=== PATIENT | male | born 1950 | race Caucasian/White ===

== ENCOUNTER 2017-04-30 14:13 | Observation (INO) | payer OTHER ==
[2017-04-30 14:13] VITALS: BP 144/92; PULSE 133; RESP 24; TEMP 98.2; O2SAT 95
[2017-04-30 14:30] VITALS: O2SAT 97
[2017-04-30] MEDS ORDERED: LEVOFLOXACIN 750 MG TAB PO ONE (14:30)
[2017-04-30] MEDS ORDERED: predniSONE 20 MG TAB PO ONE (14:30)
[2017-04-30] MEDS ORDERED: AZITHROMYCIN 250 MG TAB PO ONE (14:30)
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
[2017-04-30] MEDS: RESP: ALBUTEROL 2.5 MG/IPRATROPIUM 0.5 MG NEB (SCH) INH (14:57)
--- NOTE | 2017-04-30 16:20 | RADRPT ---
EXAM DATE/TIME: 04/30/2017 15:47 [facility] COMPARISON: No previous studies available for comparison. INDICATIONS : Chest pain and dyspnea. MEDICAL HISTORY : Chronic obstructive pulmonary disease. SURGICAL HISTORY : Tonsillectomy. Left shoulder. ENCOUNTER: Initial ACUITY: 1 day PAIN SCORE: 0/10 LOCATION: Bilateral chest FINDINGS: Bibasilar streakiness is noted consistent with atelectasis and/or scarring. The heart and mediastina l structures are normal. The pulmonary vascular pattern is normal. Hardware is noted within the left humerus. CONCLUSION: Bibasilar streakiness consistent with atelectasis and/or scarring. Sundar Salcido MD on April 30, 2017 at 16:13 Board Certified Radiologist. This report was verified electronically.
[2017-04-30] MEDS ORDERED: AZITHROMYCIN 250 MG TAB PO SCH (17:00)
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
[2017-04-30] MEDS ORDERED: SODIUM CHLORIDE 0.9% FLUSH 10 ML FLUSH IV FLUSH PRN (17:30)
[2017-04-30] MEDS ORDERED: RESP: ALBUTEROL 2.5 MG/3 ML NEB (PRN) INH (17:30)
[2017-04-30 17:37] LABS: AUTOMATED NEUTROPHIL # 9.5 TH/MM3 (1.8-7.7); BASOPHIL % 0.3 % (0.0-2.0); EOSINOPHIL # 0.2 TH/MM3 (0-0.4); EOSINOPHIL % 1.4 % (0.0-4.0); HEMATOCRIT 44.6 % (39.0-51.0); HEMO FLAGS DIFF FINAL; LYMPH % 11.3 % (9.0-44.0); LYMPHOCYTE # 1.3 TH/MM3 (1.0-4.8); MEAN CELL VOLUME 90.7 FL (80.0-100.0); MEAN CORPUSCULAR HEMOGLOBIN 29.9 PG (27.0-34.0); MONO % 5.1 % (0.0-8.0); NEUT % 81.9 % (16.0-70.0); PLATELET COUNT 219 TH/MM3 (150-450); RED BLOOD COUNT 4.92 MIL/MM3 (4.50-5.90); RED CELL DISTRIBUTION WIDTH 15.6 % (11.6-17.2); WHITE BLOOD COUNT 11.5 TH/MM3 (4.0-11.0)
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
[2017-04-30] MEDS ORDERED: RESP: ALBUTEROL 2.5 MG/IPRATROPIUM 0.5 MG NEB (PRN) NEB (17:45)
[2017-04-30 17:50] VITALS: BP 161/84; PULSE 112; RESP 24; O2SAT 97
[2017-04-30 17:57] LABS: BICARBONATE 27.9 MEQ/L (21.0-32.0); POTASSIUM 3.8 MEQ/L (3.5-5.1)
[2017-04-30] MEDS: SODIUM CHLORIDE 0.9% FLUSH 10 ML FLUSH IV FLUSH SCH (18:09)
[2017-04-30] MEDS: methylPREDNISolone SOD SUCC 125 MG/2 ML VIAL IVP SCH (18:09)
[2017-04-30 18:42] VITALS: BP 144/88; PULSE 120; RESP 16; TEMP 98.7; O2SAT 94
[2017-04-30] MEDS: RESP: ALBUTEROL 2.5 MG/IPRATROPIUM 0.5 MG NEB (SCH) NEB ×2 (19:58→22:06)
[2017-04-30 20:34] VITALS: BP 163/88; PULSE 130; RESP 20; TEMP 97.8; O2SAT 95
[2017-04-30] MEDS: BUDESONIDE-FORMOTEROL 160/4.5 MCG INHALER INH SCH (21:49)
[2017-04-30] MEDS ORDERED: RESP: ALBUTEROL 2.5 MG/IPRATROPIUM 0.5 MG NEB (SCH) INH (22:00)
[2017-04-30 22:08] VITALS: O2SAT 97
[2017-05-01] VITALS (8 sets, daily range): BP systolic 139–178; BP diastolic 79–94; PULSE 111–137; RESP 16–20; TEMP 97.4–98.6; O2SAT 93–98
[2017-05-01] MEDS: methylPREDNISolone SOD SUCC 125 MG/2 ML VIAL IVP SCH ×3 (00:50→12:32)
[2017-05-01] MEDS: RESP: ALBUTEROL 2.5 MG/IPRATROPIUM 0.5 MG NEB (SCH) NEB (07:21)
[2017-05-01] MEDS: BUDESONIDE-FORMOTEROL 160/4.5 MCG INHALER INH SCH ×2 (09:52→20:41)
[2017-05-01] MEDS: SODIUM CHLORIDE 0.9% FLUSH 10 ML FLUSH IV FLUSH SCH ×2 (09:53→20:42)
[2017-05-01] MEDS: LEVOFLOXACIN 750 MG TAB PO SCH (09:53)
[2017-05-01] MEDS: ENOXAPARIN SODIUM 40 MG/0.4 ML SYRINGE SQ SCH (09:53)
[2017-05-01] MEDS: RESP: IPRATROPIUM 0.5 MG/2.5 ML NEB NEB SCH ×2 (13:15→19:30)
[2017-05-01 14:31] LABS: BICARBONATE 26.1 MEQ/L (21.0-32.0); POTASSIUM 4.1 MEQ/L (3.5-5.1)
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
[2017-05-01] MEDS: predniSONE 20 MG TAB PO SCH (20:42)
[2017-05-02] VITALS (8 sets, daily range): BP systolic 138–183; BP diastolic 74–99; PULSE 102–121; RESP 15–22; TEMP 97.5–98.4; O2SAT 93–98
[2017-05-02 02:15] LABS: FREE T4 1.14 NG/DL (0.76-1.46)
[2017-05-02] MEDS: RESP: IPRATROPIUM 0.5 MG/2.5 ML NEB NEB SCH ×3 (07:59→20:42)
[2017-05-02] MEDS: NIFEdipine 60 MG SUSTAINED RELEASE TAB PO SCH (09:19)
[2017-05-02] MEDS: LEVOFLOXACIN 750 MG TAB PO SCH (09:19)
[2017-05-02] MEDS: predniSONE 20 MG TAB PO SCH ×2 (09:19→20:34)
[2017-05-02] MEDS: BUDESONIDE-FORMOTEROL 160/4.5 MCG INHALER INH SCH ×2 (09:20→20:34)
[2017-05-02] MEDS: ENOXAPARIN SODIUM 40 MG/0.4 ML SYRINGE SQ SCH (09:20)
[2017-05-02] MEDS: SODIUM CHLORIDE 0.9% FLUSH 10 ML FLUSH IV FLUSH SCH ×2 (09:21→20:34)
[2017-05-02] MEDS ORDERED: CYCLOBENZAPRINE HCL 10 MG TAB PO PRN (12:00)
[2017-05-02] MEDS: GABAPENTIN 100 MG CAP PO SCH ×2 (13:30→18:14)
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
--- NOTE | 2017-05-02 14:14 | EKG ---
Date Performed: 05/01/2017 Time Performed: 11:15:28 PTAGE: 66 years EKG: SINUS TACHYCARDIA WITH OCCASIONAL VENTRICULAR PREMATURE COMPLEXES ABNORMAL RHYTHM ECG Evangelista red to the PREVIOUS TRACING PVCs are new, otherwise no significant change. Previous heart rate 144 with sinus tachycardia. PREVIOUS TRACIN08/27/2014 14.58 DOCTOR: Jey Cross Interpretating Date/Time 05/02/2017 14:13:49
[2017-05-02 16:04] LABS: HEMOGLOBIN A1a 0.9 %; HEMOGLOBIN A1b 2.2 %; HEMOGLOBIN Ao 82.7 %; HEMOGLOBIN LA1C 2.1 %; HEMOGLOBIN P3 4.5 %
[2017-05-03] VITALS (8 sets, daily range): BP systolic 127–141; BP diastolic 60–80; PULSE 99–120; RESP 18–22; TEMP 96.6–98.1; O2SAT 96–99
[2017-05-03] MEDS: ACETAMINOPHEN 325 MG TAB PO PRN ×2 (07:05→22:38)
[2017-05-03] MEDS: RESP: IPRATROPIUM 0.5 MG/2.5 ML NEB NEB SCH ×3 (07:28→20:20)
[2017-05-03] MEDS: NIFEdipine 60 MG SUSTAINED RELEASE TAB PO SCH (09:30)
[2017-05-03] MEDS: GABAPENTIN 100 MG CAP PO SCH ×3 (09:30→18:23)
[2017-05-03] MEDS: LEVOFLOXACIN 750 MG TAB PO SCH (09:30)
[2017-05-03] MEDS: predniSONE 20 MG TAB PO SCH ×2 (09:30→22:37)
[2017-05-03] MEDS: SODIUM CHLORIDE 0.9% FLUSH 10 ML FLUSH IV FLUSH SCH ×2 (09:31→22:37)
[2017-05-03] MEDS: BUDESONIDE-FORMOTEROL 160/4.5 MCG INHALER INH SCH ×2 (09:31→22:39)
[2017-05-03] MEDS: ENOXAPARIN SODIUM 40 MG/0.4 ML SYRINGE SQ SCH (09:31)
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
[2017-05-03] MEDS ORDERED: MAGNESIUM HYDROXIDE SUSP 30 ML CUP PO PRN (10:00)
[2017-05-03] MEDS ORDERED: SENNOSIDES 8.6 MG TAB PO PRN (10:00)
[2017-05-03] MEDS ORDERED: NALOXONE HCL 0.4 MG/ML AMP IV PUSH PRN (10:00)
[2017-05-03] MEDS ORDERED: LACTULOSE SYRUP 20 GM/30 ML CUP PO PRN (10:00)
[2017-05-03] MEDS ORDERED: BISACODYL 10 MG SUPP RECTAL PRN (10:00)
[2017-05-03] MEDS: DOCUSATE SODIUM 50 MG/SENNA 8.6 MG TAB PO SCH (22:37)
[2017-05-03] MEDS ORDERED: GLUCAGON 1 MG/ML VIAL OTHER PRN (23:45)
[2017-05-03] MEDS ORDERED: DEXTROSE 50% IN WATER 50 ML VIAL(D50) IV PRN (23:45)
[2017-05-04] VITALS (8 sets, daily range): BP systolic 99–147; BP diastolic 65–79; PULSE 106–125; RESP 15–18; TEMP 97.6–98.6; O2SAT 93–98
[2017-05-04] MEDS: RESP: IPRATROPIUM 0.5 MG/2.5 ML NEB NEB SCH ×3 (07:35→19:33)
[2017-05-04] MEDS: INSULIN ASPART SUPPLEMENTAL SCALE SQ SCH ×4 (08:00→20:18)
[2017-05-04] MEDS: DOCUSATE SODIUM 50 MG/SENNA 8.6 MG TAB PO SCH ×2 (08:01→20:08)
[2017-05-04] MEDS: LEVOFLOXACIN 750 MG TAB PO SCH (08:08)
[2017-05-04] MEDS: NIFEdipine 60 MG SUSTAINED RELEASE TAB PO SCH (08:08)
[2017-05-04] MEDS: GABAPENTIN 100 MG CAP PO SCH ×3 (08:08→17:54)
[2017-05-04] MEDS: SODIUM CHLORIDE 0.9% FLUSH 10 ML FLUSH IV FLUSH SCH ×2 (08:08→20:17)
[2017-05-04] MEDS: ENOXAPARIN SODIUM 40 MG/0.4 ML SYRINGE SQ SCH (08:08)
[2017-05-04] MEDS: predniSONE 20 MG TAB PO SCH ×2 (08:08→20:08)
[2017-05-04] MEDS: BUDESONIDE-FORMOTEROL 160/4.5 MCG INHALER INH SCH ×2 (08:09→20:12)
[2017-05-04] MEDS ORDERED: VENTAER INH (14:54)
[2017-05-04] MEDS ORDERED: METF500T PO (14:54)
[2017-05-04] MEDS ORDERED: LEVA750T9 PO (14:54)
[2017-05-04] MEDS ORDERED: NIFE60TA8 PO (14:54)
[2017-05-04] MEDS ORDERED: SYMB160A INH (14:54)
[2017-05-04] MEDS ORDERED: ALBUTEROL SULFATE 90 MCG/ACT HFA 18 GM INHALER INH PRN (15:00)
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
[2017-05-04] MEDS: INSULIN DETEMIR 100 UNITS/ML VIAL SQ SCH (20:17)
[2017-05-05 03:26] VITALS: BP 132/71; PULSE 102; RESP 18; TEMP 98.1; O2SAT 98
[2017-05-05] MEDS: RESP: IPRATROPIUM 0.5 MG/2.5 ML NEB NEB SCH ×3 (07:48→19:53)
[2017-05-05 07:55] VITALS: O2SAT 95
[2017-05-05] MEDS: INSULIN ASPART SUPPLEMENTAL SCALE SQ SCH ×4 (08:00→21:09)
[2017-05-05 08:12] VITALS: BP 138/76; PULSE 100; RESP 16; TEMP 98.5; O2SAT 97
[2017-05-05] MEDS: BUDESONIDE-FORMOTEROL 160/4.5 MCG INHALER INH SCH ×2 (08:36→21:07)
[2017-05-05] MEDS: LEVOFLOXACIN 750 MG TAB PO SCH (08:36)
[2017-05-05] MEDS: SODIUM CHLORIDE 0.9% FLUSH 10 ML FLUSH IV FLUSH SCH ×2 (08:36→21:07)
[2017-05-05] MEDS: NIFEdipine 60 MG SUSTAINED RELEASE TAB PO SCH (08:36)
[2017-05-05] MEDS: GABAPENTIN 100 MG CAP PO SCH ×3 (08:37→17:14)
[2017-05-05] MEDS: ENOXAPARIN SODIUM 40 MG/0.4 ML SYRINGE SQ SCH (08:38)
[2017-05-05] MEDS: DOCUSATE SODIUM 50 MG/SENNA 8.6 MG TAB PO SCH ×2 (08:38→21:06)
[2017-05-05] MEDS: predniSONE 20 MG TAB PO SCH ×2 (08:38→21:06)
[2017-05-05 11:57] VITALS: BP 148/72; PULSE 114; RESP 17; TEMP 98.8; O2SAT 95
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
[2017-05-05] MEDS: ACETAMINOPHEN 325 MG TAB PO PRN (16:19)
[2017-05-05 19:50] VITALS: BP 132/66; PULSE 117; RESP 18; TEMP 98.2; O2SAT 97
[2017-05-05 19:54] VITALS: O2SAT 96
[2017-05-05] MEDS: CARVEDILOL 6.25 MG TAB PO SCH (21:06)
[2017-05-05] MEDS: INSULIN DETEMIR 100 UNITS/ML VIAL SQ SCH (21:08)
[2017-05-06 05:00] VITALS: BP 132/67; PULSE 97; RESP 18; TEMP 98.4; O2SAT 97
[2017-05-06] MEDS: RESP: IPRATROPIUM 0.5 MG/2.5 ML NEB NEB SCH (07:37)
[2017-05-06 07:38] VITALS: O2SAT 98
[2017-05-06 07:43] VITALS: BP 140/77; PULSE 108; RESP 20; TEMP 97.4; O2SAT 98
[2017-05-06] MEDS: INSULIN ASPART SUPPLEMENTAL SCALE SQ SCH (08:00)
[2017-05-06] MEDS: CARVEDILOL 6.25 MG TAB PO SCH (08:15)
[2017-05-06] MEDS: predniSONE 20 MG TAB PO SCH (08:15)
[2017-05-06] MEDS: LEVOFLOXACIN 750 MG TAB PO SCH (08:15)
[2017-05-06] MEDS: GABAPENTIN 100 MG CAP PO SCH (08:15)
[2017-05-06] MEDS: DOCUSATE SODIUM 50 MG/SENNA 8.6 MG TAB PO SCH (08:15)
[2017-05-06] MEDS: SODIUM CHLORIDE 0.9% FLUSH 10 ML FLUSH IV FLUSH SCH (08:15)
[2017-05-06] MEDS: NIFEdipine 60 MG SUSTAINED RELEASE TAB PO SCH (08:15)
[2017-05-06] MEDS: ENOXAPARIN SODIUM 40 MG/0.4 ML SYRINGE SQ SCH (08:16)
[2017-05-06] MEDS: BUDESONIDE-FORMOTEROL 160/4.5 MCG INHALER INH SCH (09:27)
[2017-05-06] MEDS ORDERED: CARV6.25 PO (10:01)
== END 2017-05-06 11:43 | disposition home or self-care (01) ==
LOC: NEPB 14:13 → NEDA 17:19 → NEPHCDU 19:16
PROVIDERS: ADMIT Hospitalist; ATTEND Hospitalist
DX: J44.1 Chronic obstructive pulmonary disease with (acute) exacerbation (principal); N17.9 Acute kidney failure, unspecified; E11.65 Type 2 diabetes mellitus with hyperglycemia; R00.0 Tachycardia, unspecified; Z99.81 Dependence on supplemental oxygen; Z87.891 Personal history of nicotine dependence; Z79.4 Long term (current) use of insulin
CPT/HCPCS: 71020; 80048; 82948; 83036; 84439; 84443; 85025; 87804; 93005; 94150; 94640; 94664; 96372; 96374; 96376; 99285; G0378; J1650; J1815; J2930; J7512; J7644

== ENCOUNTER 2017-09-25 13:24 | Observation (INO) | payer OTHER ==
[~2017-09-25] VITALS: Ht 175.3 cm; Wt 110.0 kg
[2017-09-25] VITALS (7 sets, daily range): BP systolic 132–171; BP diastolic 73–87; PULSE 121–135; RESP 18–32; TEMP 97.3–98.5; O2SAT 93–97
[~2017-09-25 13:24] MED LIST: CARV6.25 PO; METF500T PO; NIFE60TA8 PO; SYMB160A INH; VENTAER INH
[2017-09-25] MEDS ORDERED: SODIUM CHLORIDE 0.9% FLUSH 10 ML FLUSH IVF PRN (13:45)
[2017-09-25 14:07] LABS: AUTOMATED NEUTROPHIL # 4.9 TH/MM3 (1.8-7.7); BASOPHIL % 0.5 % (0.0-2.0); EOSINOPHIL # 0.2 TH/MM3 (0-0.4); EOSINOPHIL % 2.8 % (0.0-4.0); HEMATOCRIT 40.6 % (39.0-51.0); LYMPH % 18.3 % (9.0-44.0); LYMPHOCYTE # 1.3 TH/MM3 (1.0-4.8); MEAN CELL VOLUME 90.4 FL (80.0-100.0); MEAN CORPUSCULAR HEMOGLOBIN 31.1 PG (27.0-34.0); MEAN CORPUSCULAR HGB CONC 34.4 % (32.0-36.0); MEAN PLATELET VOLUME 8.6 FL (7.0-11.0); MONO % 7.3 % (0.0-8.0); MONOCYTE # 0.5 TH/MM3 (0-0.9); NEUT % 71.1 % (16.0-70.0); PLATELET COUNT 229 TH/MM3 (150-450); RED CELL DISTRIBUTION WIDTH 14.3 % (11.6-17.2); WHITE BLOOD COUNT 6.8 TH/MM3 (4.0-11.0)
--- NOTE | 2017-09-25 14:12 | RADRPT ---
EXAM DATE/TIME: 09/25/2017 13:45 [facility] COMPARISON: CHEST SINGLE AP, August 27, 2014, 15:06. INDICATIONS : Short of breath. MEDICAL HISTORY : Chronic obstructive pulmonary disease. SURGICAL HISTORY : Tonsillectomy. Left shoulder. ENCOUNTER: Initial ACUITY: 3 days PAIN SCORE: 0/10 LOCATION: Bilateral chest FINDINGS: Bibasilar streaky densities are noted consistent with atelectasis and/or developing infiltrates. Clin ical correlation is recommended. The heart is normal. The pulmonary vascular pattern is also normal. Degenerative changes and scoliosis of the thoracic spine are noted. CONCLUSION: Bibasilar streaky densities consistent with atelectasis and/or developing of age. Clinical correlatio n is recommended. Degenerative changes and scoliosis of the thoracic spine. Sundar Salcido MD on September 25, 2017 at 14:08 Board Certified Radiologist. This report was verified electronically.
[2017-09-25] MEDS ORDERED: SODIUM CHLOR 0.9% 1000 ML INJ 1,000 ML IV ONE (14:15)
[2017-09-25] MEDS ORDERED: methylPREDNISolone SOD SUCC 125 MG/2 ML VIAL IV PUSH ONE (14:15)
[2017-09-25 14:18] LABS: INTERNATIONAL NORMALIZED RATIO 1.1 RATIO; PROTHROMBIN TIME - PATIENT 10.7 SEC (9.8-11.6)
[2017-09-25] MEDS: RESP: ALBUTEROL 2.5 MG/IPRATROPIUM 0.5 MG NEB (SCH) INH ×2 (14:24→14:25)
[2017-09-25] MEDS ORDERED: cefTRIAXone INJ 1,000 MG in SODIUM CHLORIDE 0.9% INJ 100 ML IV ONE (14:30)
[2017-09-25] MEDS ORDERED: AZITHROMYCIN INJ 500 MG in SODIUM CHLOR 0.9% 250 ML INJ 250 ML IV ONE (14:30)
[2017-09-25 14:36] LABS: ALBUMIN 3.6 GM/DL (3.4-5.0); AST (GOT) 22 U/L (15-37); BICARBONATE 29.6 MEQ/L (21.0-32.0); BLOOD UREA NITROGEN 26 MG/DL (7-18); CALCIUM 8.7 MG/DL (8.5-10.1); CHLORIDE 105 MEQ/L (98-107); CREATININE 1.39 MG/DL (0.60-1.30); GLOMERULAR FILTRATION RATE 51 ML/MIN (>89); GLUCOSE,RANDOM 165 MG/DL (74-106); SODIUM (NA) 141 MEQ/L (136-145)
[2017-09-25 14:41] LABS: ALKALINE PHOSPHATASE 76 U/L (45-117); ALT (GPT) 19 U/L (12-78); TOTAL BILIRUBIN ADULT 0.4 MG/DL (0.2-1.0); TROPONIN I LESS THAN 0.02 NG/ML (0.02-0.05)
--- NOTE | 2017-09-25 15:03 | PD ---
HPI Chief Complaint: Respiratory Symptoms Time Seen by Provider: 13:32 Travel History International Travel<30 days: No Contact w/Intl Traveler<30days: No Traveled to known affect area: No History of Present Illness HPI 66-year-old male with PMH of COPD, DM, on metformin, former smoker, O2 dependent on 3-4 L at home presents to the ED via EMS for evaluation of shortness of breath. Gradual onset. Worsened by exertion. Patient denies associated chest pain, diaphoresis, palpitations. He denies loss of appetite, abdominal pain, nausea, vomiting, dysuria, changes in bowel habits, lower extremity edema. He denies worsening cough, fevers, chills, sinus congestion or runny nose. Denies recent long periods of mobilization, history of PE/DVT. Also complains of right ear pain and bleeding after using a q-tip yesterday. States that he CAN hear out of the ear. [facility] PFSH Past Medical History Arthritis: Yes Asthma: No Autoimmune Disease: No Blood Disorders: No Anxiety: No Depression: No Cancer: No Cardiovascular Problems: No COPD: Yes Diminished Hearing: Yes ([place] [employer]) Endocrine: No Genitourinary: No Immune Disorder: No Musculoskeletal: No Neurologic: No Psychiatric: No Reproductive: No Respiratory: Yes Immunizations Current: Yes Sickle Cell Disease: No Sleep Apnea: No Past Surgical History Abdominal Surgery: No Cardiac Surgery: No Ear Surgery: No Endocrine Surgery: No Eye Surgery: No Genitourinary Surgery: No Gynecologic Surgery: No Oral Surgery: No Thoracic Surgery: No Tonsillectomy: Yes Other Surgery: Yes Social History Alcohol Use: No Tobacco Use: No Substance Use: No Allergies-Medications (Allergen,Severity, Reaction): Coded Allergies: No Known Allergies (Unverified Allergy, Unknown, 09/25/17) Reported Meds & Prescriptions Reported Meds & Active Scripts Active Coreg (Carvedilol) 6.25 Mg Tab 6.25 Mg PO Q12HR Ventolin Hfa 18 GM Inh (Albuterol Sulfate) 90 Mcg/Act Aer 2 Puff INH Q4-6H PRN Metformin (Metformin HCl) 500 Mg Tab 500 Mg PO BIDPC With meals Symbicort Inh (Budesonide/Formoterol Fumarate) 160-4.5 Mcg/Act Aero 1 Puff INH Q12HR 30 Days Nifedipine ER 24 HR (Nifedipine) 60 Mg Tab 60 Mg PO DAILY Review of Systems Except as stated in HPI: all other systems reviewed are Neg Physical Exam Narrative GENERAL: Well-nourished, well-developed tachypneic white male in no acute distress. SKIN: Focused skin assessment warm/dry. HEAD: Normocephalic. EYES: No scleral icterus. No injection or drainage. ENT: Left external canal with cerumen impaction which occludes the tympanic membrane. Right external canal with a small amount of blood, inflamed, difficult to determine if there is a cerumen impaction or possible mass. NECK: Supple, trachea midline. No JVD or lymphadenopathy. CARDIOVASCULAR: Regular rate and rhythm without murmurs, gallops, or rubs. RESPIRATORY: Breath sounds clear bilaterally. Diminished air movement bilaterally. No accessory muscle use. GASTROINTESTINAL: Abdomen soft, non-tender, nondistended. Active bowel sounds. MUSCULOSKELETAL: No cyanosis, or edema. BACK: Nontender without obvious deformity. No CVA tenderness. Data Data Last Documented VS Vital Signs Date Time Temp Pulse Resp B/P (MAP) Pulse Ox O2 Delivery O2 Flow Rate FiO2 09/25/17 14:27 97 Nasal Cannula 3.00 09/25/17 13:37 09/25/17 13:33 97.8 132 32 Orders Orders Complete Blood Count With Diff (09/25/17 13:33) Comprehensive Metabolic Panel (09/25/17 13:33) B-Type Natriuretic Peptide (09/25/17 13:33) Act Partial Throm Time (Ptt) (09/25/17 13:33) Prothrombin Time / Inr (Pt) (09/25/17 13:33) Magnesium (Mg) (09/25/17 13:33) Ckmb (Isoenzyme) Profile (09/25/17 13:33) Troponin I (09/25/17 13:33) Urinalysis - C+S If Indicated (09/25/17 13:33) Iv Access Insert/Monitor (09/25/17 13:33) Electrocardiogram (09/25/17 13:33) Ecg Monitoring (09/25/17 13:33) Oximetry (09/25/17 13:33) Oxygen Administration (09/25/17 13:33) Chest, Single Ap (09/25/17 13:33) Sodium Chloride 0.9% Flush (Ns Flush) (09/25/17 13:45) Blood Glucose (09/25/17 13:42) Methylprednisolone So Succ Inj (Solumedr (09/25/17 14:15) Albuterol-Ipratropium Neb (Duoneb Neb) (09/25/17 14:15) Sodium Chlor 0.9% 1000 Ml Inj (Ns 1000 M (09/25/17 14:15) Ceftriaxone Inj (Rocephin Inj) (09/25/17 14:30) Azithromycin Inj (Zithromax Inj) (09/25/17 14:30) CKMB (09/25/17 13:45) CKMB% (09/25/17 13:45) Acetaminophen (Tylenol) (09/25/17 15:15) Jntgessc-Hxfrkeok-Ei Otic Soln (Cortispo (09/25/17 18:00) Admit Order (Ed Use Only) (09/25/17 16:25) Ct Pulmonary Angiogram (09/25/17 ) Labs Laboratory Tests Test 09/25/17 13:45 White Blood Count 6.8 TH/MM3 Red Blood Count 4.50 MIL/MM3 Hemoglobin 14.0 GM/DL Hematocrit 40.6 % Mean Corpuscular Volume 90.4 FL Mean Corpuscular Hemoglobin 31.1 PG Mean Corpuscular Hemoglobin Concent 34.4 % Red Cell Distribution Width 14.3 % Platelet Count 229 TH/MM3 Mean Platelet Volume 8.6 FL Neutrophils (%) (Auto) 71.1 % Lymphocytes (%) (Auto) 18.3 % Monocytes (%) (Auto) 7.3 % Eosinophils (%) (Auto) 2.8 % Basophils (%) (Auto) 0.5 % Neutrophils # (Auto) 4.9 TH/MM3 Lymphocytes # (Auto) 1.3 TH/MM3 Monocytes # (Auto) 0.5 TH/MM3 Eosinophils # (Auto) 0.2 TH/MM3 Basophils # (Auto) 0.0 TH/MM3 CBC Comment DIFF FINAL Differential Comment Prothrombin Time 10.7 SEC Prothromb Time International Ratio 1.1 RATIO Activated Partial Thromboplast Time 27.2 SEC Blood Urea Nitrogen 26 MG/DL Creatinine 1.39 MG/DL Random Glucose 165 MG/DL Total Protein 7.0 GM/DL Albumin 3.6 GM/DL Calcium Level 8.7 MG/DL Magnesium Level 2.0 MG/DL Alkaline Phosphatase 76 U/L Aspartate Amino Transf (AST/SGOT) 22 U/L Alanine Aminotransferase (ALT/SGPT) 19 U/L Total Bilirubin 0.4 MG/DL Sodium Level 141 MEQ/L Potassium Level 3.6 MEQ/L Chloride Level 105 MEQ/L Carbon Dioxide Level 29.6 MEQ/L Anion Gap 6 MEQ/L Estimat Glomerular Filtration Rate 51 ML/MIN Total Creatine Kinase 416 U/L Creatine Kinase MB 2.0 NG/ML Creatine Kinase MB % 0.5 % Troponin I LESS THAN 0.02 NG/ML B-Type Natriuretic Peptide 7 PG/ML MDM Medical Decision Making Medical Screen Exam Complete: Yes Emergency Medical Condition: Yes Differential Diagnosis COPD exacerbation versus PNA versus ruptured tympanic membrane versus cerumen impaction versus other Narrative Course 66-year-old male with PMH of COPD, DM, on metformin, former smoker, O2 dependent on 3-4 L at home presents to the ED via EMS for evaluation of shortness of breath. Worsened by exertion. Patient denies associated chest pain , diaphoresis, palpitations. Also complains of right ear pain and bleeding after using a q-tip yesterday. States that he CAN hear out of the ear. [facility] Temp 97.8, pulse 140, RR 32, O2 sats 93% on nonrebreather 8 L upon arrival. Physical exam reveals a nontoxic-appearing tachypneic white male. Breath sounds clear but limited air movement. No lower extremity edema. There is bleeding in the right ear and a reddish mass which are suspect as an impaction. I attempted irrigation but this was painful and was abandoned. Otherwise unremarkable. IV was established. Patient was administered IV steroids, DuoNeb 3, 1 L normal saline. EKG rate 122, sinus tachycardia. NH interval 147, QRS 102, QTC 392. Normal axis. No acute ST changes. Reviewed by Dr. Zabala. CXR: Bibasilar strength he densities consistent with atelectasis and/or developing infiltrate per radiology read. Cardiac enzymes negative 1 BNP 7 CBC: No concerning abnormalities. CMP: BUN 26, creatinine 1.39. Glucose 165. On recheck the patient states that he feels short of breath with any movement. He states that he feels anxious about his ear. Heart rate remains elevated at 121. O2 sats 96% on 3 L by nasal cannula. This is COPD exacerbation. I discussed the case with Dr. Yusuf who agrees to accept the patient to the medicine service for observation. Please see medicine notes for disposition. Procedures Procedure Narrative Right ear irrigation: 30 cc of 50-50 mix of peroxide and warm water was instilled into the right external canal. Patient states this was painful. The ear was drained and dried with a Q-tip. Landmarks still indistinguishable secondary to bleeding and possible cerumen impaction. Lupe John Sep 25, 2017 15:03
[2017-09-25] MEDS ORDERED: ACETAMINOPHEN 500 MG CPLT PO ONE (15:15)
[2017-09-25] MEDS ORDERED: SODIUM CHLORIDE 0.9% FLUSH 10 ML FLUSH IV FLUSH PRN (16:30)
[2017-09-25] MEDS ORDERED: RESP: IPRATROPIUM 0.5 MG/2.5 ML NEB NEB PRN (16:30)
[2017-09-25] MEDS ORDERED: NALOXONE HCL 0.4 MG/ML AMP IV PUSH PRN (16:30)
[2017-09-25] MEDS ORDERED: LEVOFLOXACIN 750 MG PREMIX INJ 150 ML IV SCH (17:00)
[2017-09-25] MEDS: NEOMYCIN/POLYMYXIN/HYDROCORT OTIC SOLN 10 ML BTL RIGHT EAR SCH (18:00)
--- NOTE | 2017-09-25 18:02 | HHI.HP ---
[facility] Admission Diagnosis COPD exacerbation Diagnoses: Travel History International Travel<30 Days: No Contact w/Intl Traveler <30 Da: No Traveled to Known Affected Are: No History of Present Illness yesterday night, put qtip to right ear and heard a pop and then cant hear from that then have panick attck, short of breath came on non rebreather on home o2 4l no fever have had trouble balancing for months and dizziness when he gets up for months yesterday, unusally, felt naseous was going to go [facility] to [facility] my [facility], and could not catch my brath, could not function called 911 no increase in cough no fever no burnign or pain on urination Past Family Social History Past Medical History dm copd home oxygen htn Past Surgical History left shoulder / arm sx Allergies: Coded Allergies: No Known Allergies (Unverified Allergy, Unknown, 09/25/17) Family History none that he knows of havent seen my family in 30yrs Social History quit smoking about 3-4 yrs ago no etoh or drug abuse lives by himself, still driving Physical Exam Vital Signs Vital Signs Date Time Temp Pulse Resp B/P (MAP) Pulse Ox O2 Delivery O2 Flow Rate FiO2 09/25/17 17:29 97.3 121 24 151/73 (99) 96 09/25/17 17:01 113 15 97 Nasal Cannula 2.00 09/25/17 14:27 97 Nasal Cannula 3.00 09/25/17 13:37 95 Nasal Cannula 4.00 09/25/17 13:37 95 Nasal Cannula 4.00 09/25/17 13:37 95 Nasal Cannula 4.00 09/25/17 13:33 97.8 132 32 171/81 (111) 95 Nasal Cannula 4.00 09/25/17 13:32 140 32 93 Aerosol Mask Physical Exam GENERAL: This is a well-nourished, well-developed patient, in no apparent distress. SKIN: No rashes, ecchymoses or lesions. Cool and dry. HEAD: Atraumatic. Normocephalic. No temporal or scalp tenderness. EYES: Pupils equal round and reactive. Extraocular motions intact. No scleral icterus. No injection or drainage. ENT: Nose without bleeding, purulent drainage or septal hematoma. Throat without erythema, tonsillar hypertrophy or exudate. Uvula midline. Airway patent. NECK: Trachea midline. No JVD or lymphadenopathy. Supple, nontender, no meningeal signs. CARDIOVASCULAR: Regular rate and rhythm without murmurs, gallops, or rubs. RESPIRATORY: Clear to auscultation. Breath sounds equal bilaterally. No wheezes , rales, or rhonchi. GASTROINTESTINAL: Abdomen soft, non-tender, nondistended. No hepato-splenomegaly , or palpable masses. No guarding. MUSCULOSKELETAL: Extremities without clubbing, cyanosis, or edema. No joint tenderness, effusion, or edema noted. No calf tenderness. Negative Homans sign bilaterally. NEUROLOGICAL: Awake and alert. Cranial nerves II through XII intact. Motor and sensory grossly within normal limits. Five out of 5 muscle strength in all muscle groups. Normal speech. Laboratory Laboratory Tests Test 09/25/17 13:45 White Blood Count 6.8 Red Blood Count 4.50 Hemoglobin 14.0 Hematocrit 40.6 Mean Corpuscular Volume 90.4 Mean Corpuscular Hemoglobin 31.1 Mean Corpuscular Hemoglobin Concent 34.4 Red Cell Distribution Width 14.3 Platelet Count 229 Mean Platelet Volume 8.6 Neutrophils (%) (Auto) 71.1 Lymphocytes (%) (Auto) 18.3 Monocytes (%) (Auto) 7.3 Eosinophils (%) (Auto) 2.8 Basophils (%) (Auto) 0.5 Neutrophils # (Auto) 4.9 Lymphocytes # (Auto) 1.3 Monocytes # (Auto) 0.5 Eosinophils # (Auto) 0.2 Basophils # (Auto) 0.0 CBC Comment DIFF FINAL Differential Comment Prothrombin Time 10.7 Prothromb Time International Ratio 1.1 Activated Partial Thromboplast Time 27.2 Blood Urea Nitrogen 26 Creatinine 1.39 Random Glucose 165 Total Protein 7.0 Albumin 3.6 Calcium Level 8.7 Magnesium Level 2.0 Alkaline Phosphatase 76 Aspartate Amino Transf (AST/SGOT) 22 Alanine Aminotransferase (ALT/SGPT) 19 Total Bilirubin 0.4 Sodium Level 141 Potassium Level 3.6 Chloride Level 105 Carbon Dioxide Level 29.6 Anion Gap 6 Estimat Glomerular Filtration Rate 51 Total Creatine Kinase 416 Creatine Kinase MB 2.0 Creatine Kinase MB % 0.5 Troponin I LESS THAN 0.02 B-Type Natriuretic Peptide 7 Result Diagram: 09/25/175 09/25/17 1345 Caprini VTE Risk Assessment Caprini Risk Assessment Model Point Value = 1 Point Value = 2 Point Value = 3 Point Value = 5 Age 41-60 Minor surgery BMI > 25 kg/m2 Swollen legs Varicose veins or History of unexplained or recurrent spontaneous Oral contraceptives or hormone replacement Sepsis (< 1 month) Serious lung disease, including pneumonia (< 1 month) Abnormal pulmonary function Acute myocardial infarction Congestive heart failure (< 1 month) History of inflammatory bowel disease Medical patient at bed rest Age 61-74 Arthroscopic surgery Major open surgery (> 45 min) Laparoscopic surgery (> 45 min) Malignancy Confined to bed (> 72 hours) Immobilizing plaster cast Central venous access Age >= 75 History of VTE Family history of VTE Factor V Leiden Prothrombin [id number] Lupus anticoagulant Anticardiolipin antibodies Elevated serum homocysteine Heparin-induced thrombocytopenia Other congenital or acquired thrombophilia Stroke (< 1 month) Elective arthroplasty Hip, pelvis, or leg fracture Acute spinal cord injury (< 1 month) Prophylaxis Regimen Total Risk Factor Score Risk Level Prophylaxis Regimen 0-1 Low Early ambulation 2 Moderate Order ONE of the following: *Sequential Compression Device (SCD) *Heparin 5000 units SQ BID 3-4 Higher Order ONE of the following medications: *Heparin 5000 units SQ TID *Enoxaparin/Lovenox 40 mg SQ daily (WT < 150 kg, CrCl > 30 mL/min) *Enoxaparin/Lovenox 30 mg SQ daily (WT < 150 kg, CrCl > 10-29 mL/min) *Enoxaparin/Lovenox 30 mg SQ BID (WT < 150 kg, CrCl > 30 mL/min) AND/OR *Sequential Compression Device (SCD) 5 or more Highest Order ONE of the following medications: *Heparin 5000 units SQ TID (Preferred with Epidurals) *Enoxaparin/Lovenox 40 mg SQ daily (WT < 150 kg, CrCl > 30 mL/min) *Enoxaparin/Lovenox 30 mg SQ daily (WT < 150 kg, CrCl > 10-29 mL/min) *Enoxaparin/Lovenox 30 mg SQ BID (WT < 150 kg, CrCl > 30 mL/min) AND *Sequential Compression Device (SCD) Assessment and Plan Assessment and Plan Acute on chronic respiratory failure most likely secondary to panic attacks/ anxiety -He is back on 2 L of oxygen. Clinically patient is clear to auscultation. On the day of admission he was also clear to auscultation. Chest x-ray reviewed showing atelectasis. -CTA was order due to acute changes and tachycardia. Patient refused CTA despite purpose of CTA ruled out pulmonary embolism. I educated patient extensively that pulmonary embolism can lead to if not treated. Patient continues to refuse despite offering him accommodations. -We will get a VQ scan. At the moment he is treated empirically with Lovenox. COPD -Patient was treated as a COPD exacerbation but on the day of admission and my clinical exam patient lungs are clear. His acute respiratory failure much likely due to anxiety/panic attack. Will do a burst of prednisone but otherwise albuterol as needed. DC Levaquin. Rupture of right eardrum secondary to trauma with Q-tip complicated with hearing loss -Patient does have some blood on his eardrum but no active bleeding. To follow- up with ENT as outpatient. Tachycardia -Patient had this on prior admission. May be secondary to albuterol versus anxiety. -Stable. Acute kidney injury Trip Yusuf MD Sep 25, 2017 18:02 Анна Lyn MD Sep 26, 2017 09:30
[2017-09-25] MEDS ORDERED: LORazepam 2 MG/ML VIAL IV PUSH PRN (18:30)
[2017-09-25] MEDS: methylPREDNISolone SOD SUCC 40 MG/1 ML VIAL IV PUSH SCH ×2 (19:10→23:34)
[2017-09-25] MEDS: RESP: IPRATROPIUM 0.5 MG/2.5 ML NEB NEB SCH (19:49)
[2017-09-25] MEDS: SODIUM CHLORIDE 0.9% FLUSH 10 ML FLUSH IV FLUSH SCH (20:59)
[2017-09-25] MEDS: CARVEDILOL 6.25 MG TAB PO SCH (20:59)
[2017-09-26 03:03] VITALS: BP 164/80; PULSE 117; RESP 19; TEMP 98.1; O2SAT 96
[2017-09-26] MEDS: RESP: IPRATROPIUM 0.5 MG/2.5 ML NEB NEB SCH ×3 (03:12→18:00)
[2017-09-26] MEDS: NEOMYCIN/POLYMYXIN/HYDROCORT OTIC SOLN 10 ML BTL RIGHT EAR SCH ×4 (03:25→18:00)
[2017-09-26 05:48] LABS: AUTOMATED NEUTROPHIL # 11.1 TH/MM3 (1.8-7.7); BASOPHIL % 0.1 % (0.0-2.0); HEMATOCRIT 41.7 % (39.0-51.0); HEMOGLOBIN 14.2 GM/DL (13.0-17.0); LYMPH % 6.7 % (9.0-44.0); LYMPHOCYTE # 0.8 TH/MM3 (1.0-4.8); MEAN CELL VOLUME 90.3 FL (80.0-100.0); MEAN CORPUSCULAR HEMOGLOBIN 30.7 PG (27.0-34.0); MEAN PLATELET VOLUME 9.1 FL (7.0-11.0); MONO % 0.8 % (0.0-8.0); MONOCYTE # 0.1 TH/MM3 (0-0.9); NEUT % 92.4 % (16.0-70.0); PLATELET COUNT 254 TH/MM3 (150-450); RED BLOOD COUNT 4.62 MIL/MM3 (4.50-5.90); RED CELL DISTRIBUTION WIDTH 14.2 % (11.6-17.2)
[2017-09-26 06:05] LABS: BICARBONATE 25.9 MEQ/L (21.0-32.0); CALCIUM 9.4 MG/DL (8.5-10.1); CREATININE 1.19 MG/DL (0.60-1.30)
[2017-09-26] MEDS: methylPREDNISolone SOD SUCC 40 MG/1 ML VIAL IV PUSH SCH (06:09)
[2017-09-26 07:28] VITALS: PULSE 106
[2017-09-26 08:00] VITALS: PULSE 105; PULSE 113
[2017-09-26] MEDS ORDERED: ENOXAPARIN SODIUM 80 MG/0.8 ML SYRINGE SQ SCH (08:00)
[2017-09-26 08:10] VITALS: BP 139/85; PULSE 110; RESP 24; TEMP 97.5; O2SAT 95
[2017-09-26] MEDS ORDERED: PANTOPRAZOLE SOD 40 MG DELAYED RELEASE TAB PO SCH (09:00)
[2017-09-26] MEDS: CARVEDILOL 6.25 MG TAB PO SCH (09:08)
[2017-09-26] MEDS: SODIUM CHLORIDE 0.9% FLUSH 10 ML FLUSH IV FLUSH SCH (09:09)
--- NOTE | 2017-09-26 09:26 | HHI.PR ---
Subjective Remarks Follow-up for acute on chronic respiratory failure with hypoxia secondary to COPD exacerbation versus panic attack Patient stated he feels short of breath. He is hyperventilating breathing through his purse lip. He is not in any respiratory distress on clinical exam. This seems to be more due to anxiety/panic attack. Patient refused CTA. He said that on his last admission they try to do CTA and they could not. He stated that he will not lay down at all. He stated that he feels like his mouth gets dry during the examination. I told patient that I think this is more due to anxiety and I can give medication to help with this. I told patient that CTA is better than the VQ scan and diagnosing PEs. I also explained what a PE is and what are the management and prognosis of PE. Despite knowing that patients can from a PE if not treated he continues to decline a CTA. Patient complained of right hearing loss. He stated that he put a Q-tip in his ear and then he had hearing loss. Denies any cough. Oxygenation now on 2 L. Discussed case with patient's nurse. Objective Vitals Vital Signs Date Time Temp Pulse Resp B/P (MAP) Pulse Ox O2 Delivery O2 Flow Rate FiO2 09/26/17 08:10 97.5 110 24 139/85 (103) 95 09/26/17 07:28 106 09/26/17 03:03 98.1 117 19 164/80 (108) 96 09/25/17 23:44 97.8 128 18 169/87 (114) 97 09/25/17 20:18 98.5 135 18 132/73 (92) 96 09/25/17 19:12 93 Nasal Cannula 3.00 09/25/17 17:29 97.3 121 24 151/73 (99) 96 09/25/17 17:01 113 15 97 Nasal Cannula 2.00 09/25/17 14:27 97 Nasal Cannula 3.00 09/25/17 13:37 95 Nasal Cannula 4.00 09/25/17 13:37 95 Nasal Cannula 4.00 09/25/17 13:37 95 Nasal Cannula 4.00 09/25/17 13:33 97.8 132 32 171/81 (111) 95 Nasal Cannula 4.00 09/25/17 13:32 140 32 93 Aerosol Mask I/O 2/7/18 2/03/0509/25/17 09/26/17 09/26/17 09/26/17 07:00 15:00 23:00 07:00 15:00 23:00 Intake Total 1250 ml Balance 1250 ml Intake IV Total 1250 ml Result Diagram: 09/26/17 0505 09/26/17 0505 Objective Remarks GENERAL: in NAD but his hyperventilating with purse lips improves when I ask patient to breath slowly and make him aware of this. CARDIOVASCULAR: Regular rate and rhythm without murmurs, gallops, or rubs. RESPIRATORY: Lung sounds are distant but breath sounds equal bilaterally. No accessory muscle use. No rhonchi or wheezing noted. HEENT: Right ear with blood on the eardrum. GASTROINTESTINAL: Abdomen soft, non-tender, nondistended. MUSCULOSKELETAL: No cyanosis, or edema. BACK: Nontender without obvious deformity. No CVA tenderness. Medications and IVs Current Medications Sodium Chloride (NS Flush) 2 ml UNSCH PRN IVF FLUSH AFTER USING IV ACCESS; Start 09/25/17 at 13:45; Stop 09/25/17 at 16:55; Status DC Methylprednisolone Sodium Succinate (SoluMEDROL INJ) 60 mg ONCE ONCE IV PUSH Last administered on 09/25/17at 14:31; Start 09/25/17 at 14:15; Stop 09/25/17 at 14: 19; Status DC Albuterol/ Ipratropium (Duoneb Neb) 1 ampule Q15M INH Last administered on at 14:25; Start 09/25/17 at 14:15; Stop 09/25/17 at 14:46; Status DC Sodium Chloride 1,000 ml @ 999 mls/hr BOLUS ONCE IV Last administered on at 14:31; Start 09/25/17 at 14:15; Stop 09/25/17 at 15:15; Status DC Ceftriaxone Sodium 1000 mg/ Sodium Chloride 100 ml @ 200 mls/hr ONCE ONCE IV Last administered on 09/25/17at 16:59; Start 09/25/17 at 14:30; Stop 09/25/17 at 14: 59; Status DC Azithromycin 500 mg/Sodium Chloride 250 ml @ 250 mls/hr ONCE ONCE IV Last administered on 09/25/17at 14:41; Start 09/25/17 at 14:30; Stop 09/25/17 at 15:29; Status DC Acetaminophen (Tylenol) 500 mg ONCE ONCE PO Last administered on 09/25/17 17: 00; Start 09/25/17 at 15:15; Stop 09/25/17 at 15:16; Status DC Neomycin/ Polymyxin/ Hydrocortisone (Cortisporin Otic Soln) 3 drop Q6HR RIGHT EAR Last administered on 09/26/17 06:08; Start 09/25/17 at 18:00 Sodium Chloride (NS Flush) 2 ml UNSCH PRN IV FLUSH FLUSH AFTER USING IV ACCESS ; Start 09/25/17 at 16:30 Sodium Chloride (NS Flush) 2 ml BID IV FLUSH Last administered on 09/26/17 09: 09; Start 09/25/17 at 21:00 Naloxone HCl (Narcan Inj) 0.4 mg UNSCH PRN IV PUSH SEE LABEL COMMENTS; Start at 16:30 Ipratropium Donovan (Atrovent Neb) 0.5 mg Q6HR NEB NEB Last administered on 09/26/17at 07:34; Start 09/25/17 at 22:00 Ipratropium [place] (Atrovent Neb) 0.5 mg Q2HR NEB PRN NEB WHEEZING Last administered on 09/25/17 23:03; Start 09/25/17 at 16:30 Methylprednisolone Sodium Succinate (SoluMEDROL INJ) 40 mg Q6HR IV PUSH Last administered on 09/26/17 06:09; Start 09/25/17 at 18:00 Levofloxacin/ Dextrose 150 ml @ 100 mls/hr Q24H IV Last administered on 19:10; Start 09/25/17 at 17:00 Pantoprazole Sodium (Protonix) 40 mg DAILY PO Last administered on 09/26/17 09: 08; Start 09/26/17 at 09:00 Carvedilol (Coreg) 6.25 mg Q12HR PO Last administered on 09/26/17 09:08; Start 09/25/17 at 21:00 Lorazepam (Ativan Inj) 0.5 mg UNSCH X1 PRN IV PUSH prior to CT ; Start 09/25/17 at 18:30; Stop 09/26/17 at 18:29 Enoxaparin Sodium (Lovenox Inj) 80 mg Q12H SQ Last administered on 09/26/17at 09: 07; Start 09/26/17 at 08:00 A/P Assessment and Plan Acute on chronic respiratory failure -Most likely secondary to panic attacks/anxiety. Lungs are clear to auscultation. -Patient was treated with Solu-Medrol, Atrovent, Levaquin. Ruptured right eardrum -Secondary for trauma from Q-tip. Since then patient has hearing loss from it. Patient to follow-up with ENT as outpatient. No active bleeding noted. Mild renal insufficiency -Resolved. DVT prophylaxis -On Lovenox. Discharge Planning Pending VQ scan for further recommendations. Анна Lyn MD Sep 26, 2017 09:26
[2017-09-26 11:45] VITALS: BP 140/79; PULSE 125; RESP 24; TEMP 97.7; O2SAT 94
--- NOTE | 2017-09-26 11:45 | RADRPT ---
EXAM DATE/TIME: 09/26/2017 10:59 [facility] COMPARISON: CHEST SINGLE AP, September 25, 2017, 13:45. INDICATIONS : Short of breath for 3 weeks. DOSE: 8.1 mCi Tc99m MAA IV 1.5 mCi Tc99m DTPA aerosol MEDICAL HISTORY : Diabetes mellitus type 2. Chronic obstructive pulmonary disease. SURGICAL HISTORY : Left shoulder surgery. ENCOUNTER: Initial ACUITY: 1 day PAIN SCALE: 1/10 LOCATION: Bilateral chest TECHNIQUE: Following five minutes of tidal breathing of DTPA aerosol, planar images of the lungs were performed in eight projections. The patient was then injected with MAA, and eight-view perfusion scan was perf ormed. FINDINGS: Patchy distribution of aerosolized radiotracer with central clumping suggesting some degree of COPD.. The perfusion lung scan demonstrates a homogenous pattern of uptake in both lungs. No segmental or s ubsegmental defects are seen. CONCLUSION: 1. Low probability scan for pulmonary embolus. 2. Radiotracer pattern on the ventilatory images characteristic of some degree of COPD. Eddie Barraza MD on September 26, 2017 at 11:42 Board Certified Radiologist. This report was verified electronically.
[2017-09-26] MEDS ORDERED: PROPRANOLOL HCL 20 MG TAB PO SCH (12:00)
[2017-09-26] MEDS ORDERED: FLUTICASONE PROPIONATE 50 MCG/ACT 16 GM NASAL SPRAY NASAL SCH (12:00)
[2017-09-26] MEDS ORDERED: ACETAMINOPHEN 325 MG TAB PO PRN (12:45)
[2017-09-26] MEDS ORDERED: AMOXICILLIN/CLAVULANATE K 875 MG TAB PO SCH (14:00)
[2017-09-26] MEDS ORDERED: PRED50 PO (15:31)
[2017-09-26] MEDS ORDERED: FLUT50SP NASAL (15:31)
[2017-09-26] MEDS ORDERED: PROP20TA3 PO (15:31)
[2017-09-26] MEDS ORDERED: AMOX875T2 PO (15:31)
--- NOTE | 2017-09-26 15:32 | HHI.DCPOC ---
Discharge Care Plan Diagnosis: (1) Anxiety (2) Tachycardia (3) COPD (chronic obstructive pulmonary disease) (4) Chronic respiratory failure Goals to Promote Your Health * To prevent worsening of your condition and complications * To maintain your health at the optimal level Directions to Meet Your Goals Take your medications as prescribed Follow your dietary instruction Follow activity as directed Keep your appointments as scheduled Take your immunizations and boosters as scheduled If your symptoms worsen call your PCP, if no PCP go to Urgent Care Center or Emergency Room Smoking is Dangerous to Your Health. Avoid second hand smoke Call the 24-hour hour crisis hotline for domestic abuse at Анна Lyn MD Sep 26, 2017 15:32
--- NOTE | 2017-09-26 20:24 | EKG ---
Date Performed: 09/25/2017 Time Performed: 13:57:28 PTAGE: 66 years EKG: SINUS TACHYCARDIA ABNORMAL RHYTHM ECG PREVIOUS TRACING : 05/01/2017 11.15 Since the prior tracing, there has been no significant barillas DOCTOR: Antonio Garay Interpretating Date/Time 09/26/2017 20:19:22
[2017-09-27] MEDS ORDERED: predniSONE 50 MG TAB PO SCH (09:00)
== END 2017-09-26 21:51 | disposition home or self-care (01) ==
LOC: NEPE 13:24 → NEDA 16:26 → NEPGCP 17:27
PROVIDERS: ADMIT Hospitalist; ATTEND Hospitalist
DX: J44.1 Chronic obstructive pulmonary disease with (acute) exacerbation (principal); J96.21 Acute and chronic respiratory failure with hypoxia; F41.0 Panic disorder [episodic paroxysmal anxiety]; I10 Essential (primary) hypertension; R00.0 Tachycardia, unspecified; H91.91 Unspecified hearing loss, right ear; J98.11 Atelectasis; N17.9 Acute kidney failure, unspecified; E11.9 Type 2 diabetes mellitus without complications; Z79.84 Long term (current) use of oral hypoglycemic drugs; Z99.81 Dependence on supplemental oxygen; Z87.891 Personal history of nicotine dependence
CPT/HCPCS: 71045; 78582; 80048; 80053; 82550; 82552; 83735; 83880; 84484; 85025; 85610; 85730; 93005; 94640; 94664; 96365; 96366; 96367; 96372; 96375; 96376; 97162; 99285; A9540; A9567; G0378; G8987; G8988; J0456; J0696; J1650; J1956; J2920; J2930; J7030; J7050; J7644

== ENCOUNTER 2017-11-27 02:36 | Inpatient (IN) | payer OTHER ==
[2017-11-27] VITALS (28 sets, daily range): BP systolic 115–223; BP diastolic 55–113; PULSE 81–120; RESP 12–21; TEMP 97.7–99.4; O2SAT 89–100
[~2017-11-27 02:36] MED LIST changes: +AMOX875T2 PO; +FLUT50SP NASAL; +PRED50 PO; +PROP20TA3 PO
[2017-11-27] MEDS ORDERED: ETOMIDATE 40 MG/20 ML VIAL ONE (02:45)
[2017-11-27] MEDS ORDERED: SODIUM CHLORIDE 0.9% FLUSH 10 ML FLUSH IVF PRN ×2 (02:45→03:00)
[2017-11-27] MEDS ORDERED: methylPREDNISolone SOD SUCC 125 MG/2 ML VIAL IV PUSH ONE (02:45)
[2017-11-27] MEDS ORDERED: SODIUM CHLOR 0.9% 1000 ML INJ 1,000 ML IV ONE (02:57)
[2017-11-27] MEDS ORDERED: ETOMIDATE 20 MG/10 ML VIAL IVP ONE (03:00)
[2017-11-27] MEDS ORDERED: SUCCINYLCHOLINE CHLORIDE 200 MG/10 ML VIAL IV PUSH ONE (03:00)
[2017-11-27] MEDS ORDERED: PROPOFOL 1000 MG/100 ML INJ 100 ML IV PRN ×2 (03:00→04:30)
[2017-11-27] MEDS ORDERED: PROPOFOL 1000 MG/100 ML INJ 100 ML ONE (03:13)
[2017-11-27] MEDS: RESP: ALBUTEROL 2.5 MG/IPRATROPIUM 0.5 MG NEB (SCH) INH ×6 (03:22→23:05)
--- NOTE | 2017-11-27 03:29 | RADRPT ---
EXAM DATE/TIME: 11/27/2017 02:45 [facility] COMPARISON: CHEST SINGLE AP, September 25, 2017, 13:45. INDICATIONS : Post intubation. MEDICAL HISTORY : Chronic obstructive pulmonary disease. SURGICAL HISTORY : None. ENCOUNTER: Initial ACUITY: 1 day PAIN SCORE: Non-responsive. LOCATION: Bilateral chest FINDINGS: A single view of the chest demonstrates the lungs to be symmetrically aerated without evidence of mas s, infiltrate or effusion. Endotracheal tube 6.4 cm from the kane. The cardiomediastinal contours are unremarkable. Osseous structures are intact. CONCLUSION: No acute disease. Zurdo Jackson MD on November 27, 2017 at 3:28 Board Certified Radiologist. This report was verified electronically.
[2017-11-27 03:36] LABS: AUTOMATED NEUTROPHIL # 7.5 TH/MM3 (1.8-7.7); BASOPHIL # 0.1 TH/MM3 (0-0.2); BASOPHIL % 0.6 % (0.0-2.0); EOSINOPHIL # 0.6 TH/MM3 (0-0.4); EOSINOPHIL % 4.9 % (0.0-4.0); HEMATOCRIT 46.5 % (39.0-51.0); HEMOGLOBIN 15.3 GM/DL (13.0-17.0); LYMPH % 28.6 % (9.0-44.0); LYMPHOCYTE # 3.7 TH/MM3 (1.0-4.8); MEAN CELL VOLUME 91.4 FL (80.0-100.0); MEAN CORPUSCULAR HEMOGLOBIN 30.1 PG (27.0-34.0); MEAN CORPUSCULAR HGB CONC 32.9 % (32.0-36.0); MEAN PLATELET VOLUME 9.7 FL (7.0-11.0); MONO % 8.7 % (0.0-8.0); MONOCYTE # 1.1 TH/MM3 (0-0.9); NEUT % 57.2 % (16.0-70.0); PLATELET COUNT 323 TH/MM3 (150-450); RED BLOOD COUNT 5.08 MIL/MM3 (4.50-5.90); RED CELL DISTRIBUTION WIDTH 14.4 % (11.6-17.2); WHITE BLOOD COUNT 13.1 TH/MM3 (4.0-11.0)
--- NOTE | 2017-11-27 03:38 | PD ---
HPI Chief Complaint: Respiratory Distress Time Seen by Provider: 02:39 Travel History International Travel<30 days: No Contact w/Intl Traveler<30days: No Traveled to known affect area: No History of Present Illness HPI The patient is a 67 year old male who presents to the [facility] emergency department with a history of shortness of breath that began sometime prior to arrival, unfortunately the patient is nonverbal on arrival. According to ambulance services the patient was short of breath on their arrival with wheezing. The patient was saturating in the 80s on 2 L nasal cannula O2. The patient was at home alone. The patient was placed on a nonrebreather mask briefly while getting him out of his apartment. The patient then became less alert. The patient seemed to have increased respiratory distress with shallow breathing, therefore the patient was bagged and brought into this facility. The patient reportedly has a history of COPD. The patient's blood sugar was noted to be 220 prior to arrival. According to ambulance services the patient denied having any chest pain. The patient on arrival has his eyes open, and is being bagged. His O2 saturation was noted to be 98-99%. The patient was continued on nasal cannula and observed. The patient was started on a nebulizer treatment and unfortunately desaturated again, therefore the patient was prepped for rapid sequence intubation. [facility] Past Medical History Narrative Medical The patient's past medical history is significant for according to the electronic medical record, diabetes mellitus, COPD on home oxygen, and hypertension. Arthritis: Yes Asthma: No Autoimmune Disease: No Blood Disorders: No Anxiety: No Depression: Yes Cancer: No Cardiovascular Problems: No COPD: Yes Diabetes: Yes Diminished Hearing: Yes ([facility]) Endocrine: Yes Genitourinary: No Immune Disorder: No Musculoskeletal: No Neurologic: No Psychiatric: No Reproductive: No Respiratory: Yes Immunizations Current: Yes Sickle Cell Disease: No Sleep Apnea: No Thyroid Disease: No Past Surgical History Narrative Surgical The patient's past surgical history is significant for left shoulder surgery. Abdominal Surgery: No Cardiac Surgery: No Ear Surgery: No Endocrine Surgery: No Eye Surgery: No Genitourinary Surgery: No Gynecologic Surgery: No Oral Surgery: No Thoracic Surgery: No Tonsillectomy: Yes Other Surgery: Yes Social History Alcohol Use: No Tobacco Use: No Substance Use: No Allergies-Medications (Allergen,Severity, Reaction): Coded Allergies: No Known Allergies (Unverified Allergy, Unknown, 09/25/17) Reported Meds & Prescriptions Reported Meds & Active Scripts Active Prednisone 50 Mg Tab 50 Mg PO DAILY Fluticasone Nasal [place] 50 Mcg/Act Naspr 1 [place] NASAL BID 50 mcg/spray Propranolol (Propranolol HCl) 20 Mg Tab 20 Mg PO Q12HR Amoxicillin-Clavulanate 875-125 mg Tab 875 Mg PO Q12H not for use in CrCl <30 mL/minute Coreg (Carvedilol) 6.25 Mg Tab 6.25 Mg PO Q12HR Ventolin Hfa 18 GM Inh (Albuterol Sulfate) 90 Mcg/Act Aer 2 Puff INH Q4-6H PRN Metformin (Metformin HCl) 500 Mg Tab 500 Mg PO BIDPC With meals Symbicort Inh (Budesonide/Formoterol Fumarate) 160-4.5 Mcg/Act Aero 1 Puff INH Q12HR 30 Days Nifedipine ER 24 HR (Nifedipine) 60 Mg Tab 60 Mg PO DAILY Review of Systems ROS Limitations: Unresponsive Cardiovascular: Positive: Dyspnea on exertion, No: Chest Pain or Discomfort Respiratory: Positive: Cough, Shortness of Breath Neurologic: No: Weakness Physical Exam Narrative General: The patient is a well-developed well-nourished male, initially on arrival with tachypnea, eyes open, however he was nonverbal. Head and Neck exam: Head is normocephalic atraumatic. Eyes: EOMI, pupils are equal round and reactive to light. Nose: Midline septum with pink mucous membranes Mouth: The patient has no upper dentition and poor lower dentition with multiple broken and decayed teeth in the lower jaw. Moist mucus membranes. Posterior oropharynx is not erythematous. No tonsillar hypertrophy. Uvula midline. Airway patent. Neck: No palpable lymphadenopathy. No nuchal rigidity. No thyromegaly. Cardiovascular: Sinus tachycardia in the 1 teens without murmurs, gallops, or rubs. No pulse deficit to the extremities on simultaneous auscultation and palpation of his radial artery. Lungs: Poor air movement bilaterally with soft inspiratory and expiratory wheezes. Diminished breath sounds in bilateral bases with paroxysmal abdominal breathing , no accessory muscle use noted. Abdomen: Soft, without tenderness to palpation in all 4 quadrants of the abdomen. No guarding, rebound, or rigidity. Normal bowel sounds are audible. No tenderness on palpation of McBurney's point. Extremities: No clubbing, cyanosis, or edema. 2+ pulses in all 4 extremities. No calf tenderness on palpation. Back: No costovertebral angle tenderness to palpation. Neurologic Exam: The patient appeared to have a decreased level of consciousness , blinking frequently with his eyes open, however otherwise unresponsive to stimulation. Skin Exam: No rash noted. Intact skin that is warm and dry. Data Data Last Documented VS Vital Signs Date Time Temp Pulse Resp B/P (MAP) Pulse Ox O2 Delivery O2 Flow Rate FiO2 11/27/17 04:00 116 16 122/59 (80) 99 Ventilator 60 Orders Orders Complete Blood Count With Diff (11/27/17 02:39) Comprehensive Metabolic Panel (11/27/17 02:39) B-Type Natriuretic Peptide (11/27/17 02:39) Act Partial Throm Time (Ptt) (11/27/17 02:39) Prothrombin Time / Inr (Pt) (11/27/17 02:39) Magnesium (Mg) (11/27/17 02:39) Ckmb (Isoenzyme) Profile (11/27/17 02:39) Troponin I (11/27/17 02:39) Urinalysis - C+S If Indicated (11/27/17 02:39) Iv Access Insert/Monitor (11/27/17 02:39) Electrocardiogram (11/27/17 02:39) Ecg Monitoring (11/27/17 02:39) Oximetry (11/27/17 02:39) Oxygen Administration (11/27/17 02:39) Chest, Single Ap (11/27/17 02:39) Sodium Chloride 0.9% Flush (Ns Flush) (11/27/17 02:45) Methylprednisolone So Succ Inj (Solumedr (11/27/17 02:45) Albuterol-Ipratropium Neb (Duoneb Neb) (11/27/17 02:45) Propofol 1000 Mg/100 Ml Inj (Diprivan 10 (11/27/17 03:00) Arterial Blood Gas (Abg) (11/27/17 02:57) Etomidate Inj (Amidate Inj) (11/27/17 03:00) Succinylcholine Inj (Quelicin Inj) (11/27/17 03:00) Sodium Chloride 0.9% Flush (Ns Flush) (11/27/17 03:00) Sodium Chlor 0.9% 1000 Ml Inj (Ns 1000 M (11/27/17 02:57) Restraints Non-Violent AYAD.Q3H (11/27/17 02:57) Karishma-Gastric Tube Insert/Mon (11/27/17 02:57) Urinary Catheter Insert/Apply (11/27/17 02:57) Etomidate Inj (Amidate Inj) (11/27/17 02:45) Propofol 1000 Mg/100 Ml Inj (Diprivan 10 (11/27/17 03:13) Admit Order (Ed Use Only) (11/27/17 04:03) Labs Laboratory Tests Test 11/27/17 02:50 11/27/17 03:05 11/27/17 04:00 White Blood Count 13.1 TH/MM3 Red Blood Count 5.08 MIL/MM3 Hemoglobin 15.3 GM/DL Hematocrit 46.5 % Mean Corpuscular Volume 91.4 FL Mean Corpuscular Hemoglobin 30.1 PG Mean Corpuscular Hemoglobin Concent 32.9 % Red Cell Distribution Width 14.4 % Platelet Count 323 TH/MM3 Mean Platelet Volume 9.7 FL Neutrophils (%) (Auto) 57.2 % Lymphocytes (%) (Auto) 28.6 % Monocytes (%) (Auto) 8.7 % Eosinophils (%) (Auto) 4.9 % Basophils (%) (Auto) 0.6 % Neutrophils # (Auto) 7.5 TH/MM3 Lymphocytes # (Auto) 3.7 TH/MM3 Monocytes # (Auto) 1.1 TH/MM3 Eosinophils # (Auto) 0.6 TH/MM3 Basophils # (Auto) 0.1 TH/MM3 CBC Comment DIFF FINAL Differential Comment Prothrombin Time 10.5 SEC Prothromb Time International Ratio 1.0 RATIO Activated Partial Thromboplast Time 27.6 SEC Blood Urea Nitrogen 20 MG/DL Creatinine 1.42 MG/DL Random Glucose 195 MG/DL Total Protein 7.8 GM/DL Albumin 3.5 GM/DL Calcium Level 8.8 MG/DL Magnesium Level 2.2 MG/DL Alkaline Phosphatase 106 U/L Aspartate Amino Transf (AST/SGOT) 30 U/L Alanine Aminotransferase (ALT/SGPT) 31 U/L Total Bilirubin 0.4 MG/DL Sodium Level 141 MEQ/L Potassium Level 4.6 MEQ/L Chloride Level 103 MEQ/L Carbon Dioxide Level 32.2 MEQ/L Anion Gap 6 MEQ/L Estimat Glomerular Filtration Rate 50 ML/MIN Total Creatine Kinase 57 U/L Troponin I LESS THAN 0.02 NG/ML B-Type Natriuretic Peptide 12 PG/ML Urine Color YELLOW Urine Turbidity CLEAR Urine pH 6.0 Urine Specific [place] 1.024 Urine Protein 30 mg/dL Urine Glucose (UA) NEG mg/dL Urine Ketones NEG mg/dL Urine Occult Blood NEG Urine Nitrite NEG Urine Bilirubin NEG Urine Urobilinogen LESS THAN 2.0 MG/DL Urine Leukocyte Esterase NEG Urine RBC 1 /hpf Urine WBC 1 /hpf Urine Squamous Epithelial Cells <1 /hpf Urine Mucus MANY /lpf Microscopic Urinalysis Comment CULT NOT INDICATED Blood Gas Puncture Site RT RADIAL Blood Gas Patient Temperature 98.6 Blood Gas HCO3 31 mmol/L Blood Gas Base Excess 3.0 mmol/L Blood Gas Oxygen Saturation 95 % Arterial Blood pH 7.20 Arterial Blood Partial Pressure CO2 81 mmHg Arterial Blood Partial Pressure O2 107 mmHG Arterial Blood Oxygen Content 20.1 Vol % Arterial Blood Carboxyhemoglobin 0.9 % Arterial Blood Methemoglobin 0.9 % Blood Gas Hemoglobin 14.9 G/DL Oxygen Delivery Device VENTILATOR Blood Gas Ventilator Setting Blood Gas Inspired Oxygen 70 % MDM Medical Decision Making Medical Screen Exam Complete: Yes Emergency Medical Condition: Yes Medical Record Reviewed: Yes Interpretation(s) Last Impressions Chest X-Ray 11/27/17 0239 Signed Impressions: Service Date/Time: Monday, November 27, 2017 02:45 - CONCLUSION: No acute disease. Zurdo Jackson MD Differential Diagnosis COPD exacerbation, versus congestive heart failure, versus pulmonary embolism, versus acute coronary syndrome Narrative Course During the course of the patient's emergency department visit,the patient was placed on a athletic monitor with oximetry and frequent blood pressure monitoring. The patient had IV access obtained and blood work sent for analysis. The patient was started on a DuoNeb, however he continued to have a decreased level of consciousness and then his O2 saturation began to drop again. The patient was placed on high flow nasal cannula oxygen for preoxygenation and bags. The patient was prepped for rapid sequence intubation. The patient had an EKG done on arrival that shows a sinus tachycardia with occasional supraventricular premature complexes heart rate of 116, wavy baseline which could be affecting interpretation, however no ST segment elevation is noted. The patient was initially provided a DuoNeb 3, etomidate 20 mg IV, succinylcholine 100 mg IV in preparation for intubation with an 8 size endotracheal tube which was done by me. The patient's laboratory studies were reviewed and remarkable for: 11/27/17 02:50 Total Protein 7.8, Albumin 3.5, Calcium Level 8.8, Magnesium Level 2.2, Alkaline Phosphatase 106, Aspartate Amino Transf (AST/SGOT) 30, Alanine Aminotransferase (ALT/SGPT) 31, Total Bilirubin 0.4, cardiac enzymes within normal limits, BNP is 12, PT PTT within normal limits, urinalysis is unremarkable Radiology studies were reviewed and remarkable for a chest x-ray shows no acute abnormality. The patient was admitted to the hospital in critical condition and sent to a bed under the care of the rn first assist service. Critical Care Narrative Aggregate critical care time was 37 minutes. Time to perform other separately billable procedures was not included in the critical care time. My time did not include minutes spent treating any other patients simultaneously or on activities that did not directly contribute to the patient's treatment. The services I provided to this patient were to treat and/or prevent clinically significant deterioration that could result in: - I provided critical care services requiring my management, as noted below: Chart data review, documentation time, medication orders and management, vital sign assessments/reviewing monitor data, ordering and reviewing lab tests, ordering and interpreting/reviewing x-rays and diagnostic studies, care of the patient and discussion of the patient with the admitting physicians. Procedures Procedure Narrative The patient was put in optimal position for the procedure. Rapid sequence intubation was initiated by me using 20 milligrams of etomidate IV and 100 milligrams of succinylcholine IV. The patient was intubated with a 8 cuffed endotracheal tube using a [place] 4 blade laryngoscope. The patient's cords were easily visualized. Tube placement was confirmed by visualization of the tube and balloon passing through the cords, capnometry and subsequent chest x-ray. Breath sounds were equal and well aerated bilaterally postintubation. No breath sounds over stomach. Patient tolerated procedure well. Physician Communication Physician Communication The patient's case including history, pertinent physical examination findings, and laboratory studies were discussed with Dr. Rust. It was agreed that the patient would be admitted to the rn first assist service. Diagnosis Primary Impression: Respiratory failure Qualified Codes: J96.01 - Acute respiratory failure with hypoxia; J96.02 - Acute respiratory failure with hypercapnia Additional Impression: COPD with acute exacerbation Admitting Information Admitting Physician Requests: Admit Karuna Barajas MD Nov 27, 2017 03:38
[2017-11-27 03:42] LABS: BILIRUBIN, URINE NEG (NEG); BLOOD, URINE NEG (NEG); GLUCOSE,URINE NEG (NEG); KETONE, URINE NEG (NEG); MUCUS URINE MANY /lpf (OCC); NITRITE,URINE NEG (NEG); SQUAMOUS EPITHELIAL CELL URINE <1 /hpf (0-5); URINE COLOR YELLOW (YELLW/STRAW); URINE LEUKOCYTE ESTERASE NEG (NEG)
[2017-11-27 03:50] LABS: PROTHROMBIN TIME - PATIENT 10.5 SEC (9.8-11.6)
[2017-11-27 04:02] LABS: ALBUMIN 3.5 GM/DL (3.4-5.0); ALKALINE PHOSPHATASE 106 U/L (45-117); ALT (GPT) 31 U/L (12-78); AST (GOT) 30 U/L (15-37); BICARBONATE 32.2 MEQ/L (21.0-32.0); BLOOD UREA NITROGEN 20 MG/DL (7-18); CALCIUM 8.8 MG/DL (8.5-10.1); CHLORIDE 103 MEQ/L (98-107); CREATININE 1.42 MG/DL (0.60-1.30); GLOMERULAR FILTRATION RATE 50 ML/MIN (>89); GLUCOSE,RANDOM 195 MG/DL (74-106); MAGNESIUM 2.2 MG/DL (1.5-2.5); SODIUM (NA) 141 MEQ/L (136-145); TOTAL BILIRUBIN ADULT 0.4 MG/DL (0.2-1.0); TOTAL PROTEIN 7.8 GM/DL (6.4-8.2); TROPONIN I LESS THAN 0.02 NG/ML (0.02-0.05)
[2017-11-27] MEDS ORDERED: ACETAMINOPHEN 325 MG TAB PO PRN (04:30)
[2017-11-27] MEDS ORDERED: LORazepam 2 MG/ML VIAL IV PUSH PRN (04:30)
[2017-11-27] MEDS ORDERED: CHLORHEXIDINE GLUCONATE 2 % 1 PACK (2 CLOTHS) TOP PRN (04:30)
[2017-11-27] MEDS: SODIUM CHLOR 0.9% 1000 ML INJ 1,000 ML IV SCH ×2 (04:30→18:54)
[2017-11-27] MEDS ORDERED: DEXTROSE 50% IN WATER 50 ML VIAL(D50) IV PUSH PRN ×2 (04:30→10:30)
[2017-11-27] MEDS ORDERED: MAGNESIUM HYDROXIDE SUSP 30 ML CUP PO PRN (04:30)
[2017-11-27] MEDS ORDERED: ONDANSETRON HCL 4 MG/2 ML VIAL IV PUSH PRN (04:30)
[2017-11-27] MEDS ORDERED: GLUCAGON 1 MG/ML VIAL OTHER PRN ×2 (04:30→10:30)
[2017-11-27] MEDS ORDERED: BISACODYL 10 MG SUPP RECTAL PRN (04:30)
[2017-11-27] MEDS ORDERED: SODIUM CHLORIDE 0.9% FLUSH 10 ML FLUSH IV FLUSH PRN (04:30)
[2017-11-27] MEDS ORDERED: MISCELLANEOUS NURSING INFORMATION XX SCH (04:30)
[2017-11-27] MEDS ORDERED: SENNOSIDES 8.6 MG TAB PO PRN (04:30)
[2017-11-27] MEDS ORDERED: RESP: ALBUTEROL 2.5 MG/IPRATROPIUM 0.5 MG NEB (PRN) INH (04:30)
[2017-11-27] MEDS ORDERED: LACTULOSE SYRUP 20 GM/30 ML CUP PO PRN (04:30)
--- NOTE | 2017-11-27 04:32 | HHI.HP ---
HPI Service Critical Care Medicine Primary Care Physician [facility] Admission Diagnosis Respiratory Failure, Copd Exacerbation Diagnosis: Travel History International Travel<30 Days: No Contact w/Intl Traveler <30 Da: No Traveled to Known Affected Are: No History of Present Illness 67 year old male who presents with a history of shortness of breath that began sometime prior to arrival. According to chart review the patient was short of breath on EMS arrival with wheezing. The patient was saturating in the 80s on 2 L nasal cannula O2. The patient was at home alone. The patient was placed on a nonrebreather mask briefly while getting him out of his apartment. The patient then became less alert. According to ambulance services the patient denied having any chest pain. The patient arrived to emergency department in severe respiratory failure requiring emergent intubation by ED attending. Review of Systems ROS Unable to obtain patient sedated and intubated Past Family Social History Allergies: Coded Allergies: No Known Allergies (Unverified Allergy, Unknown, 09/25/17) Past Medical History Diabetes mellitus COPD on home O2 Hypertension Past Surgical History Left shoulder / arm surgery Reported Medications Reported Meds & Active Scripts Active Prednisone 50 Mg Tab 50 Mg PO DAILY Fluticasone Nasal [place] 50 Mcg/Act Naspr 1 [place] NASAL BID 50 mcg/spray Propranolol (Propranolol HCl) 20 Mg Tab 20 Mg PO Q12HR Amoxicillin-Clavulanate 875-125 mg Tab 875 Mg PO Q12H not for use in CrCl <30 mL/minute Coreg (Carvedilol) 6.25 Mg Tab 6.25 Mg PO Q12HR Ventolin Hfa 18 GM Inh (Albuterol Sulfate) 90 Mcg/Act Aer 2 Puff INH Q4-6H PRN Metformin (Metformin HCl) 500 Mg Tab 500 Mg PO BIDPC With meals Symbicort Inh (Budesonide/Formoterol Fumarate) 160-4.5 Mcg/Act Aero 1 Puff INH Q12HR 30 Days Nifedipine ER 24 HR (Nifedipine) 60 Mg Tab 60 Mg PO DAILY Active Ordered Medications Current Medications Medications (Trade) Dose Ordered Sig/Justina Route PRN Reason Start Time Stop Time Status Last Admin Dose Admin Sodium Chloride (NS Flush) 2 ml UNSCH PRN IVF FLUSH AFTER USING IV ACCESS 11/27/17 02:45 Propofol 100 ml @ 0 mls/hr TITRATE PRN IV SEDATION 11/27/17 03:00 11/27/17 03:31 Sodium Chloride (NS Flush) 2 ml UNSCH PRN IVF FLUSH AFTER USING IV ACCESS 11/27/17 03:00 Sodium Chloride 1,000 ml @ 125 mls/hr Q8H ONCE IV 11/27/17 02:57 11/27/17 10:56 Amoxicillin/ Clavulanate Potassium (Augmentin) 875 mg Q12H PO 11/27/17 04:30 UNV Budesonide/ Formoterol Fumarate (Symbicort 160-4.5 Mcg Inh) 1 puff Q12HR INH 11/27/17 09:00 UNV Carvedilol (Coreg) 6.25 mg Q12HR PO 11/27/17 09:00 UNV Propranolol HCl (Inderal) 20 mg Q12HR PO 11/27/17 09:00 UNV Sodium Chloride 1,000 ml @ 84 mls/hr [id number] IV 11/27/17 04:25 UNV Sodium Chloride (NS Flush) 2 ml UNSCH PRN IV FLUSH FLUSH AFTER USING IV ACCESS 11/27/17 04:30 UNV Sodium Chloride (NS Flush) 2 ml BID IV FLUSH 11/27/17 09:00 UNV Acetaminophen (Tylenol) 650 mg Q6H PRN PO PAIN 1-5 AND/OR FEVER >101F 11/27/17 04:30 UNV Morphine Sulfate (Morphine Inj) 2 mg Q2H PRN IV PUSH PAIN SCALE 6 TO 10 11/27/17 04:30 UNV Famotidine (Pepcid Inj) 20 mg Q12HR IV PUSH 11/27/17 09:00 UNV Lorazepam (Ativan Inj) 1 mg Q1H PRN IV PUSH Agitation/Sedation 11/27/17 04:30 UNV Artificial Tears (Tears Naturale Opth Soln) 1 drop TID EACH EYE 11/27/17 09:00 UNV Ondansetron HCl (Zofran Inj) 4 mg Q6H PRN IV PUSH NAUSEA OR VOMITING 11/27/17 04:30 UNV Albuterol/ Ipratropium (Duoneb Neb) 1 ampule Q4HR NEB INH 11/27/17 08:00 UNV Albuterol/ Ipratropium (Duoneb Neb) 1 ampule Q2HR NEB PRN INH WHEEZING 11/27/17 04:30 UNV Enoxaparin Sodium (Lovenox Inj) 40 mg Q24H SQ 11/27/17 04:30 UNV Miscellaneous Information 1 Q361D XX 11/27/17 04:30 UNV Chlorhexidine Gluconate (Chlorhexidine 2% Cloth) 3 pack Taper DAILY@04 TOP 11/28/17 04:00 11/24/18 03:59 UNV Chlorhexidine Gluconate (Chlorhexidine 2% Cloth) 3 pack UNSCH PRN TOP HYGIENIC CARE 11/27/17 04:30 UNV Senna/Docusate Sodium (Ashley-Colace) 1 tab BID PO 11/27/17 09:00 UNV Chlorhexidine Gluconate (Peridex 0.12% Liq) 15 ml BID@08,20 MT 11/27/17 08:00 UNV Family History none that he knows of havent seen my family in 30yrs Social History Quit smoking about 3-4 years ago No history of alcohol or illicit drug abuse Lives by himself, still driving Physical Exam Vital Signs Vital Signs Date Time Temp Pulse Resp B/P (MAP) Pulse Ox O2 Delivery O2 Flow Rate FiO2 11/27/17 04:15 98 70 11/27/17 03:33 114 14 186/87 (120) 97 Ventilator 11/27/17 02:55 99 70 11/27/17 02:52 12 100 11/27/17 02:51 100 Ventilator 11/27/17 02:38 110 21 223/113 (149) 89 Physical Exam GENERAL: Well-nourished, well-developed patient. Sedated and intubated SKIN: Warm and dry. HEAD: Normocephalic. EYES: No scleral icterus. No injection or drainage. NECK: Supple, trachea midline. No JVD or lymphadenopathy. CARDIOVASCULAR: Regular rate and rhythm without murmurs, gallops, or rubs. RESPIRATORY: Breath sounds equal bilaterally. No accessory muscle use. Bilateral occasional fine rhonchi and wheezes GASTROINTESTINAL: Abdomen soft, non-tender, nondistended. MUSCULOSKELETAL: No cyanosis, or edema. BACK: Nontender without obvious deformity. NEURO EXAM: Mental Status: The patient is sedated and intubated Laboratory Laboratory Tests Test 11/27/17 02:50 11/27/17 03:05 11/27/17 04:00 White Blood Count 13.1 Red Blood Count 5.08 Hemoglobin 15.3 Hematocrit 46.5 Mean Corpuscular Volume 91.4 Mean Corpuscular Hemoglobin 30.1 Mean Corpuscular Hemoglobin Concent 32.9 Red Cell Distribution Width 14.4 Platelet Count 323 Mean Platelet Volume 9.7 Neutrophils (%) (Auto) 57.2 Lymphocytes (%) (Auto) 28.6 Monocytes (%) (Auto) 8.7 Eosinophils (%) (Auto) 4.9 Basophils (%) (Auto) 0.6 Neutrophils # (Auto) 7.5 Lymphocytes # (Auto) 3.7 Monocytes # (Auto) 1.1 Eosinophils # (Auto) 0.6 Basophils # (Auto) 0.1 CBC Comment DIFF FINAL Differential Comment Prothrombin Time 10.5 Prothromb Time International Ratio 1.0 Activated Partial Thromboplast Time 27.6 Blood Urea Nitrogen 20 Creatinine 1.42 Random Glucose 195 Total Protein 7.8 Albumin 3.5 Calcium Level 8.8 Magnesium Level 2.2 Alkaline Phosphatase 106 Aspartate Amino Transf (AST/SGOT) 30 Alanine Aminotransferase (ALT/SGPT) 31 Total Bilirubin 0.4 Sodium Level 141 Potassium Level 4.6 Chloride Level 103 Carbon Dioxide Level 32.2 Anion Gap 6 Estimat Glomerular Filtration Rate 50 Total Creatine Kinase 57 Troponin I LESS THAN 0.02 B-Type Natriuretic Peptide 12 Urine Color YELLOW Urine Turbidity CLEAR Urine pH 6.0 Urine Specific [place] 1.024 Urine Protein 30 Urine Glucose (UA) NEG Urine Ketones NEG Urine Occult Blood NEG Urine Nitrite NEG Urine Bilirubin NEG Urine Urobilinogen LESS THAN 2.0 Urine Leukocyte Esterase NEG Urine RBC 1 Urine WBC 1 Urine Squamous Epithelial Cells <1 Urine Mucus MANY Microscopic Urinalysis Comment CULT NOT INDICATED Blood Gas Puncture Site RT RADIAL Blood Gas Patient Temperature 98.6 Blood Gas HCO3 31 Blood Gas Base Excess 3.0 Blood Gas Oxygen Saturation 95 Arterial Blood pH 7.20 Arterial Blood Partial Pressure CO2 81 Arterial Blood Partial Pressure O2 107 Arterial Blood Oxygen Content 20.1 Arterial Blood Carboxyhemoglobin 0.9 Arterial Blood Methemoglobin 0.9 Blood Gas Hemoglobin 14.9 Oxygen Delivery Device VENTILATOR Blood Gas Ventilator Setting Blood Gas Inspired Oxygen 70 Result Diagram: 11/27/1724911/27/17249 Imaging Last 24 hours Impressions Chest X-Ray 11/27/17 0239 Signed Impressions: Service Date/Time: Monday, November 27, 2017 02:45 - CONCLUSION: No acute disease. MD Zion Solis VTE Risk Assessment Caprini VTE Risk Assessment: Mod/High Risk (score >= 2) Caprini Risk Assessment Model Point Value = 1 Point Value = 2 Point Value = 3 Point Value = 5 Age 41-60 Minor surgery BMI > 25 kg/m2 Swollen legs Varicose veins or History of unexplained or recurrent spontaneous Oral contraceptives or hormone replacement Sepsis (< 1 month) Serious lung disease, including pneumonia (< 1 month) Abnormal pulmonary function Acute myocardial infarction Congestive heart failure (< 1 month) History of inflammatory bowel disease Medical patient at bed rest Age 61-74 Arthroscopic surgery Major open surgery (> 45 min) Laparoscopic surgery (> 45 min) Malignancy Confined to bed (> 72 hours) Immobilizing plaster cast Central venous access Age >= 75 History of VTE Family history of VTE Factor V Leiden Prothrombin [id number] Lupus anticoagulant Anticardiolipin antibodies Elevated serum homocysteine Heparin-induced thrombocytopenia Other congenital or acquired thrombophilia Stroke (< 1 month) Elective arthroplasty Hip, pelvis, or leg fracture Acute spinal cord injury (< 1 month) Prophylaxis Regimen Total Risk Factor Score Risk Level Prophylaxis Regimen 0-1 Low Early ambulation 2 Moderate Order ONE of the following: *Sequential Compression Device (SCD) *Heparin 5000 units SQ BID 3-4 Higher Order ONE of the following medications: *Heparin 5000 units SQ TID *Enoxaparin/Lovenox 40 mg SQ daily (WT < 150 kg, CrCl > 30 mL/min) *Enoxaparin/Lovenox 30 mg SQ daily (WT < 150 kg, CrCl > 10-29 mL/min) *Enoxaparin/Lovenox 30 mg SQ BID (WT < 150 kg, CrCl > 30 mL/min) AND/OR *Sequential Compression Device (SCD) 5 or more Highest Order ONE of the following medications: *Heparin 5000 units SQ TID (Preferred with Epidurals) *Enoxaparin/Lovenox 40 mg SQ daily (WT < 150 kg, CrCl > 30 mL/min) *Enoxaparin/Lovenox 30 mg SQ daily (WT < 150 kg, CrCl > 10-29 mL/min) *Enoxaparin/Lovenox 30 mg SQ BID (WT < 150 kg, CrCl > 30 mL/min) AND *Sequential Compression Device (SCD) Assessment and Plan Assessment and Plan Respiratory failure COPD exacerbation -DuoNeb scheduled and as needed -IV steroid -Empiric antibiotics -Sputum culture -Urine antigen -Mechanical ventilation -Vent bundle -CXR ABG daily Diabetes mellitus -Insulin sliding scale Hypertension -Carvedilol -Propranolol DVT GI prophylaxis -Renzo's and SCDs -Lovenox -Pepcid Critical Care: The total critical care time was 35 minutes. Time to perform other separately billable procedures was not included in the critical care time. Juan Rust MD Nov 27, 2017 4:32 am
[2017-11-27] MEDS ORDERED: MORPHINE SULFATE 2 MG/ML SYRINGE IV PRN (05:00)
[2017-11-27] MEDS: cefTRIAXone INJ 2,000 MG in SODIUM CHLORIDE 0.9% INJ 100 ML IV SCH (05:41)
[2017-11-27] MEDS: methylPREDNISolone SOD SUCC 40 MG/1 ML VIAL IV PUSH SCH ×4 (06:00→23:23)
[2017-11-27] MEDS ORDERED: AMOXICILLIN/CLAVULANATE K 875 MG TAB PO SCH (06:00)
[2017-11-27] MEDS ORDERED: INSULIN ASPART SUPPLEMENTAL SCALE SQ SCH (08:00)
[2017-11-27] MEDS: CHLORHEXIDINE 0.12% (ORAL KIT) 15 ML CUP MT SCH ×2 (08:00→20:00)
[2017-11-27] MEDS: CARVEDILOL 6.25 MG TAB PO SCH ×2 (08:01→20:27)
[2017-11-27] MEDS: ARTIFICIAL TEARS OPTH SOLN 15 ML BTL EACH EYE SCH ×3 (08:02→18:00)
[2017-11-27] MEDS: PROPRANOLOL HCL 20 MG TAB PO SCH ×2 (08:02→20:27)
[2017-11-27] MEDS: FAMOTIDINE 20 MG/2 ML VIAL IV PUSH SCH ×2 (08:02→20:27)
[2017-11-27] MEDS: SODIUM CHLORIDE 0.9% FLUSH 10 ML FLUSH IV FLUSH SCH ×2 (08:02→20:27)
[2017-11-27] MEDS: DOCUSATE SODIUM 50 MG/SENNA 8.6 MG TAB PO SCH ×2 (08:02→20:27)
[2017-11-27] MEDS ORDERED: BUDESONIDE-FORMOTEROL 160/4.5 MCG INHALER INH SCH (09:00)
[2017-11-27] MEDS: INSULIN NovoLIN REGULAR SUPPLEMENTAL SCALE SQ SCH ×3 (12:28→23:22)
[2017-11-27 13:02] LABS: AUTOMATED NEUTROPHIL # 11.3 TH/MM3 (1.8-7.7); BASOPHIL % 0.1 % (0.0-2.0); EOSINOPHIL % 0.1 % (0.0-4.0); HEMATOCRIT 43.1 % (39.0-51.0); HEMOGLOBIN 14.5 GM/DL (13.0-17.0); LYMPH % 9.2 % (9.0-44.0); LYMPHOCYTE # 1.2 TH/MM3 (1.0-4.8); MEAN CELL VOLUME 90.3 FL (80.0-100.0); MEAN CORPUSCULAR HEMOGLOBIN 30.5 PG (27.0-34.0); MEAN CORPUSCULAR HGB CONC 33.8 % (32.0-36.0); MEAN PLATELET VOLUME 9.5 FL (7.0-11.0); MONO % 3.4 % (0.0-8.0); MONOCYTE # 0.4 TH/MM3 (0-0.9); NEUT % 87.2 % (16.0-70.0); PLATELET COUNT 188 TH/MM3 (150-450); RED BLOOD COUNT 4.77 MIL/MM3 (4.50-5.90); RED CELL DISTRIBUTION WIDTH 14.4 % (11.6-17.2)
[2017-11-27 13:25] LABS: BICARBONATE 30.5 MEQ/L (21.0-32.0); CALCIUM 9.1 MG/DL (8.5-10.1); CREATININE 1.28 MG/DL (0.60-1.30)
[2017-11-27] MEDS: BUDESONIDE-FORMOTEROL 160/4.5 MCG INHALER INH SCH ×2 (20:27→20:41)
--- NOTE | 2017-11-27 21:17 | EKG ---
Date Performed: 11/27/2017 Time Performed: 03:03:25 PTAGE: 67 years EKG: SINUS TACHYCARDIA WITH OCCASIONAL SUPRAVENTRICULAR PREMATURE COMPLEXES ABNORMAL RHYTHM ECG INTERPRETATION BASED ON A DEFAULT AGE OF 40 YEARS PREVIOUS TRACING : 09/25/2017 13.57 Since the previous tracing, no significant change not ed DOCTOR: Dennis Mtz Interpretating Date/Time 11/27/2017 21:15:34
[2017-11-28] VITALS (12 sets, daily range): BP systolic 138–164; BP diastolic 62–81; PULSE 99–122; RESP 15–20; TEMP 95.4–98.8; O2SAT 89–100
[2017-11-28] MEDS: RESP: ALBUTEROL 2.5 MG/IPRATROPIUM 0.5 MG NEB (SCH) INH ×5 (03:11→21:01)
[2017-11-28] MEDS: CHLORHEXIDINE GLUCONATE 2 % 1 PACK (2 CLOTHS) TOP SCH (04:00)
[2017-11-28 04:45] LABS: AUTOMATED NEUTROPHIL # 15.6 TH/MM3 (1.8-7.7); BASOPHIL % 0.1 % (0.0-2.0); HEMATOCRIT 37.7 % (39.0-51.0); HEMOGLOBIN 13.1 GM/DL (13.0-17.0); LYMPH % 5.1 % (9.0-44.0); LYMPHOCYTE # 0.9 TH/MM3 (1.0-4.8); MEAN CELL VOLUME 88.5 FL (80.0-100.0); MEAN CORPUSCULAR HEMOGLOBIN 30.8 PG (27.0-34.0); MEAN CORPUSCULAR HGB CONC 34.8 % (32.0-36.0); MEAN PLATELET VOLUME 9.2 FL (7.0-11.0); MONOCYTE # 0.3 TH/MM3 (0-0.9); NEUT % 92.8 % (16.0-70.0); PLATELET COUNT 199 TH/MM3 (150-450); RED BLOOD COUNT 4.26 MIL/MM3 (4.50-5.90); RED CELL DISTRIBUTION WIDTH 14.2 % (11.6-17.2); WHITE BLOOD COUNT 16.8 TH/MM3 (4.0-11.0)
--- NOTE | 2017-11-28 04:52 | RADRPT ---
EXAM DATE/TIME: 11/28/2017 03:21 [place] COMPARISON: CHEST SINGLE AP, November 27, 2017, 2:45. INDICATIONS : Shortness of breath, possible pulmonary disease. MEDICAL HISTORY : Chronic obstructive pulmonary disease. SURGICAL HISTORY : None. ENCOUNTER: Subsequent ACUITY: 2 days PAIN SCORE: Non-responsive. LOCATION: Bilateral chest FINDINGS: A single view of the chest demonstrates the lungs to be symmetrically aerated without evidence of mas s, infiltrate or effusion. The cardiomediastinal contours are unremarkable. Osseous structures are intact. CONCLUSION: No acute disease. Zurdo Jackson MD on November 28, 2017 at 4:50 Board Certified Radiologist. This report was verified electronically.
[2017-11-28 04:55] LABS: INTERNATIONAL NORMALIZED RATIO 1.1 RATIO; PROTHROMBIN TIME - PATIENT 10.7 SEC (9.8-11.6)
[2017-11-28 05:13] LABS: ALBUMIN 3.3 GM/DL (3.4-5.0); ALT (GPT) 23 U/L (12-78); AST (GOT) 29 U/L (15-37); BICARBONATE 31.6 MEQ/L (21.0-32.0); BLOOD UREA NITROGEN 19 MG/DL (7-18); CALCIUM 9.2 MG/DL (8.5-10.1); CHLORIDE 105 MEQ/L (98-107); CREATININE 1.28 MG/DL (0.60-1.30); GLOMERULAR FILTRATION RATE 56 ML/MIN (>89); GLUCOSE,RANDOM 171 MG/DL (74-106); PHOSPHORUS 1.6 MG/DL (2.5-4.9); SODIUM (NA) 143 MEQ/L (136-145)
[2017-11-28 05:15] LABS: ALKALINE PHOSPHATASE 79 U/L (45-117); TOTAL BILIRUBIN ADULT 0.4 MG/DL (0.2-1.0); TOTAL PROTEIN 6.6 GM/DL (6.4-8.2)
[2017-11-28] MEDS: cefTRIAXone INJ 2,000 MG in SODIUM CHLORIDE 0.9% INJ 100 ML IV SCH (05:38)
[2017-11-28] MEDS: AZITHROMYCIN INJ 500 MG in SODIUM CHLOR 0.9% 250 ML INJ 250 ML IV SCH ×2 (05:38→05:42)
[2017-11-28] MEDS: ENOXAPARIN SODIUM 40 MG/0.4 ML SYRINGE SQ SCH (05:39)
[2017-11-28] MEDS: methylPREDNISolone SOD SUCC 40 MG/1 ML VIAL IV PUSH SCH (05:40)
[2017-11-28] MEDS: SODIUM CHLOR 0.9% 1000 ML INJ 1,000 ML IV SCH (05:41)
[2017-11-28] MEDS: INSULIN NovoLIN REGULAR SUPPLEMENTAL SCALE SQ SCH ×5 (06:04→20:02)
[2017-11-28] MEDS: CHLORHEXIDINE 0.12% (ORAL KIT) 15 ML CUP MT SCH ×2 (08:00→20:00)
[2017-11-28] MEDS: SODIUM CHLORIDE 0.9% FLUSH 10 ML FLUSH IV FLUSH SCH ×2 (09:00→20:02)
[2017-11-28] MEDS ORDERED: FAMOTIDINE 20 MG TAB PO SCH (09:00)
[2017-11-28] MEDS: ARTIFICIAL TEARS OPTH SOLN 15 ML BTL EACH EYE SCH ×3 (09:00→17:16)
--- NOTE | 2017-11-28 09:24 | HHI.PR ---
Subjective Remarks Follow-up COPD and respiratory failure. States he is doing better has not been out of bed. Has poor functional capacity uses 4 L nasal cannula at home. Discussed with nursing Objective Vitals Vital Signs Date Time Temp Pulse Resp B/P (MAP) Pulse Ox O2 Delivery O2 Flow Rate FiO2 11/28/17 07:41 99 Nasal Cannula 4.00 11/28/17 06:00 102 11/28/17 04:00 97.9 100 18 145/64 (91) 100 11/28/17 04:00 100 11/28/17 02:00 104 11/28/17 00:20 96 Nasal Cannula 4.00 11/28/17 00:00 104 11/28/17 00:00 97.9 104 15 138/62 (87) 96 11/27/17 23:53 97 35 11/27/17 22:00 109 11/27/17 20:00 97.7 115 16 153/73 (99) 98 11/27/17 20:00 115 11/27/17 19:58 100 Nasal Cannula 4.00 11/27/17 18:00 120 11/27/17 16:00 98.4 116 18 149/70 (96) 96 11/27/17 16:00 116 11/27/17 15:10 96 Nasal Cannula 4 36 11/27/17 14:55 97 35 11/27/17 14:00 90 11/27/17 12:00 98.7 98 16 115/55 (75) 97 11/27/17 12:00 81 11/27/17 11:11 95 35 11/27/17 10:00 90 I/O 11/27/17 11/27/17 11/27/17 11/28/17 11/28/17 11/28/17 07:00 15:00 23:00 07:00 15:00 23:00 Intake Total 100 ml 1340 ml Output Total 750 ml 800 ml Balance 100 ml -750 ml 540 ml Intake Oral 240 ml IV Total 100 ml 1100 ml Output Urine Total 750 ml 800 ml Result Diagram: 11/28/17 0409 11/28/17 0409 Imaging Last Impressions Chest X-Ray 11/28/17 0000 Signed Impressions: Service Date/Time: November 03:21 - CONCLUSION: No acute disease. Zurdo Jackson MD Objective Remarks GENERAL: Well-nourished, well-developed patient on 4 L nasal cannula which he uses at home SKIN: Warm and dry. CARDIOVASCULAR: Regular rate and rhythm without murmurs, gallops, or rubs. RESPIRATORY: Breath sounds equal bilaterally. No accessory muscle use. Bilateral occasional fine rhonchi and wheezes GASTROINTESTINAL: Abdomen soft, non-tender, nondistended. MUSCULOSKELETAL: No cyanosis, or edema. BACK: Nontender without obvious deformity. NEURO EXAM: Awake and alert nonfocal Procedures Intubation A/P Problem List: (1) COPD with acute exacerbation ICD Code: J44.1 - Chronic obstructive pulmonary disease with (acute) exacerbation (2) Chronic respiratory failure ICD Code: J96.10 - Chronic respiratory failure, unspecified whether with hypoxia or hypercapnia Assessment and Plan Acute on chronic respiratory failure secondary to COPD exacerbation. Improved. Wean oxygen to keep saturations at least 92%, continue nebulizations, empiric antibiotics and wean steroids. Increase activity as tolerated Diabetes mellitus. Stable -Insulin sliding scale Hypertension. Stable -Carvedilol and restart Cardizem. -Discontinue propranolol. Discussed with nursing to obtain home med list from PCP to clarify as patient on 2 beta-blockers DVT GI prophylaxis -Renzo's and SCDs -Lovenox -Pepcid Discontinue Yee catheter Discharge Planning Stable for transfer to floor and possible discharge later on in the morning. PT evaluation Discharge patient to home Condition on discharge: Improved Regular Diet as tolerated Ad Barbara activity no driving Rx written: Ceftin and prednisone Follow-up with primary care physician and pulmonary Shayan Gutierrez MD Nov 28, 2017 09:24
--- NOTE | 2017-11-28 09:30 | HHI.DCPOC ---
Discharge Care Plan Diagnosis: (1) COPD with acute exacerbation Your Health Problems Are: Difficulty with ADL Exercise Tolerance Goals to Promote Your Health * To prevent worsening of your condition and complications * To maintain your health at the optimal level Directions to Meet Your Goals Take your medications as prescribed Follow your dietary instruction Follow activity as directed Keep your appointments as scheduled Take your immunizations and boosters as scheduled If your symptoms worsen call your PCP, if no PCP go to Urgent Care Center or Emergency Room Smoking is Dangerous to Your Health. Avoid second hand smoke Call the 24-hour hour crisis hotline for domestic abuse at Shayan Gutierrez MD Nov 28, 2017 09:30
--- NOTE | 2017-11-28 09:30 | HHI.FF ---
Face to Face Verification Diagnosis: (1) COPD with acute exacerbation Physical Therapy Order: Evaluate and Treat, Improve ambulation, Strength and gait training Home Health Nursing Order: Medical education Signs/symptoms of disease process Oxygen administration education Medication education-adverse effect Nursing assessment with vital signs I have seen patient Sundar Li on 11/28/17. My clinical findings support the need for the requested home health care services because: Patient has SOB I certify that my clinical findings support that this patient is homebound because: Hx COPD- exertion dyspnea/weakness Unsafe to leave home unassisted Shayan Gutierrez MD Nov 28, 2017 09:30
[2017-11-28] MEDS: BUDESONIDE-FORMOTEROL 160/4.5 MCG INHALER INH SCH ×2 (09:32→20:03)
[2017-11-28] MEDS: CARVEDILOL 6.25 MG TAB PO SCH ×2 (09:33→20:01)
[2017-11-28] MEDS: DOCUSATE SODIUM 50 MG/SENNA 8.6 MG TAB PO SCH ×2 (09:33→20:01)
[2017-11-28] MEDS: predniSONE 20 MG TAB PO SCH (09:48)
[2017-11-28] MEDS ORDERED: CEFU1TAB20 PO (17:42)
[2017-11-28] MEDS ORDERED: PRED20 PO (17:42)
[2017-11-28] MEDS: CEFUROXIME AXETIL 500 MG TAB PO SCH (20:01)
[2017-11-29] VITALS (10 sets, daily range): BP systolic 129–182; BP diastolic 68–95; PULSE 97–122; RESP 18–20; TEMP 96–97.6; O2SAT 87–97
[2017-11-29] MEDS: RESP: ALBUTEROL 2.5 MG/IPRATROPIUM 0.5 MG NEB (SCH) INH ×6 (00:15→19:40)
[2017-11-29] MEDS: CHLORHEXIDINE GLUCONATE 2 % 1 PACK (2 CLOTHS) TOP SCH (03:16)
[2017-11-29] MEDS: ENOXAPARIN SODIUM 40 MG/0.4 ML SYRINGE SQ SCH (05:35)
[2017-11-29] MEDS: CHLORHEXIDINE 0.12% (ORAL KIT) 15 ML CUP MT SCH ×2 (08:00→20:00)
[2017-11-29] MEDS: INSULIN NovoLIN REGULAR SUPPLEMENTAL SCALE SQ SCH ×4 (08:00→21:00)
--- NOTE | 2017-11-29 08:00 | MB ---
cc: Asuncion Hayes MD DATE: 11/28/2017 HISTORY OF PRESENT ILLNESS: Mr. Li is a 67-year-old white male with a history of COPD, oxygen dependent. He has actually been at home on oxygen for a few years. He is followed at the [place] normally. He was hospitalized here last week for a mild exacerbation, went home stable, but came back yesterday in acute respiratory failure. He has been hospitalized several times for COPD but says that he had not previously been intubated. He did very well overnight with bronchodilators and steroids and was extubated earlier today, currently on 4 liters nasal oxygen with O2 saturation of 98%. The patient denies a prior cardiovascular history. He says that he has had no chest pain or angina. No history of ischemic heart disease, although he does have hypertension and he is diabetic for several years. This incident came on rather suddenly, but he had had a cough with some congestion, but no hemoptysis. No notable fever, just progressive severe dyspnea. PAST MEDICAL HISTORY: As noted above. He has also had left shoulder surgery. ALLERGIES: NONE KNOWN FAMILY HISTORY: Really unknown. He says he has not been in contact with family in decades. SOCIAL HISTORY: Quit smoking 4 or 5 years ago, probably has a [id number]-[id number] smoking history. No excessive alcohol use. No illicit drug use. CURRENT MEDICATIONS: Reviewed in the EMR. REVIEW OF SYSTEMS: No nausea or vomiting. No abdominal pain. No recent change in bowel habits. No increasing edema. No history of DVT. PHYSICAL EXAMINATION: VITAL SIGNS: Afebrile, pulse 100, respirations 18-22, blood pressure 160/70, O2 saturation on 4 liters 98%. HEENT: Sclerae are anicteric. Mucous membranes are not distended. CHEST: Diminished prolonged expiration with end expiratory wheezes. No congestion or rhonchi. HEART: Regular rhythm. No harsh murmur. ABDOMEN: Obese, but soft. EXTREMITIES: No pitting edema at the ankles. LABORATORY DATA: White count 16,000. Blood gas on 4 liters today 65 pO2, pH 7.4, pCO2 49. White count 16,000, hemoglobin 13, BUN 19 with a creatinine of 1.28. BNP was low at 12. Blood cultures have been negative and legionella and pneumococcal antigens in the urine are negative. IMAGING STUDIES: Chest x-ray, nothing acute. DISCUSSION: Mr. Li has oxygen dependent chronic obstructive pulmonary disease. He had been recently hospitalized just for a short interval, about 24 hours, seemed stable, went home, but came back in much more acute distress. He required intubation and ventilation overnight but seems quite stable today. We will continue his aerosolized nebulized treatments along with Symbicort, prophylactic Lovenox and prednisone was instituted today. IV methylprednisolone was discontinued. Further diagnostic and/or therapeutic intervention will depend on his ongoing clinical course. R. MD CAYDEN Cabrales/ , 05:17 PM , 06:34 PM
[2017-11-29] MEDS: CARVEDILOL 6.25 MG TAB PO SCH ×2 (08:33→20:58)
[2017-11-29] MEDS: CEFUROXIME AXETIL 500 MG TAB PO SCH ×2 (08:33→20:58)
[2017-11-29] MEDS: predniSONE 20 MG TAB PO SCH (08:33)
[2017-11-29] MEDS: DOCUSATE SODIUM 50 MG/SENNA 8.6 MG TAB PO SCH ×2 (08:33→20:58)
[2017-11-29] MEDS: SODIUM CHLORIDE 0.9% FLUSH 10 ML FLUSH IV FLUSH SCH ×2 (08:34→20:59)
[2017-11-29] MEDS: ARTIFICIAL TEARS OPTH SOLN 15 ML BTL EACH EYE SCH ×3 (08:34→17:18)
[2017-11-29] MEDS: BUDESONIDE-FORMOTEROL 160/4.5 MCG INHALER INH SCH ×2 (08:36→20:59)
--- NOTE | 2017-11-29 13:02 | HHI.PR ---
Subjective Remarks Follow-up COPD exacerbation. States he is more congested today currently on 4 L. He has been ambulating in the room. Discussed with nursing Objective Vitals Vital Signs Date Time Temp Pulse Resp B/P (MAP) Pulse Ox O2 Delivery O2 Flow Rate FiO2 11/29/17 08:44 Nasal Cannula 4.00 11/29/17 08:00 97.6 105 19 132/80 (97) 95 11/29/17 07:50 97 Nasal Cannula 5.00 11/29/17 03:15 109 95 11/29/17 03:13 122 87 11/29/17 00:00 96.0 117 18 129/82 (98) 96 11/28/17 21:01 96 Nasal Cannula 4.00 11/28/17 20:00 95.4 122 18 139/81 (100) 96 11/28/17 19:55 Nasal Cannula 4.00 11/28/17 17:08 97.4 114 20 164/81 (108) 96 11/28/17 14:00 112 I/O 11/28/17 11/28/17 11/28/17 11/29/17 11/29/17 11/29/17 07:00 15:00 23:00 07:00 15:00 23:00 Intake Total 1340 ml 240 ml Output Total 800 ml Balance 540 ml 240 ml Intake Oral 240 ml 240 ml IV Total 1100 ml Output Urine Total 800 ml # Voids 2 Result Diagram: 11/28/17 0409 11/28/17 0409 Imaging Last Impressions Chest X-Ray 11/28/17 0000 Signed Impressions: Service Date/Time: November 03:21 - CONCLUSION: No acute disease. Zurdo Jackson MD Objective Remarks GENERAL: Well-nourished, well-developed patient on 4 L nasal cannula which he uses at home SKIN: Warm and dry. CARDIOVASCULAR: Regular rate and rhythm without murmurs, gallops, or rubs. RESPIRATORY: Breath sounds equal bilaterally. No accessory muscle use. Bilateral occasional fine rhonchi and wheezes GASTROINTESTINAL: Abdomen soft, non-tender, nondistended. MUSCULOSKELETAL: No cyanosis, or edema. BACK: Nontender without obvious deformity. NEURO EXAM: Awake and alert nonfocal Procedures Intubation A/P Problem List: (1) COPD with acute exacerbation ICD Code: J44.1 - Chronic obstructive pulmonary disease with (acute) exacerbation (2) Chronic respiratory failure ICD Code: J96.10 - Chronic respiratory failure, unspecified whether with hypoxia or hypercapnia Assessment and Plan Acute on chronic respiratory failure secondary to COPD exacerbation. Complaining of increased congestion today. Wean oxygen to keep saturations at least 92%, continue nebulizations, empiric antibiotics and wean steroids. Increase activity as tolerated Diabetes mellitus. Stable -Insulin sliding scale Hypertension. Suboptimal control -Carvedilol and restart Cardizem. IV Vasotec as needed continue to monitor -Discontinue propranolol. Discussed with nursing to obtain home med list from PCP to clarify as patient on 2 beta-blockers DVT GI prophylaxis -Renzo's and SCDs -Lovenox -Pepcid Discharge Planning Possible discharge later today or in the morning Shayan Gutierrez MD Nov 29, 2017 13:02
[2017-11-29] MEDS ORDERED: ENALAPRILAT 1.25 MG/ML VIAL IV PUSH PRN (13:15)
[2017-11-29] MEDS: NIFEdipine 60 MG SUSTAINED RELEASE TAB PO SCH (17:17)
[2017-11-29] MEDS: ALBUTEROL SULFATE 90 MCG/ACT HFA 8 GM INHALER INH PRN (17:19)
[2017-11-30] VITALS: BP 157/75; PULSE 102; RESP 20; TEMP 97.1; O2SAT 95
[2017-11-30] MEDS: RESP: ALBUTEROL 2.5 MG/IPRATROPIUM 0.5 MG NEB (SCH) INH ×4 (00:02→11:51)
[2017-11-30] MEDS: CHLORHEXIDINE GLUCONATE 2 % 1 PACK (2 CLOTHS) TOP SCH (04:00)
[2017-11-30] MEDS: ENOXAPARIN SODIUM 40 MG/0.4 ML SYRINGE SQ SCH (04:43)
[2017-11-30 08:00] VITALS: BP 149/80; PULSE 108; RESP 18; TEMP 97.2; O2SAT 97
[2017-11-30] MEDS: CHLORHEXIDINE 0.12% (ORAL KIT) 15 ML CUP MT SCH (08:00)
[2017-11-30 08:12] VITALS: O2SAT 97
[2017-11-30] MEDS: ARTIFICIAL TEARS OPTH SOLN 15 ML BTL EACH EYE SCH ×2 (09:00→12:13)
[2017-11-30] MEDS: CEFUROXIME AXETIL 500 MG TAB PO SCH (10:00)
[2017-11-30] MEDS: predniSONE 20 MG TAB PO SCH (10:00)
[2017-11-30] MEDS: NIFEdipine 60 MG SUSTAINED RELEASE TAB PO SCH (10:00)
[2017-11-30] MEDS: SODIUM CHLORIDE 0.9% FLUSH 10 ML FLUSH IV FLUSH SCH (10:01)
[2017-11-30] MEDS: ALBUTEROL SULFATE 90 MCG/ACT HFA 8 GM INHALER INH PRN (10:01)
[2017-11-30] MEDS: DOCUSATE SODIUM 50 MG/SENNA 8.6 MG TAB PO SCH (10:01)
[2017-11-30] MEDS: CARVEDILOL 6.25 MG TAB PO SCH (10:01)
[2017-11-30] MEDS: BUDESONIDE-FORMOTEROL 160/4.5 MCG INHALER INH SCH (10:02)
[2017-11-30] MEDS: INSULIN NovoLIN REGULAR SUPPLEMENTAL SCALE SQ SCH ×2 (10:14→12:00)
[2017-11-30 12:00] VITALS: BP 159/78; PULSE 112; RESP 20; TEMP 97.4; O2SAT 93
--- NOTE | 2017-11-30 12:08 | HHI.PR ---
Subjective Remarks Follow-up COPD exacerbation. He is doing better with increased exercise tolerance. Stable for discharge discussed with nursing. Objective Vitals Vital Signs Date Time Temp Pulse Resp B/P (MAP) Pulse Ox O2 Delivery O2 Flow Rate FiO2 11/30/17 09:00 97 Nasal Cannula 4.00 11/30/17 08:12 97 Nasal Cannula 4.00 11/30/17 08:00 97.2 108 18 149/80 (103) 97 11/30/17 00:00 97.1 102 20 157/75 (102) 95 11/29/17 20:52 Nasal Cannula 4.00 Humidified 11/29/17 20:00 97.2 120 18 156/68 (97) 93 11/29/17 19:41 93 Nasal Cannula 4.00 11/29/17 17:16 107 132/78 (96) 11/29/17 16:00 97.3 119 20 182/95 (124) 93 I/O 11/29/17 11/29/17 11/29/17 11/30/17 11/30/17 11/30/17 07:00 15:00 23:00 07:00 15:00 23:00 Intake Total 240 ml 1200 ml Balance 240 ml 1200 ml Intake Oral 240 ml 1200 ml # Voids 2 4 # Bowel Movements 1 Result Diagram: 11/28/17 0409 11/28/17 0409 Imaging Last Impressions Chest X-Ray 11/28/17 0000 Signed Impressions: Service Date/Time: November 03:21 - CONCLUSION: No acute disease. Zurdo Jackson MD Objective Remarks GENERAL: Well-nourished, well-developed patient on 4 L nasal cannula which he uses at home SKIN: Warm and dry. CARDIOVASCULAR: Regular rate and rhythm without murmurs, gallops, or rubs. RESPIRATORY: Breath sounds equal bilaterally. No accessory muscle use. No wheezes GASTROINTESTINAL: Abdomen soft, non-tender, nondistended. MUSCULOSKELETAL: No cyanosis, or edema. BACK: Nontender without obvious deformity. NEURO EXAM: Awake and alert nonfocal Procedures Intubation A/P Problem List: (1) COPD with acute exacerbation ICD Code: J44.1 - Chronic obstructive pulmonary disease with (acute) exacerbation (2) Chronic respiratory failure ICD Code: J96.10 - Chronic respiratory failure, unspecified whether with hypoxia or hypercapnia Assessment and Plan Acute on chronic respiratory failure secondary to COPD exacerbation. Improved. Wean oxygen to keep saturations at least 92%, continue nebulizations, empiric antibiotics and wean steroids. Increase activity as tolerated Diabetes mellitus. Stable -Insulin sliding scale Hypertension. Improving -Carvedilol and restart Cardizem. IV Vasotec as needed continue to monitor -Discontinue propranolol. Discussed with nursing to obtain home med list from PCP to clarify as patient on 2 beta-blockers DVT GI prophylaxis -Renzo's and SCDs -Lovenox -Pepcid Discharge Planning Stable for discharge Shayan Gutierrez MD Nov 30, 2017 12:08
--- NOTE | 2017-11-30 15:22 | HHI.DS ---
Discharge Summary Admission Date Nov 27, 2017 at 04:05 Discharge Date: Nov 30, 2017 Admitting Diagnosis Respiratory Failure, Copd Exacerbation (1) COPD with acute exacerbation ICD Code: J44.1 - Chronic obstructive pulmonary disease with (acute) exacerbation Diagnosis: Principal (2) Chronic respiratory failure ICD Code: J96.10 - Chronic respiratory failure, unspecified whether with hypoxia or hypercapnia Diagnosis: Principal Procedures Intubation Brief History - From Admission 67 year old male who presents with a history of shortness of breath that began sometime prior to arrival. According to chart review the patient was short of breath on EMS arrival with wheezing. The patient was saturating in the 80s on 2 L nasal cannula O2. The patient was at home alone. The patient was placed on a nonrebreather mask briefly while getting him out of his apartment. The patient then became less alert. According to ambulance services the patient denied having any chest pain. The patient arrived to emergency department in severe respiratory failure requiring emergent intubation by ED attending. CBC/BMP: 11/28/17 0409 11/28/17 0409 Significant Findings Laboratory Tests Test 11/28/17 04:09 11/28/17 04:21 White Blood Count 16.8 TH/MM3 (4.0-11.0) Red Blood Count 4.26 MIL/MM3 (4.50-5.90) Hematocrit 37.7 % (39.0-51.0) Neutrophils (%) (Auto) 92.8 % (16.0-70.0) Lymphocytes (%) (Auto) 5.1 % (9.0-44.0) Neutrophils # (Auto) 15.6 TH/MM3 (1.8-7.7) Lymphocytes # (Auto) 0.9 TH/MM3 (1.0-4.8) Blood Urea Nitrogen 19 MG/DL (7-18) Random Glucose 171 MG/DL (74-106) Albumin 3.3 GM/DL (3.4-5.0) Phosphorus Level 1.6 MG/DL (2.5-4.9) Estimat Glomerular Filtration Rate 56 ML/MIN (>89) Blood Gas HCO3 31 mmol/L (22-26) Blood Gas Base Excess 6.0 mmol/L (-2-2) Arterial Blood Partial Pressure CO2 49 mmHg (38-42) Imaging Last Impressions Chest X-Ray 11/28/17 0000 Signed Impressions: Service Date/Time: November 03:21 - CONCLUSION: No acute disease. Zurdo Jackson MD PE at Discharge GENERAL: Well-nourished, well-developed patient on 4 L nasal cannula which he uses at home SKIN: Warm and dry. CARDIOVASCULAR: Regular rate and rhythm without murmurs, gallops, or rubs. RESPIRATORY: Breath sounds equal bilaterally. No accessory muscle use. No wheezes GASTROINTESTINAL: Abdomen soft, non-tender, nondistended. MUSCULOSKELETAL: No cyanosis, or edema. BACK: Nontender without obvious deformity. NEURO EXAM: Awake and alert nonfocal Hospital Course Acute on chronic respiratory failure secondary to COPD exacerbation. Improved. Wean oxygen to keep saturations at least 92%, continue nebulizations, empiric antibiotics and wean steroids. Increase activity as tolerated Diabetes mellitus. Stable -Insulin sliding scale Hypertension. Improving -Carvedilol and restart Cardizem. IV Vasotec as needed continue to monitor -Discontinue propranolol. Discussed with nursing to obtain home med list from PCP to clarify as patient on 2 beta-blockers DVT GI prophylaxis -Renzo's and SCDs -Lovenox -Pepcid Pt Condition on Discharge: Stable Discharge Disposition: Discharge Home Discharge Time: > 30 minutes Discharge Instructions DIET: Follow Instructions for: Heart Healthy Diet, Diabetic Diet Speech Therapy-Diet Recommends: Regular Activities you can perform: Regular-No Restrictions Activities to Avoid: Driving Follow up Referrals: PCP Follow-up - 1 Week Pulmonology - 1 Week New Medications: Cefuroxime (Cefuroxime) 500 Mg Tab 500 MG PO Q12HR for Infection, #10 TAB Prednisone (Prednisone) 20 Mg Tab 40 MG PO DAILY for Control Inflammation, #10 TAB Continued Medications: Albuterol 18 GM Inh (Ventolin Hfa 18 GM Inh) 90 Mcg/Act Aer 2 PUFF INH Q4-6H PRN for SHORTNESS OF BREATH, #1 INHALER 0 Refills Budesonide-Formoterol Inh (Symbicort Inh) 160-4.5 Mcg/Act Aero 1 PUFF INH Q12HR for COPD for 30 Days, INHALER Carvedilol (Coreg) 6.25 Mg Tab 6.25 MG PO Q12HR for Heart, #60 TAB Fluticasone Nasal [place] (Fluticasone Nasal [place]) 50 Mcg/Act Naspr 1 SPRAY NASAL BID for allergies, #1 BOTTLE 0 Refills 50 mcg/spray Metformin (Metformin) 500 Mg Tab 500 MG PO BIDPC for Blood Sugar Management, #60 TAB 0 Refills With meals Nifedipine ER 24 HR (Nifedipine ER 24 HR) 60 Mg Tab 60 MG PO DAILY for Blood Pressure Management, #30 TAB Shayan Gutierrez MD Nov 30, 2017 15:22
[2017-11-30] MEDS ORDERED: RESP: ALBUTEROL 2.5 MG/IPRATROPIUM 0.5 MG NEB (SCH) NEB (16:00)
== END 2017-11-30 16:47 | disposition home or self-care (01) | DRG 208 ==
LOC: NEPE 02:36 → NEDA 04:05 → HIMN 06:20 → N07B 11-28 16:16
PROVIDERS: ADMIT Internal Medicine; ATTEND Internal Medicine
PROC: 0BH17EZ Insertion of Endotracheal Airway into Trachea, Via Natural or Artificial Opening (ICD-10-PCS; principal; 2017-11-27)
PROC: 5A1935Z Respiratory Ventilation, Less than 24 Consecutive Hours (ICD-10-PCS; 2017-11-27)
DX: J44.1 Chronic obstructive pulmonary disease with (acute) exacerbation (principal); J96.20 Acute and chronic respiratory failure, unspecified whether with hypoxia or hypercapnia; Z99.81 Dependence on supplemental oxygen; I10 Essential (primary) hypertension; E11.9 Type 2 diabetes mellitus without complications; Z87.891 Personal history of nicotine dependence
CPT/HCPCS: 31500; 36600; 51702; 71045; 80048; 80053; 81001; 82550; 82805; 82948; 83735; 83880; 84100; 84484; 85025; 85610; 85730; 87040; 87449; 87641; 93005; 94002; 94640; 94664; 96365; 96375; J0330; J0456; J0696; J1650; J1815; J2920; J2930; J7030; J7050; J7512

== ENCOUNTER 2017-12-23 09:54 | Inpatient (IN) | payer OTHER ==
[2017-12-23] VITALS (24 sets, daily range): BP systolic 121–161; BP diastolic 60–84; PULSE 88–105; RESP 12–21; TEMP 97.9–98.9; O2SAT 98–100
[~2017-12-23] VITALS: Ht 175.3 cm; Wt 100.9 kg
[~2017-12-23 09:54] MED LIST changes: +CEFU1TAB20 PO; +PRED20 PO
[2017-12-23] MEDS ORDERED: PROPOFOL 500 MG/50 ML INJ 50 ML ONE (09:57)
[2017-12-23] MEDS ORDERED: SODIUM CHLORIDE 0.9% FLUSH 10 ML FLUSH IVF PRN (10:00)
[2017-12-23] MEDS: RESP: ALBUTEROL 2.5 MG/3 ML NEB (SCH) INH ×3 (10:00→10:30)
[2017-12-23 10:47] LABS: AUTOMATED NEUTROPHIL # 7.4 TH/MM3 (1.8-7.7); BASOPHIL # 0.1 TH/MM3 (0-0.2); BASOPHIL % 0.5 % (0.0-2.0); EOSINOPHIL # 0.4 TH/MM3 (0-0.4); EOSINOPHIL % 3.7 % (0.0-4.0); HEMATOCRIT 42.4 % (39.0-51.0); HEMOGLOBIN 13.9 GM/DL (13.0-17.0); LYMPH % 22.8 % (9.0-44.0); LYMPHOCYTE # 2.6 TH/MM3 (1.0-4.8); MEAN CELL VOLUME 91.6 FL (80.0-100.0); MEAN CORPUSCULAR HEMOGLOBIN 30.1 PG (27.0-34.0); MEAN CORPUSCULAR HGB CONC 32.8 % (32.0-36.0); MEAN PLATELET VOLUME 9.2 FL (7.0-11.0); PLATELET COUNT 289 TH/MM3 (150-450); RED BLOOD COUNT 4.64 MIL/MM3 (4.50-5.90); RED CELL DISTRIBUTION WIDTH 14.6 % (11.6-17.2); WHITE BLOOD COUNT 11.6 TH/MM3 (4.0-11.0)
--- NOTE | 2017-12-23 10:52 | RADRPT ---
EXAM DATE/TIME: 12/23/2017 10:16 [place] COMPARISON: CHEST SINGLE AP, November 28, 2017, 3:21. INDICATIONS : Post intubation. MEDICAL HISTORY : Chronic obstructive pulmonary disease. SURGICAL HISTORY : None. ENCOUNTER: Initial ACUITY: 1 day PAIN SCORE: Non-responsive. LOCATION: Bilateral chest FINDINGS: ET tube in good position. Nasogastric tube probably across GE junction. Tip not visualized. Lungs a re clear. The heart and pulmonary vascularity are normal. The portion of the bony skeleton visualized is unremarkable. CONCLUSION: ET good position. Cannot see tip of nasogastric tube. Chalo Larios MD FACR on December 23, 2017 at 10:49 Board Certified Radiologist. This report was verified electronically.
[2017-12-23 11:07] LABS: ALKALINE PHOSPHATASE 84 U/L (45-117); TOTAL BILIRUBIN ADULT 0.6 MG/DL (0.2-1.0)
[2017-12-23 11:12] LABS: ALBUMIN 3.3 GM/DL (3.4-5.0); ALT (GPT) 26 U/L (12-78); AST (GOT) 30 U/L (15-37); BICARBONATE 28.9 MEQ/L (21.0-32.0); BLOOD UREA NITROGEN 14 MG/DL (7-18); CALCIUM 8.4 MG/DL (8.5-10.1); CHLORIDE 108 MEQ/L (98-107); CREATININE 1.18 MG/DL (0.60-1.30); GLOMERULAR FILTRATION RATE 61 ML/MIN (>89); GLUCOSE,RANDOM 171 MG/DL (74-106); SODIUM (NA) 144 MEQ/L (136-145)
[2017-12-23] MEDS ORDERED: SODIUM CHLORIDE 0.9% FLUSH 10 ML FLUSH IV FLUSH PRN (11:45)
[2017-12-23] MEDS ORDERED: ONDANSETRON HCL 4 MG/2 ML VIAL IV PUSH PRN (11:45)
[2017-12-23] MEDS ORDERED: fentaNYL DRIP 250 ML IV PRN (11:45)
[2017-12-23] MEDS ORDERED: NURSING INFORMATION XX SCH (11:45)
[2017-12-23] MEDS ORDERED: LACTULOSE SYRUP 20 GM/30 ML CUP PO PRN (11:45)
[2017-12-23] MEDS ORDERED: MAGNESIUM HYDROXIDE SUSP 30 ML CUP PO PRN (11:45)
[2017-12-23] MEDS ORDERED: CHLORHEXIDINE GLUCONATE 2 % 1 PACK (2 CLOTHS) TOP PRN (11:45)
[2017-12-23] MEDS ORDERED: RESP: ALBUTEROL 2.5 MG/3 ML NEB (PRN) INH (11:45)
[2017-12-23] MEDS ORDERED: SENNOSIDES 8.6 MG TAB PO PRN (11:45)
[2017-12-23] MEDS ORDERED: BISACODYL 10 MG SUPP RECTAL PRN (11:45)
[2017-12-23] MEDS ORDERED: RESP: ALBUTEROL 2.5 MG/IPRATROPIUM 0.5 MG NEB (PRN) ONE (11:55)
[2017-12-23] MEDS ORDERED: GLUCAGON 1 MG/ML VIAL OTHER PRN (12:00)
[2017-12-23] MEDS ORDERED: POTASSIUM PHOSPHATE INJ 30 MMOL in SODIUM CHLOR 0.9% 250 ML INJ 250 ML IV PRN (12:00)
[2017-12-23] MEDS ORDERED: POTASSIUM CHLOR 40 MEQ PREMIX 100 ML IV PRN ×2 (12:00)
[2017-12-23] MEDS ORDERED: POTASSIUM CHLORIDE 25 MEQ EFFERVESCENT TAB PO PRN (12:00)
[2017-12-23] MEDS ORDERED: SODIUM CHLOR 0.9% 1000 ML INJ 1,000 ML IV SCH (12:00)
[2017-12-23] MEDS ORDERED: MAGNESIUM OXIDE 400 MG TAB PO PRN (12:00)
[2017-12-23] MEDS ORDERED: MAGNESIUM SULFATE INJ 2 GM in SODIUM CHLORIDE 0.9% INJ 96 ML IV PRN (12:00)
[2017-12-23] MEDS ORDERED: DEXTROSE 50% IN WATER 50 ML VIAL(D50) IV PUSH PRN (12:00)
[2017-12-23] MEDS ORDERED: POTASSIUM CHLOR 20 MEQ PREMIX 100 ML IV PRN ×2 (12:00)
[2017-12-23] MEDS ORDERED: POTASSIUM PHOSPHATE MONOBASIC 500 MG TAB PO PRN (12:00)
[2017-12-23] MEDS ORDERED: MAGNESIUM SULFATE INJ 4 GM in SODIUM CHLORIDE 0.9% INJ 92 ML IV PRN (12:00)
[2017-12-23] MEDS ORDERED: SODIUM PHOSPHATE INJ 30 MMOL in SODIUM CHLOR 0.9% 250 ML INJ 240 ML IV PRN (12:00)
[2017-12-23] MEDS ORDERED: POTASSIUM PHOSPHATE MONOBASIC 500 MG TAB PO/TUBE PRN (12:00)
[2017-12-23] MEDS ORDERED: ACETAMINOPHEN 650 MG/20.3 ML UDC PO PRN (12:00)
--- NOTE | 2017-12-23 12:04 | PD ---
HPI Chief Complaint: Respiratory Distress Time Seen by Provider: 09:58 Travel History International Travel<30 days: No Contact w/Intl Traveler<30days: No Traveled to known affect area: No History of Present Illness HPI This is a 67 year old male who has a history of COPD who presents to the emergency department having been found by EMS in his apartment in respiratory distress. Patient was trying to use his nebulizer machine but was in severe respiratory distress. EMS got him out to the ambulance but he was becoming increasingly lethargic so the decision was made to intubate the patient. He was given etomidate and Versed. The intubation was uncomplicated. He was given a bronchodilator treatment and IV steroids in the field. History is limited as the patient is intubated PFS Past Medical History Arthritis: Yes Asthma: No Autoimmune Disease: No Blood Disorders: No Anxiety: No Depression: Yes Cancer: No Cardiovascular Problems: No Congestive Heart Failure: No COPD: Yes Coronary Artery Disease: No Diabetes: Yes Patient Takes Glucophage: Yes Diminished Hearing: Yes ([place]) Endocrine: Yes Genitourinary: No Immune Disorder: No Musculoskeletal: No Neurologic: No Psychiatric: No Reproductive: No Respiratory: Yes Immunizations Current: Yes Sickle Cell Disease: No Sleep Apnea: No Thyroid Disease: No Tetanus Vaccination: > 5 Years Past Surgical History Abdominal Surgery: No Cardiac Surgery: No Ear Surgery: No Endocrine Surgery: No Eye Surgery: No Genitourinary Surgery: No Gynecologic Surgery: No Oral Surgery: No Thoracic Surgery: No Tonsillectomy: Yes Other Surgery: Yes Social History Alcohol Use: No (bubba) Tobacco Use: No (bubba) Substance Use: No (bubba) Allergies-Medications (Allergen,Severity, Reaction): Coded Allergies: No Known Allergies (Unverified Allergy, Unknown, 09/25/17) Reported Meds & Prescriptions Reported Meds & Active Scripts Active Prednisone 20 Mg Tab 40 Mg PO DAILY Cefuroxime (Cefuroxime Axetil) 500 Mg Tab 500 Mg PO Q12HR Prednisone 50 Mg Tab 50 Mg PO DAILY Fluticasone Nasal [place] 50 Mcg/Act Naspr 1 [place] NASAL BID 50 mcg/spray Propranolol (Propranolol HCl) 20 Mg Tab 20 Mg PO Q12HR Amoxicillin-Clavulanate 875-125 mg Tab 875 Mg PO Q12H not for use in CrCl <30 mL/minute Coreg (Carvedilol) 6.25 Mg Tab 6.25 Mg PO Q12HR Ventolin Hfa 18 GM Inh (Albuterol Sulfate) 90 Mcg/Act Aer 2 Puff INH Q4-6H PRN Metformin (Metformin HCl) 500 Mg Tab 500 Mg PO BIDPC With meals Symbicort Inh (Budesonide/Formoterol Fumarate) 160-4.5 Mcg/Act Aero 1 Puff INH Q12HR 30 Days Nifedipine ER 24 HR (Nifedipine) 60 Mg Tab 60 Mg PO DAILY Review of Systems ROS Limitations: Intubated Physical Exam Narrative GENERAL: Well-appearing SKIN: Focused skin assessment warm and dry. HEAD: Atraumatic. Normocephalic. EYES: Pupils equal and round. No injection or drainage. ENT: Moist mucous membranes NECK: Trachea midline. CARDIOVASCULAR: Regular rate and rhythm. No murmur appreciated. RESPIRATORY: Diffuse wheezing, poor air movement GASTROINTESTINAL: Abdomen soft, non-tender, nondistended. MUSCULOSKELETAL: No obvious deformities. No edema. No calf swelling. NEUROLOGICAL: Awake and alert. No obvious cranial nerve deficits. Moving all extremities. Data Data Last Documented VS Vital Signs Date Time Temp Pulse Resp B/P (MAP) Pulse Ox O2 Delivery O2 Flow Rate FiO2 12/23/17 11:07 96 16 157/72 (100) 100 Auto-Vent 12/23/17 10:58 50 12/23/17 09:57 97.9 Orders Orders Propofol 500 Mg/50 Ml Inj (Diprivan 500 (12/23/17 09:57) Complete Blood Count With Diff (12/23/17 09:59) Comprehensive Metabolic Panel (12/23/17 09:59) ^ Insert Iv (12/23/17 09:59) Chest, Single Ap (12/23/17 09:59) Albuterol Neb (Albuterol Neb) (12/23/17 10:00) Arterial Blood Gas (Abg) (12/23/17 09:59) Ecg Monitoring (12/23/17 09:59) Iv Access Insert/Monitor (12/23/17 09:59) Oximetry (12/23/17 09:59) Sodium Chloride 0.9% Flush (Ns Flush) (12/23/17 10:00) Restraints Non-Violent AYAD.Q3H (12/23/17 09:59) ^ Orogastric Tube (12/23/17 09:59) Urinary Catheter Insert/Apply (12/23/17 09:59) Electrocardiogram (12/23/17 ) Admit Order (Ed Use Only) (12/23/17 11:30) Labs Laboratory Tests Test 12/23/17 10:15 12/23/17 10:41 White Blood Count 11.6 TH/MM3 Red Blood Count 4.64 MIL/MM3 Hemoglobin 13.9 GM/DL Hematocrit 42.4 % Mean Corpuscular Volume 91.6 FL Mean Corpuscular Hemoglobin 30.1 PG Mean Corpuscular Hemoglobin Concent 32.8 % Red Cell Distribution Width 14.6 % Platelet Count 289 TH/MM3 Mean Platelet Volume 9.2 FL Neutrophils (%) (Auto) 64.0 % Lymphocytes (%) (Auto) 22.8 % Monocytes (%) (Auto) 9.0 % Eosinophils (%) (Auto) 3.7 % Basophils (%) (Auto) 0.5 % Neutrophils # (Auto) 7.4 TH/MM3 Lymphocytes # (Auto) 2.6 TH/MM3 Monocytes # (Auto) 1.0 TH/MM3 Eosinophils # (Auto) 0.4 TH/MM3 Basophils # (Auto) 0.1 TH/MM3 CBC Comment DIFF FINAL Differential Comment Blood Urea Nitrogen 14 MG/DL Creatinine 1.18 MG/DL Random Glucose 171 MG/DL Total Protein 7.0 GM/DL Albumin 3.3 GM/DL Calcium Level 8.4 MG/DL Alkaline Phosphatase 84 U/L Aspartate Amino Transf (AST/SGOT) 30 U/L Alanine Aminotransferase (ALT/SGPT) 26 U/L Total Bilirubin 0.6 MG/DL Sodium Level 144 MEQ/L Potassium Level 4.2 MEQ/L Chloride Level 108 MEQ/L Carbon Dioxide Level 28.9 MEQ/L Anion Gap 7 MEQ/L Estimat Glomerular Filtration Rate 61 ML/MIN Blood Gas Puncture Site RT RADIAL Blood Gas Patient Temperature 98.6 Blood Gas HCO3 29 mmol/L Blood Gas Base Excess 2.3 mmol/L Blood Gas Oxygen Saturation 98 % Arterial Blood pH 7.26 Arterial Blood Partial Pressure CO2 67 mmHg Arterial Blood Partial Pressure O2 262 mmHG Arterial Blood Oxygen Content 18.4 Vol % Arterial Blood Carboxyhemoglobin 1.1 % Arterial Blood Methemoglobin 0.8 % Blood Gas Hemoglobin 12.9 G/DL Oxygen Delivery Device VENTILATOR Blood Gas Ventilator Setting 16/550/+5 Blood Gas Inspired Oxygen 70 % MDM Medical Decision Making Medical Screen Exam Complete: Yes Emergency Medical Condition: Yes Interpretation(s) afebrile, mild tachycardia, normotensive mild leukocytosis electrolytes within normal limits Last 24 hours Impressions Chest X-Ray 12/23/17 0959 Signed Impressions: Service Date/Time: Saturday, December 23, 2017 10:16 - CONCLUSION: ET good position. Cannot see tip of nasogastric tube. Chalo Larios MD FACR Differential Diagnosis COPD exacerbation, respiratory failure, pneumonia, sepsis Narrative Course 67-year-old male who presents the emergency department with acute respiratory failure. He was intubated in the field by EMS. He received steroids with EMS. Bronchodilators were continued in the emergency department. Chest x-ray demonstrates no pneumothorax or hernia. He was placed on propofol here in the emergency department. Patient will be admitted to the intensive care unit for further management. Critical Care Narrative Aggregate critical care time was 35 minutes. Time to perform other separately billable procedures was not included in the critical care time. My time did not include minutes spent treating any other patients simultaneously or on activities that did not directly contribute to the patient's treatment. The services I provided to this patient were to treat and/or prevent clinically significant deterioration that could result in: disability, I provided critical care services requiring my management, as noted below: Chart data review, documentation time, medication orders and management, vital sign assessments/reviewing monitor data, ordering and reviewing lab tests, ordering and interpreting/reviewing x-rays and diagnostic studies, care of the patient and discussion of the patient with the admitting physicians. Physician Communication Physician Communication Discussed with Dr. Branch Diagnosis Primary Impression: Hypercapnic respiratory failure Qualified Codes: J96.02 - Acute respiratory failure with hypercapnia Admitting Information Admitting Physician Requests: it Ludivian Santoro MD December 23, 2017 12:04
--- NOTE | 2017-12-23 12:06 | HHI.HP ---
[facility] Service Critical Care Medicine Primary Care Physician [facility] Admission Diagnosis hypercarbic respiratory failure Diagnosis: (1) Hypercapnic respiratory failure Diagnosis: Principal (2) COPD with acute exacerbation Diagnosis: Principal (3) Diabetes mellitus type 2 in obese Diagnosis: Secondary (4) Essential hypertension Diagnosis: Secondary (5) Hypoalbuminemia Diagnosis: Secondary (6) Leukocytosis Diagnosis: Secondary (7) Acute kidney injury Diagnosis: Secondary Chief Complaint: Patient is currently orotracheally intubated/short of breath Travel History International Travel<30 Days: No Contact w/Intl Traveler <30 Da: No Traveled to Known Affected Are: No History of Present Illness This is a 59-year-old male. The admission 12/23/2017. Past medical history includes oxygen dependent COPD, hypertension, dyslipidemia and morbid obesity. This patient presents to the [facility] emergency department having been found by EMS in his apartment in respiratory distress imminent respiratory failure patient was trying to use his nebulizer machine but was in severe respiratory distress. Is unclear how long the duration has been short of breath. He is recently admitted to [place] in November with similar findings of COPD. EMS got him out to the ambulance but he was becoming increasingly lethargic so the decision was made to intubate the patient. He was given etomidate and midazolam. The intubation was uncomplicated per ER records. He was given a bronchodilator treatment and IV steroids in the field. Chest x-ray revealed no acute cardiopulmonary findings. Patient is currently on a propofol drip and seen in room E 50. Minimally responsive on the ventilator. OG-tube is in place. Review of Systems ROS Limitations: Intubated Past Family Social History Allergies: Coded Allergies: No Known Allergies (Unverified Allergy, Unknown, 09/25/17) Past Medical History Diabetes mellitus type 2 COPD/oxygen dependent Hypertension Elevated BMI Past Surgical History Left shoulder repair Reported Medications Carvedilol 6.25 mg p.o. twice daily Propranolol 20 mg p.o. twice daily Nifedipine extended release 60 mg p.o. daily Budesonide/formoterol 160/4.5 2 puffs twice daily Metformin 500 mg p.o. twice daily Prednisone 50 mg p.o. daily Active Ordered Medications Reviewed in EMR Family History Patient has not seen his family in 30 years. He does not know any medical issues with first-degree relatives as well per prior review of records Social History 50 pack years tobacco. Quit 4-5 years ago. Very rare social alcohol use. Denied illicit drug use in the past. Physical Exam Vital Signs Vital Signs Date Time Temp Pulse Resp B/P (MAP) Pulse Ox O2 Delivery O2 Flow Rate FiO2 12/23/17 11:57 100 50 12/23/17 11:42 90 18 121/68 (85) 100 Auto-Vent 12/23/17 11:07 96 16 157/72 (100) 100 Auto-Vent 12/23/17 10:58 50 12/23/17 10:12 99 16 135/68 (90) 99 Auto-Vent 12/23/17 10:07 70 12/23/17 10:03 99 16 100 Auto-Vent 12/23/17 10:00 99 70 12/23/17 09:57 97.9 103 12 130/69 (89) 99 Physical Exam GENERAL: 67-year-old male with large dial currently orotracheally intubated SKIN: Warm and dry. No rash. Areas of ecchymoses bilateral lower extremities HEAD: Atraumatic. Normocephalic. EYES: Pupils equal and round about 4 mm bilaterally and reactive. No scleral icterus. No injection or drainage. ENT: No nasal bleeding or discharge. Mucous membranes pink and moist. NECK: Trachea midline. No JVD. CARDIOVASCULAR: Regular rate and rhythm. S1, S2. No strip without murmur RESPIRATORY: Diminished breath sounds throughout. Positive expiratory wheeze. No rales or rhonchorous breath sounds appreciated GASTROINTESTINAL: Abdomen soft, non-tender, somewhat protuberant. Hypoactive bowel sounds appreciated. MUSCULOSKELETAL: Extremities without significant peripheral edema. No obvious deformities. NEUROLOGICAL: Sedated on the ventilator. Positive gag and corneal reflex. Withdraws to pain bilateral upper and lower extremities on propofol drip. Laboratory Laboratory Tests Test 12/23/17 10:15 12/23/17 10:41 White Blood Count 11.6 Red Blood Count 4.64 Hemoglobin 13.9 Hematocrit 42.4 Mean Corpuscular Volume 91.6 Mean Corpuscular Hemoglobin 30.1 Mean Corpuscular Hemoglobin Concent 32.8 Red Cell Distribution Width 14.6 Platelet Count 289 Mean Platelet Volume 9.2 Neutrophils (%) (Auto) 64.0 Lymphocytes (%) (Auto) 22.8 Monocytes (%) (Auto) 9.0 Eosinophils (%) (Auto) 3.7 Basophils (%) (Auto) 0.5 Neutrophils # (Auto) 7.4 Lymphocytes # (Auto) 2.6 Monocytes # (Auto) 1.0 Eosinophils # (Auto) 0.4 Basophils # (Auto) 0.1 CBC Comment DIFF FINAL Differential Comment Blood Urea Nitrogen 14 Creatinine 1.18 Random Glucose 171 Total Protein 7.0 Albumin 3.3 Calcium Level 8.4 Alkaline Phosphatase 84 Aspartate Amino Transf (AST/SGOT) 30 Alanine Aminotransferase (ALT/SGPT) 26 Total Bilirubin 0.6 Sodium Level 144 Potassium Level 4.2 Chloride Level 108 Carbon Dioxide Level 28.9 Anion Gap 7 Estimat Glomerular Filtration Rate 61 Blood Gas Puncture Site RT RADIAL Blood Gas Patient Temperature 98.6 Blood Gas HCO3 29 Blood Gas Base Excess 2.3 Blood Gas Oxygen Saturation 98 Arterial Blood pH 7.26 Arterial Blood Partial Pressure CO2 67 Arterial Blood Partial Pressure O2 262 Arterial Blood Oxygen Content 18.4 Arterial Blood Carboxyhemoglobin 1.1 Arterial Blood Methemoglobin 0.8 Blood Gas Hemoglobin 12.9 Oxygen Delivery Device VENTILATOR Blood Gas Ventilator Setting 16/550/+5 Blood Gas Inspired Oxygen 70 Result Diagram: 12/23/17 1015 12/23/17 1015 Imaging Last Impressions Chest X-Ray 12/23/17 0959 Signed Impressions: Service Date/Time: Saturday, December 23, 2017 10:16 - CONCLUSION: ET good position. Cannot see tip of nasogastric tube. Chalo Larios MD FACR Septic Shock Reassessment Septic shock perfusion: reassessment completed Caprini VTE Risk Assessment Caprini VTE Risk Assessment: Mod/High Risk (score >= 2) VTE Pharm Contraindication: Documented Caprini Risk Assessment Model Point Value = 1 Point Value = 2 Point Value = 3 Point Value = 5 Age 41-60 Minor surgery BMI > 25 kg/m2 Swollen legs Varicose veins or History of unexplained or recurrent spontaneous Oral contraceptives or hormone replacement Sepsis (< 1 month) Serious lung disease, including pneumonia (< 1 month) Abnormal pulmonary function Acute myocardial infarction Congestive heart failure (< 1 month) History of inflammatory bowel disease Medical patient at bed rest Age 61-74 Arthroscopic surgery Major open surgery (> 45 min) Laparoscopic surgery (> 45 min) Malignancy Confined to bed (> 72 hours) Immobilizing plaster cast Central venous access Age >= 75 History of VTE Family history of VTE Factor V Leiden Prothrombin [id number] Lupus anticoagulant Anticardiolipin antibodies Elevated serum homocysteine Heparin-induced thrombocytopenia Other congenital or acquired thrombophilia Stroke (< 1 month) Elective arthroplasty Hip, pelvis, or leg fracture Acute spinal cord injury (< 1 month) Prophylaxis Regimen Total Risk Factor Score Risk Level Prophylaxis Regimen 0-1 Low Early ambulation 2 Moderate Order ONE of the following: *Sequential Compression Device (SCD) *Heparin 5000 units SQ BID 3-4 Higher Order ONE of the following medications: *Heparin 5000 units SQ TID *Enoxaparin/Lovenox 40 mg SQ daily (WT < 150 kg, CrCl > 30 mL/min) *Enoxaparin/Lovenox 30 mg SQ daily (WT < 150 kg, CrCl > 10-29 mL/min) *Enoxaparin/Lovenox 30 mg SQ BID (WT < 150 kg, CrCl > 30 mL/min) AND/OR *Sequential Compression Device (SCD) 5 or more Highest Order ONE of the following medications: *Heparin 5000 units SQ TID (Preferred with Epidurals) *Enoxaparin/Lovenox 40 mg SQ daily (WT < 150 kg, CrCl > 30 mL/min) *Enoxaparin/Lovenox 30 mg SQ daily (WT < 150 kg, CrCl > 10-29 mL/min) *Enoxaparin/Lovenox 30 mg SQ BID (WT < 150 kg, CrCl > 30 mL/min) AND *Sequential Compression Device (SCD) Assessment and Plan Assessment and Plan Neuro/Psych: Patient is currently on a propofol drip at 40 mcg/kg/min/fentanyl drip for sedation/analgesia while intubated Goal of RA SS -2 Daily sedation vacation Acetaminophen 650 mg p.o. every 6 hours as needed fever CV: Essential hypertension Currently holding home medications of carvedilol 6.25 mg p.o. twice daily nifedipine extended release 60 mg p.o. daily. Resume clinically indicated Follow-up on EKG and CPK/troponin Currently normal saline at 84 cc an hour Resp: Acute hypercapnic/hypoxic respiratory failure Chronic respiratory failure on 2 L nasal cannula at home COPD with prior history of tobaccoism [facility] 18/550///50 Ventilator bundle Albuterol/ipratropium aerosols every 4 hours with albuterol aerosols every 2 hours as needed dyspnea Budesonide 0.5/2 1 inhalation twice daily Methylprednisolone succinate 40 mg IV every 8 hours Patient is on budesonide/formoterol 160/4.5 2 puffs twice daily and albuterol inhaler every 4-6 hours as needed Patient was recently on a prednisone taper see below Chest x-ray revealed no acute cardiopulmonary findings. GI: Patient is currently n.p.o. OG tube to low intermittent wall suction Lansoprazole for GI prophylaxis Docusate sodium/senna 1 tablet twice daily for bowel regimen : Yee catheter for accurate I's and O's in a critically ill patient is indicated Endo: Chronic prednisone use Hyperglycemia Diabetes mellitus type 2 with obesity Sliding scale insulin with Novulin N with Accu-Cheks every 6 hours to maintain euglycemia/medium regimen Patient is on prednisone at home was on a taper. Currently on Solu-Medrol 40 mg IV every 8 hours. Patient is on metformin 500 mg twice daily at home. This is currently on hold Renal: Acute kidney injury Monitor urine output Accurate I's and O's Recheck BMP in a.m. with magnesium and phosphorus Heme: Leukocytosis Monitor CBC daily. Follow trends ID: Placed on empiric ceftriaxone and azithromycin day #1 Blood cultures 2, sputum, UA and influenza all have been ordered MSK: PT evaluate and treat FEN: Replace electrolytes as clinically indicated per ICU electrolyte protocol Currently normal saline 84 cc an hour Access -Utilize peripheral IV. Central line if indicated Prophylaxis -GI -lansoprazole -DVT -SCD/heparin subcu Level 3 admission Code Status Full code Discussed Condition With Dr. Santoro/ED physician. Patient. Care plan discussed and all questions answered. Problem Qualifiers (1) Hypercapnic respiratory failure: Qualified Codes: J96.02 - Acute respiratory failure with hypercapnia (2) Leukocytosis: Qualified Codes: D72.829 - Elevated white blood cell count, unspecified Rolly Branch MD December 23, 2017 12:06
[2017-12-23] MEDS: PROPOFOL 1000 MG/100 ML INJ 100 ML IV PRN ×2 (12:26→20:45)
[2017-12-23] MEDS: INSULIN NovoLIN REGULAR SUPPLEMENTAL SCALE SQ SCH ×3 (12:37→23:26)
[2017-12-23] MEDS: cefTRIAXone INJ 1,000 MG in SODIUM CHLORIDE 0.9% INJ 100 ML IV SCH (12:46)
[2017-12-23] MEDS ORDERED: ARTIFICIAL TEARS OPTH SOLN 15 ML BTL EACH EYE SCH (13:00)
[2017-12-23 13:09] LABS: BILIRUBIN, URINE NEG (NEG); BLOOD, URINE NEG (NEG); GLUCOSE,URINE NEG (NEG); KETONE, URINE NEG (NEG); MUCUS URINE FEW /lpf (OCC); NITRITE,URINE NEG (NEG); PH, URINE 6.5 (5.0-8.5); SQUAMOUS EPITHELIAL CELL URINE <1 /hpf (0-5); URINE COLOR LIGHT-YELLOW (YELLW/STRAW); URINE LEUKOCYTE ESTERASE NEG (NEG)
[2017-12-23] MEDS: HEPARIN SODIUM - SQ 10,000 UNITS/ML VIAL SQ SCH ×2 (13:45→20:44)
[2017-12-23] MEDS: methylPREDNISolone SOD SUCC 40 MG/1 ML VIAL IV PUSH SCH ×2 (14:22→20:45)
[2017-12-23] MEDS: AZITHROMYCIN INJ 500 MG in SODIUM CHLOR 0.9% 250 ML INJ 250 ML IV SCH (14:23)
[2017-12-23] MEDS: RESP: ALBUTEROL 2.5 MG/IPRATROPIUM 0.5 MG NEB (SCH) INH ×2 (14:38→21:18)
[2017-12-23] MEDS: ARTIFICIAL TEARS OPTH SOLN 15 ML BTL EACH EYE SCH ×2 (14:52→20:45)
[2017-12-23] MEDS: LACTATED RINGER'S 1000 ML INJ 1,000 ML IV SCH (19:27)
[2017-12-23] MEDS: RESP: BUDESONIDE 0.5 MG/2 ML NEB NEB SCH (20:00)
[2017-12-23] MEDS: CHLORHEXIDINE 0.12% (ORAL KIT) 15 ML CUP MT SCH (20:44)
[2017-12-23] MEDS: SODIUM CHLORIDE 0.9% FLUSH 10 ML FLUSH IV FLUSH SCH (20:44)
[2017-12-23] MEDS: DOCUSATE SODIUM 50 MG/SENNA 8.6 MG TAB PO SCH (20:44)
[2017-12-24] VITALS (17 sets, daily range): BP systolic 130–143; BP diastolic 62–67; PULSE 86–135; RESP 16–37; TEMP 98–99.1; O2SAT 92–100
[2017-12-24] MEDS: PROPOFOL 1000 MG/100 ML INJ 100 ML IV PRN ×3 (00:09→08:13)
[2017-12-24] MEDS: RESP: ALBUTEROL 2.5 MG/IPRATROPIUM 0.5 MG NEB (SCH) INH ×6 (00:12→20:52)
[2017-12-24] MEDS: CHLORHEXIDINE GLUCONATE 2 % 1 PACK (2 CLOTHS) TOP SCH (04:00)
[2017-12-24] MEDS: INSULIN NovoLIN REGULAR SUPPLEMENTAL SCALE SQ SCH ×4 (04:17→23:13)
[2017-12-24] MEDS: methylPREDNISolone SOD SUCC 40 MG/1 ML VIAL IV PUSH SCH ×3 (04:17→20:30)
[2017-12-24] MEDS: ARTIFICIAL TEARS OPTH SOLN 15 ML BTL EACH EYE SCH ×3 (04:17→20:30)
[2017-12-24] MEDS: HEPARIN SODIUM - SQ 10,000 UNITS/ML VIAL SQ SCH ×3 (04:17→20:31)
[2017-12-24] MEDS: LACTATED RINGER'S 1000 ML INJ 1,000 ML IV SCH ×2 (04:17→14:25)
[2017-12-24 04:24] LABS: AUTOMATED NEUTROPHIL # 8.4 TH/MM3 (1.8-7.7); HEMATOCRIT 39.9 % (39.0-51.0); HEMOGLOBIN 13.2 GM/DL (13.0-17.0); LYMPH % 6.5 % (9.0-44.0); LYMPHOCYTE # 0.6 TH/MM3 (1.0-4.8); MEAN CELL VOLUME 89.7 FL (80.0-100.0); MEAN CORPUSCULAR HEMOGLOBIN 29.8 PG (27.0-34.0); MEAN CORPUSCULAR HGB CONC 33.2 % (32.0-36.0); MEAN PLATELET VOLUME 9.2 FL (7.0-11.0); MONO % 1.3 % (0.0-8.0); MONOCYTE # 0.1 TH/MM3 (0-0.9); NEUT % 92.2 % (16.0-70.0); PLATELET COUNT 201 TH/MM3 (150-450); RED BLOOD COUNT 4.45 MIL/MM3 (4.50-5.90); RED CELL DISTRIBUTION WIDTH 14.2 % (11.6-17.2); WHITE BLOOD COUNT 9.1 TH/MM3 (4.0-11.0)
[2017-12-24 04:29] LABS: PROTHROMBIN TIME - PATIENT 10.4 SEC (9.8-11.6)
[2017-12-24 04:41] LABS: AST (GOT) 15 U/L (15-37); BICARBONATE 29.8 MEQ/L (21.0-32.0); BLOOD UREA NITROGEN 15 MG/DL (7-18); CALCIUM 8.7 MG/DL (8.5-10.1); CHLORIDE 106 MEQ/L (98-107); CREATININE 1.14 MG/DL (0.60-1.30); GLOMERULAR FILTRATION RATE 64 ML/MIN (>89); GLUCOSE,RANDOM 171 MG/DL (74-106); SODIUM (NA) 143 MEQ/L (136-145)
[2017-12-24 04:50] LABS: ALKALINE PHOSPHATASE 68 U/L (45-117); ALT (GPT) 20 U/L (12-78); PHOSPHORUS 2.2 MG/DL (2.5-4.9); TOTAL BILIRUBIN ADULT 0.3 MG/DL (0.2-1.0); TOTAL PROTEIN 6.3 GM/DL (6.4-8.2)
--- NOTE | 2017-12-24 05:36 | RADRPT ---
EXAM DATE/TIME: 12/24/2017 03:31 [place] COMPARISON: CHEST SINGLE AP, December 23, 2017, 10:16. INDICATIONS : Short of breath. MEDICAL HISTORY : Chronic obstructive pulmonary disease. SURGICAL HISTORY : None. ENCOUNTER: Subsequent ACUITY: 4 - 6 days PAIN SCORE: 0/10 LOCATION: Bilateral chest FINDINGS: A single view of the chest demonstrates the lungs to be symmetrically aerated without evidence of mas s, infiltrate or effusion. The endotracheal tube and nasogastric both in good position The cardiomedi astinal contours are unremarkable. Osseous structures are intact. Left humerus has been fixated CONCLUSION: Normal examination. ET tube and NG tube in good position. Fransico Malhotra MD on December 24, 2017 at 5:34 Board Certified Radiologist. This report was verified electronically.
[2017-12-24] MEDS: RESP: BUDESONIDE 0.5 MG/2 ML NEB NEB SCH ×2 (07:26→20:52)
--- NOTE | 2017-12-24 07:48 | HHI.CCPN ---
Subjective Remarks/Hospital Course 12/23: This is a 59-year-old male. The admission 12/23/2017. Past medical history includes oxygen dependent COPD, hypertension, dyslipidemia and morbid obesity. This patient presents to the [facility] emergency department having been found by EMS in his apartment in respiratory distress imminent respiratory failure patient was trying to use his nebulizer machine but was in severe respiratory distress. Is unclear how long the duration has been short of breath. He is recently admitted to [facility] in November with similar findings of COPD. EMS got him out to the ambulance but he was becoming increasingly lethargic so the decision was made to intubate the patient. He was given etomidate and midazolam. The intubation was uncomplicated per ER records. He was given a bronchodilator treatment and IV steroids in the field. Chest x-ray revealed no acute cardiopulmonary findings. Patient is currently on a propofol drip and seen in room E 50. Minimally responsive on the ventilator. OG-tube is in place. 12/24: No events over the night. T-max of 99.1. Urine output is appropriate, 1850 mL's over the last 24 hours. Patient is sedated, on propofol and fentanyl infusions. No family present at bedside. ROS: -Unobtainable, patient is intubated. Objective Vital Signs Date Time Temp Pulse Resp B/P (MAP) Pulse Ox O2 Delivery O2 Flow Rate FiO2 12/24/17 07:27 96 45 12/24/17 04:00 98.1 104 23 136/67 (90) 12/23/17 16:34 Auto-Vent Intake and Output 12/24/17 12/24/17 12/25/17 08:00 16:00 00:00 Intake Total 1200 ml Output Total 850 ml Balance 350 ml Result Diagram: 12/24/17 0347 12/24/17 0347 Other Results Microbiology Date/Time Source Procedure Growth Status 12/23/17 12:45 Nasal Aspirate Influenza Types A,B Antigen ([place]) - Final NEGATIVE FOR FLU A AND B ANTIGEN.... Complete 12/23/17 10:20 Urine Catheterized Urine Legionella Antigen - Final PRESUMPTIVE NEGATIVE FOR LEGIONELLA P... Complete 12/23/17 10:20 Urine Catheterized Urine Streptococcus pneumoniae Antigen (M - Final PRESUMPTIVE NEGATIVE FOR STREPTOCOCCU... Complete Laboratory Tests Test 12/23/17 10:41 12/24/17 06:14 Blood Gas Puncture Site RT RADIAL RT RADIAL Blood Gas Patient Temperature 98.6 98.6 Blood Gas HCO3 29 mmol/L (22-26) 30 mmol/L (22-26) Blood Gas Base Excess 2.3 mmol/L (-2-2) 5.2 mmol/L (-2-2) Blood Gas Oxygen Saturation 98 % (90-100) 94 % (90-100) Arterial Blood pH 7.26 (7.380-7.420) 7.42 (7.380-7.420) Arterial Blood Partial Pressure CO2 67 mmHg (38-42) 47 mmHg (38-42) Arterial Blood Partial Pressure O2 262 mmHG (61-120) 80 mmHg (61-120) Arterial Blood Oxygen Content 18.4 Vol % (12.0-20.0) 16.4 Vol % (12.0-20.0) Arterial Blood Carboxyhemoglobin 1.1 % (0-4) 1.0 % (0-4) Arterial Blood Methemoglobin 0.8 % (0-2) 1.4 % (0-2) Blood Gas Hemoglobin 12.9 G/DL (12.0-16.0) 12.4 G/DL (12.0-16.0) Oxygen Delivery Device VENTILATOR VENTILATOR Blood Gas Ventilator Setting 16/550/+5 SEE COMMENTS Blood Gas Inspired Oxygen 70 % 50 % Imaging Last 24 hours Impressions Chest X-Ray 12/24/17 0600 Signed Impressions: Service Date/Time: Sunday, December 24, 2017 03:31 - CONCLUSION: Normal examination. ET tube and NG tube in good position. Fransico Malhotra MD Chest X-Ray 12/23/17 0904 Signed Impressions: Service Date/Time: Saturday, December 23, 2017 10:16 - CONCLUSION: ET good position. Cannot see tip of nasogastric tube. Chalo Larios MD FACR Last Impressions Chest X-Ray 12/23/17958 Signed Impressions: Service Date/Time: Saturday, December 23, 2017 10:16 - CONCLUSION: ET good position. Cannot see tip of nasogastric tube. Chalo Larios MD FACR Objective Remarks GENERAL: Elderly gentleman, intubated and sedated, ill-appearing. SKIN: Warm and dry. No rash. Areas of ecchymoses bilateral lower extremities. HEAD: Atraumatic. Normocephalic. EYES: Pupils are equal and reactive. No scleral icterus. No injection or drainage. ENT: No nasal bleeding or discharge. Mucous membranes pink and moist. Orally intubated. NECK: Trachea midline. No neck vein distention. CARDIOVASCULAR: Heart sounds are regular, no murmurs appreciated. RESPIRATORY: Improved air entry bilateral, no wheezes, no rales. GASTROINTESTINAL: Abdomen soft, not distended, appears nontender. Bowel sounds present. No hepatomegaly, no splenomegaly. MUSCULOSKELETAL: Warm and well-perfused. No edema. Peripheral pulses present. NEUROLOGICAL: Patient is intubated and sedated. Pupils are equal and reactive. Does not open eyes to voice stimuli and he does not follow commands. A/P Assessment and Plan 1. Acute on chronic hypercapnic and hypoxic respiratory failure 2. Acute COPD exacerbation 3. Chronic prednisone use 4. GALEN 5. Diabetes 6. History of hypertension 7. Leukocytosis -trending down 1. Continue PRVC at current settings. Patient is synchronized with the vent, no auto PEEP, PIP 20 2. Vent bundle and bronchodilators 3. Stop sedation and will attempt SBT 4. Continue steroids 5. Budesonide/formoterol 160/4.5 2 puffs twice daily 6. Currently holding home medications of carvedilol 6.25 mg p.o. twice daily nifedipine extended release 60 mg p.o. daily. Resume if clinically indicated 7. Sliding scale insulin with Novulin N with Accu-Cheks every 6 hours to maintain euglycemia/medium regimen 8. Patient is on metformin 500 mg twice daily at home. This is currently on hold 9. Lansoprazole for GI prophylaxis and docusate sodium/senna 1 tablet twice daily for bowel regimen 10. Placed on empiric ceftriaxone and azithromycin day #2 11. DVT prophylaxis with heparin and SCD's Level 3 follow-up Juan North MD December 24, 2017 07:48
[2017-12-24] MEDS: DOCUSATE SODIUM 50 MG/SENNA 8.6 MG TAB PO SCH ×2 (08:12→20:31)
[2017-12-24] MEDS: LANSOPRAZOLE SOLUTAB 30 MG TAB G-TUBE SCH (08:12)
[2017-12-24] MEDS: SODIUM CHLORIDE 0.9% FLUSH 10 ML FLUSH IV FLUSH SCH ×2 (08:12→20:31)
[2017-12-24] MEDS: CHLORHEXIDINE 0.12% (ORAL KIT) 15 ML CUP MT SCH ×2 (08:13→20:00)
--- NOTE | 2017-12-24 11:05 | PD.CONS ---
Consult Service Palliative Care Consult Requested By Dr. North . [facility] Reason for Consultation a. To assist with evaluation and management of symptoms including: Dyspnea, b. To assist medical decision maker(s) with: better understanding of current medical conditions; weighing benefits/burdens of medical treatment options; making medical treatment decisions. Past Family Social History Coded Allergies: No Known Allergies (Unverified Allergy, Unknown, 09/25/17) Past Medical History Oxygen dependent COPD Diabetes mellitus Hypertension Elevated BMI . Past Surgical History Left humerus fracture from a, status post surgery Reported Medications Reported Meds & Active Scripts Active Prednisone 20 Mg Tab 40 Mg PO DAILY Cefuroxime (Cefuroxime Axetil) 500 Mg Tab 500 Mg PO Q12HR Prednisone 50 Mg Tab 50 Mg PO DAILY Fluticasone Nasal [place] 50 Mcg/Act Naspr 1 [place] NASAL BID 50 mcg/spray Propranolol (Propranolol HCl) 20 Mg Tab 20 Mg PO Q12HR Amoxicillin-Clavulanate 875-125 mg Tab 875 Mg PO Q12H not for use in CrCl <30 mL/minute Coreg (Carvedilol) 6.25 Mg Tab 6.25 Mg PO Q12HR Ventolin Hfa 18 GM Inh (Albuterol Sulfate) 90 Mcg/Act Aer 2 Puff INH Q4-6H PRN Metformin (Metformin HCl) 500 Mg Tab 500 Mg PO BIDPC With meals Symbicort Inh (Budesonide/Formoterol Fumarate) 160-4.5 Mcg/Act Aero 1 Puff INH Q12HR 30 Days Nifedipine ER 24 HR (Nifedipine) 60 Mg Tab 60 Mg PO DAILY Current Medications Medications (Trade) Dose Ordered Sig/Justina Route Start Time Stop Time Status Last Admin (NS Flush) 2 ml UNSCH PRN IV FLUSH 12/23/17 11:45 (NS Flush) 2 ml BID IV FLUSH 12/23/17 21:00 12/24/17 08:12 (Prevacid Odt) 30 mg DAILY G-TUBE 12/24/17 09:00 12/24/17 08:12 (Zofran Inj) 4 mg Q6H PRN IV PUSH 12/23/17 11:45 (Duoneb Neb) 1 ampule Q4HR NEB INH 12/23/17 12:00 12/24/17 10:43 (Albuterol Neb) 2.5 mg Q2HR NEB PRN INH 12/23/17 11:45 (Heparin Inj) 5,000 units Q8H SQ 12/23/17 13:00 12/24/17 04:17 ([facility]) 1 Q361D XX 12/23/17 11:45 (Chlorhexidine 2% Cloth) 3 pack Taper DAILY@04 TOP 12/24/17 04:00 12/20/18 03:59 12/24/17 04:00 (Chlorhexidine 2% Cloth) 3 pack UNSCH PRN TOP 12/23/17 11:45 (Ashley-Colace) 1 tab BID PO 12/23/17 21:00 12/24/17 08:12 (Milk Of Magnesia Liq) 30 ml Q12H PRN PO 12/23/17 11:45 (Senokot) 17.2 mg Q12H PRN PO 12/23/17 11:45 (Dulcolax Supp) 10 mg DAILY PRN RECTAL 12/23/17 11:45 (Lactulose Liq) 30 ml DAILY PRN PO 12/23/17 11:45 (Peridex 0.12% Liq) 15 ml BID@08,20 MT 12/23/17 20:00 12/24/17 08:13 Propofol 100 ml @ 2.85 mls/hr TITRATE PRN IV 12/23/17 11:45 12/24/17 08:13 Fentanyl Citrate 250 ml @ 5 mls/hr TITRATE PRN IV 12/23/17 11:45 (Tears Naturale Opth Soln) 1 drop Q8HR EACH EYE 12/23/17 14:00 12/24/17 04:17 (Tylenol 650 Mg/ 20 ml Liq) 650 mg Q6H PRN PO 12/23/17 12:00 Potassium Chloride 100 ml @ 50 mls/hr Q2H PRN IV 12/23/17 12:00 Potassium Chloride 100 ml @ 50 mls/hr Q2H PRN IV 12/23/17 12:00 (K-Lyte Cl Eff) 50 meq UNSCH PRN PO 12/23/17 12:00 Potassium Chloride 100 ml @ 25 mls/hr UNSCH PRN IV 12/23/17 12:00 Potassium Chloride 100 ml @ 50 mls/hr Q2H PRN IV 12/23/17 12:00 Magnesium Sulfate 4 gm/Sodium Chloride 100 ml @ 50 mls/hr UNSCH PRN IV 12/23/17 12:00 (Mag-Ox) 800 mg UNSCH PRN PO 12/23/17 12:00 Magnesium Sulfate 2 gm/Sodium Chloride 100 ml @ 50 mls/hr UNSCH PRN IV 12/23/17 12:00 (K-Phos) 2,000 mg Q4H PRN PO 12/23/17 12:00 Sodium Phosphate 30 mmol/Sodium Chloride 250 ml @ 42 mls/hr UNSCH PRN IV 12/23/17 12:00 12/24/17 05:26 (K-Phos) 2,000 mg UNSCH PRN PO/TUBE 12/23/17 12:00 Potassium Phosphate 30 mmol/ Sodium Chloride 260 ml @ 42 mls/hr UNSCH PRN IV 12/23/17 12:00 (D50w (Vial) Inj) 50 ml UNSCH PRN IV PUSH 12/23/17 12:00 (Glucagon Inj) 1 mg UNSCH PRN OTHER 12/23/17 12:00 (NovoLIN R SUPPLEMENTAL SCALE) 1 Q6HR SQ 12/23/17 12:00 12/23/17 12:37 (SoluMEDROL INJ) 40 mg Q8HR IV PUSH 12/23/17 14:00 12/24/17 04:17 (Pulmicort Respule Neb) 0.5 mg Q12HR NEB NEB 12/23/17 20:00 12/24/17 07:26 Ceftriaxone Sodium 1000 mg/ Sodium Chloride 100 ml @ 200 mls/hr Q24H IV 12/23/17 13:00 12/23/17 12:46 Azithromycin 500 mg/Sodium Chloride 250 ml @ 250 mls/hr Q24H IV 12/23/17 14:00 12/23/17 14:23 Lactated Ringer's 1,000 ml @ 100 mls/hr Q10H IV 12/23/17 19:00 12/24/17 04:17 Family History He has been estranged from his family for over 30 years he has no knowledge of the medical history. . Substance Use Tobacco: Smoked 2 packs per day for most of his life, quit 3 years ago. Alcohol: Denies. Prescription med abuse: Denies. Illicits: Denies. . Physical Exam Vital Signs Date Time Temp Pulse Resp B/P (MAP) Pulse Ox O2 Delivery O2 Flow Rate FiO2 12/24/17 10:15 98 35 12/24/17 10:15 98 BiPAP/CPAP 35 12/24/17 08:38 40 12/24/17 07:27 96 45 12/24/17 04:18 100 50 12/24/17 04:00 98.1 104 23 136/67 (90) 100 12/24/17 04:00 50 12/24/17 04:00 104 12/24/17 02:00 100 12/24/17 00:12 98 50 12/24/17 00:00 50 12/24/17 00:00 99.1 102 22 143/64 (90) 98 12/24/17 00:00 102 12/23/17 22:00 102 12/23/17 21:18 98 50 12/23/17 20:00 50 12/23/17 20:00 95 12/23/17 20:00 98.7 95 19 147/70 (95) 99 12/23/17 19:30 95 19 154/73 (100) 100 12/23/17 19:15 97 19 157/74 (101) 100 12/23/17 19:00 96 18 157/74 (101) 100 12/23/17 18:45 96 18 156/73 (100) 100 12/23/17 18:30 92 18 147/69 (95) 100 12/23/17 18:15 90 18 149/69 (95) 100 12/23/17 18:00 94 19 149/64 (92) 100 12/23/17 17:15 98.9 103 21 161/84 (109) 100 12/23/17 17:12 105 12/23/17 17:12 12/23/17 17:00 50 12/23/17 16:34 92 16 148/73 (98) 100 Auto-Vent 12/23/17 15:30 97 16 139/65 (89) 99 Auto-Vent 12/23/17 14:35 99 50 12/23/17 14:21 93 16 139/64 (89) 99 Auto-Vent 12/23/17 13:35 92 16 126/60 (82) 100 Auto-Vent 12/23/17 12:33 88 16 126/60 (82) 100 Auto-Vent 5/7/18 11:57 100 50 12/23/17 11:42 90 18 121/68 (85) 100 Auto-Vent 12/23/17 11:07 96 16 157/72 (100) 100 Auto-Vent 12/23/17 10:58 50 Exam CONSTITUTIONAL/GENERAL: This is an adequately nourished patient, in no apparent distress. TUBES/LINES/DRAINS: SKIN: No jaundice, rashes, or lesions. Ecchymoses on upper extremities. No wounds seen anteriorly. Skin temperature appropriate. Not diaphoretic. HEAD: Atraumatic. Normocephalic. EYES: Pupils equal and round and reactive. Extraocular motions intact. No scleral icterus. No injection or drainage. Fundi not examined. ENT: Hearing grossly normal. Nose without bleeding or purulent drainage. Throat without visible erythema, exudates, masses, or lesions. NECK: Trachea midline. Supple, nontender. No palpable thyroid enlargement or nodularity. CARDIOVASCULAR: Regular rate and rhythm without murmurs, gallops, or rubs. No JVD. Peripheral pulses symmetric. RESPIRATORY/CHEST: Symmetric, unlabored respirations. Clear to auscultation. Breath sounds equal bilaterally. No wheezes, rales, or rhonchi. GASTROINTESTINAL: Abdomen soft, non-tender, nondistended. No hepato-splenomegaly , or palpable masses. No guarding. Bowel sounds present. GENITOURINARY: Without palpable bladder distension. Yee catheter in place. MUSCULOSKELETAL: Extremities without clubbing, cyanosis, or edema. No joint tenderness or effusion noted. No calf tenderness. No mottling or clubbing. LYMPHATICS: No palpable cervical or supraclavicular adenopathy. NEUROLOGICAL: Awake and alert. Motor and sensory grossly within normal limits. Follows commands. Cognitively sharp. Moves all extremities. PSYCHIATRIC: No obvious anxiety/depression. no apparent hallucinations or other psychotic thought process. Diagnostic Tests Laboratory Laboratory Tests Test 12/23/17 10:15 12/23/17 10:20 12/23/17 10:41 12/23/17 17:45 White Blood Count 11.6 TH/MM3 (4.0-11.0) Red Blood Count 4.64 MIL/MM3 (4.50-5.90) Hemoglobin 13.9 GM/DL (13.0-17.0) Hematocrit 42.4 % (39.0-51.0) Mean Corpuscular Volume 91.6 FL (80.0-100.0) Mean Corpuscular Hemoglobin 30.1 PG (27.0-34.0) Mean Corpuscular Hemoglobin Concent 32.8 % (32.0-36.0) Red Cell Distribution Width 14.6 % (11.6-17.2) Platelet Count 289 TH/MM3 (150-450) Mean Platelet Volume 9.2 FL (7.0-11.0) Neutrophils (%) (Auto) 64.0 % (16.0-70.0) Lymphocytes (%) (Auto) 22.8 % (9.0-44.0) Monocytes (%) (Auto) 9.0 % (0.0-8.0) Eosinophils (%) (Auto) 3.7 % (0.0-4.0) Basophils (%) (Auto) 0.5 % (0.0-2.0) Neutrophils # (Auto) 7.4 TH/MM3 (1.8-7.7) Lymphocytes # (Auto) 2.6 TH/MM3 (1.0-4.8) Monocytes # (Auto) 1.0 TH/MM3 (0-0.9) Eosinophils # (Auto) 0.4 TH/MM3 (0-0.4) Basophils # (Auto) 0.1 TH/MM3 (0-0.2) CBC Comment DIFF FINAL Differential Comment Blood Urea Nitrogen 14 MG/DL (7-18) Creatinine 1.18 MG/DL (0.60-1.30) Random Glucose 171 MG/DL (74-106) Total Protein 7.0 GM/DL (6.4-8.2) Albumin 3.3 GM/DL (3.4-5.0) Calcium Level 8.4 MG/DL (8.5-10.1) Alkaline Phosphatase 84 U/L (45-117) Aspartate Amino Transf (AST/SGOT) 30 U/L (15-37) Alanine Aminotransferase (ALT/SGPT) 26 U/L (12-78) Total Bilirubin 0.6 MG/DL (0.2-1.0) Sodium Level 144 MEQ/L (136-145) Potassium Level 4.2 MEQ/L (3.5-5.1) Chloride Level 108 MEQ/L (98-107) Carbon Dioxide Level 28.9 MEQ/L (21.0-32.0) Anion Gap 7 MEQ/L (5-15) Estimat Glomerular Filtration Rate 61 ML/MIN (>89) Phosphorus Level 4.3 MG/DL (2.5-4.9) Urine Color LIGHT-YELLOW (YELLW/STRAW) Urine Turbidity CLEAR (CLEAR) Urine pH 6.5 (5.0-8.5) Urine Specific Ary 1.018 (1.002-1.035) Urine Protein 30 mg/dL (NEG-TRACE) Urine Glucose (UA) NEG mg/dL (NEG) Urine Ketones NEG mg/dL (NEG) Urine Occult Blood NEG (NEG) Urine Nitrite NEG (NEG) Urine Bilirubin NEG (NEG) Urine Urobilinogen LESS THAN 2.0 MG/DL (LESS Urine Leukocyte Esterase NEG (NEG) Urine RBC 1 /hpf (0-3) Urine WBC LESS THAN 1 /hpf (0-5) Urine Squamous Epithelial Cells <1 /hpf (0-5) Urine Mucus FEW /lpf (OCC) Microscopic Urinalysis Comment CATH-CULT NOT IND Blood Gas Puncture Site RT RADIAL Blood Gas Patient Temperature 98.6 Blood Gas HCO3 29 mmol/L (22-26) Blood Gas Base Excess 2.3 mmol/L (-2-2) Blood Gas Oxygen Saturation 98 % (90-100) Arterial Blood pH 7.26 (7.380-7.420) Arterial Blood Partial Pressure CO2 67 mmHg (38-42) Arterial Blood Partial Pressure O2 262 mmHG (61-120) Arterial Blood Oxygen Content 18.4 Vol % (12.0-20.0) Arterial Blood Carboxyhemoglobin 1.1 % (0-4) Arterial Blood Methemoglobin 0.8 % (0-2) Blood Gas Hemoglobin 12.9 G/DL (12.0-16.0) Oxygen Delivery Device VENTILATOR Blood Gas Ventilator Setting 16/550/+5 Blood Gas Inspired Oxygen 70 % Nasal Screen MRSA (PCR) MRSA NOT DETECTED (NOT Test 12/24/17 03:47 12/24/17 06:14 White Blood Count 9.1 TH/MM3 (4.0-11.0) Red Blood Count 4.45 MIL/MM3 (4.50-5.90) Hemoglobin 13.2 GM/DL (13.0-17.0) Hematocrit 39.9 % (39.0-51.0) Mean Corpuscular Volume 89.7 FL (80.0-100.0) Mean Corpuscular Hemoglobin 29.8 PG (27.0-34.0) Mean Corpuscular Hemoglobin Concent 33.2 % (32.0-36.0) Red Cell Distribution Width 14.2 % (11.6-17.2) Platelet Count 201 TH/MM3 (150-450) Mean Platelet Volume 9.2 FL (7.0-11.0) Neutrophils (%) (Auto) 92.2 % (16.0-70.0) Lymphocytes (%) (Auto) 6.5 % (9.0-44.0) Monocytes (%) (Auto) 1.3 % (0.0-8.0) Eosinophils (%) (Auto) 0.0 % (0.0-4.0) Basophils (%) (Auto) 0.0 % (0.0-2.0) Neutrophils # (Auto) 8.4 TH/MM3 (1.8-7.7) Lymphocytes # (Auto) 0.6 TH/MM3 (1.0-4.8) Monocytes # (Auto) 0.1 TH/MM3 (0-0.9) Eosinophils # (Auto) 0.0 TH/MM3 (0-0.4) Basophils # (Auto) 0.0 TH/MM3 (0-0.2) CBC Comment DIFF FINAL Differential Comment Prothrombin Time 10.4 SEC (9.8-11.6) Prothromb Time International Ratio 1.0 RATIO Activated Partial Thromboplast Time 24.1 SEC (24.3-30.1) Blood Urea Nitrogen 15 MG/DL (7-18) Creatinine 1.14 MG/DL (0.60-1.30) Random Glucose 171 MG/DL (74-106) Total Protein 6.3 GM/DL (6.4-8.2) Albumin 3.0 GM/DL (3.4-5.0) Calcium Level 8.7 MG/DL (8.5-10.1) Phosphorus Level 2.2 MG/DL (2.5-4.9) Magnesium Level 2.0 MG/DL (1.5-2.5) Alkaline Phosphatase 68 U/L (45-117) Aspartate Amino Transf (AST/SGOT) 15 U/L (15-37) Alanine Aminotransferase (ALT/SGPT) 20 U/L (12-78) Total Bilirubin 0.3 MG/DL (0.2-1.0) Sodium Level 143 MEQ/L (136-145) Potassium Level 3.9 MEQ/L (3.5-5.1) Chloride Level 106 MEQ/L (98-107) Carbon Dioxide Level 29.8 MEQ/L (21.0-32.0) Anion Gap 7 MEQ/L (5-15) Estimat Glomerular Filtration Rate 64 ML/MIN (>89) Lactic Acid Level 1.2 mmol/L (0.4-2.0) Blood Gas Puncture Site RT RADIAL Blood Gas Patient Temperature 98.6 Blood Gas HCO3 30 mmol/L (22-26) Blood Gas Base Excess 5.2 mmol/L (-2-2) Blood Gas Oxygen Saturation 94 % (90-100) Arterial Blood pH 7.42 (7.380-7.420) Arterial Blood Partial Pressure CO2 47 mmHg (38-42) Arterial Blood Partial Pressure O2 80 mmHg (61-120) Arterial Blood Oxygen Content 16.4 Vol % (12.0-20.0) Arterial Blood Carboxyhemoglobin 1.0 % (0-4) Arterial Blood Methemoglobin 1.4 % (0-2) Blood Gas Hemoglobin 12.4 G/DL (12.0-16.0) Oxygen Delivery Device VENTILATOR Blood Gas Ventilator Setting SEE COMMENTS Blood Gas Inspired Oxygen 50 % Result Diagram: 12/24/17 0347 12/24/17346 Microbiology Microbiology Date/Time Source Procedure Growth Status 12/23/17 12:40 Blood Peripheral Aerobic Blood Culture Pending Received 12/23/17 12:40 Blood Peripheral Anaerobic Blood Culture Pending Received 12/23/17 12:30 Blood Peripheral Aerobic Blood Culture Pending Received 12/23/17 12:30 Blood Peripheral Anaerobic Blood Culture Pending Received 12/23/17 12:45 Nasal Aspirate Influenza Types A,B Antigen ([place]) - Final NEGATIVE FOR FLU A AND B ANTIGEN.... Complete 12/23/17 10:20 Urine Catheterized Urine Legionella Antigen - Final PRESUMPTIVE NEGATIVE FOR LEGIONELLA P... Complete 12/23/17 10:20 Urine Catheterized Urine Streptococcus pneumoniae Antigen (M - Final PRESUMPTIVE NEGATIVE FOR STREPTOCOCCU... Complete Patient/Family Conference Issues Discussed: * Palliative care role, purpose, approach * Additional medical, psychosocial, and spiritual history * Patients general health, functional status, and cognitive changes in the months leading up to the current hospitalization * Patient/family understanding of the current medical problems * Patient/family understanding of prognosis * Patients goals of care as best understood from advance directives and/or conversations and/or values * Current medical treatment options and benefits/burdens of those options * Likely scenarios comparing ongoing aggressive care with a transition to comfort measures only * Questions answered to the best of my ability * Palliative care contact information provided Assessment and Plan Pertinent Non-Medical Issues Psychosocial: Spiritual: Legal: Ethical issues impacting care: Thank you for the opportunity to participate in the care of Mr. Li. Gilma Washington December 24, 2017 11:05 am
[2017-12-24] MEDS: cefTRIAXone INJ 1,000 MG in SODIUM CHLORIDE 0.9% INJ 100 ML IV SCH (12:57)
--- NOTE | 2017-12-24 13:05 | PD.CONS ---
Consult Service Palliative Care Consult Requested By Dr. North Primary Care Physician [facility] Reason for Consultation a. To assist with evaluation and management of symptoms including: Dyspnea, cough, anxiety b. To assist medical decision maker(s) with: better understanding of current medical conditions; weighing benefits/burdens of medical treatment options; making medical treatment decisions. HPI History of Present Illness This is a 67-year-old male who summoned EVAC to his apartment for respiratory distress. Upon arrival EVAC found him trying to use his nebulizer machine but in severe respiratory distress. As he was being transported to the ambulance he became increasingly lethargic and the decision was made for intubation. He received etomidate and Versed for an uncomplicated intubation and receiving bronchodilator treatment and IV steroids in the field. Upon arrival to the emergency room he was found to have a white blood cell count of 11.6, hemoglobin 13.9, hematocrit 42.4, platelets 289, sodium 144, potassium 4.2 , BUN 14, creatinine 1.18, glucose 171, arterial blood gas pH 7.26, PCO2 67, PO2 262, HCO3 29, base excess positive, oxygen saturation 98% on 70% FiO2. Chest x-ray showed ET tube in good position with no visible NG tube tip. Critical care service was consulted and the patient was seen by Dr. Branch. He was placed on a propofol drip for sedation/analgesia/vent synchrony and admitted to the intensive care. He was given nebulizer treatments, budesonide, methylprednisolone and empiric antibiotics. Blood cultures, sputum cultures, urine culture and influenza screen was initiated. Influenza screen was negative. Blood cultures show no growth 1 day. Urine culture was negative for Legionella or strep pneumonia. On 12/24, he was followed by who deemed him stable for extubation and he is seen at this visit on 3 L nasal cannula, as he was intolerant of the BiPAP mask. Upon extubation, the patient said "I want to " and then subsequently said "I want to live, it was a bad dream ", thusly, palliative care was consulted to assist patient in clarification of goals of care. He states to me that his dyspnea is chronic, constant, limiting much of his activities. He is pursed lip breathing and has to pause frequently to catch his breath. He uses minimal words to answer questions due to his dyspnea.He is on continuous home O2 and frequently feels "air hunger" which exacerbates his anxiety. He describes his cough as intermittent, of moderate frequency, worse at night, dry, non-productive, hacking quality. His anxiety is constant, worsened by his dyspnea and air hunger. It is exacerbated by his isolation, as he lives alone. Some of his answers are conflicting and he appears to have difficulty with remembering. While he can remember that it is 2018, Jessica is president and he is in [facility], he repeats questions which have been answered short time earlier. He is not clearly capacitated nor clearly incapacitated. . Function/Cognitive Trajectory He has been seen in [place] 3 times in 2018 for progressively worsening dyspnea. He has chronic COPD on home oxygen and has difficulty navigating stairs leading to his apartment due to air hunger and dyspnea. He has no known family as he has been estranged from them for 30 years so lacks a support system. He has one friend that he named as a contact who is reported to be his landlord. Given his isolation and debility, he is at high risk for continued decline. . Review of Systems ROS Limitations: Uncooperative Constitutional: COMPLAINS OF: Generalized weakness Endocrine: DENIES: Heat/cold intolerance, Polydipsia, Polyuria, Polyphagia Eyes: DENIES: Blurred vision, Diplopia, Eye inflammation, Eye pain, Vision loss , Photosensitivity, Double Vision, Blind spots Ears, nose, mouth, throat: DENIES: Tinnitus, Hearing loss, Vertigo, Nasal discharge, Oral lesions, Throat pain, Hoarseness, Ear Pain, Running Nose, Epistaxis, Sinus Pain, Toothache, Odynophagia Respiratory: COMPLAINS OF: Cough, Shortness of breath Cardiovascular: COMPLAINS OF: Chest pain (Chest pressure with cough) Gastrointestinal: DENIES: Abdominal pain, Black stools, Bloody stools, Constipation, Diarrhea, Nausea, Vomiting, Difficulty Swallowing, Anorexia, Dyspepsia or heartburn, Excessive gas, Bloating, Vomiting blood Genitourinary: DENIES: Sexual dysfunction, Urinary frequency, Urinary incontinence, Urgency, Hematuria, Dysuria, Nocturia, Penile Discharge, Testicular Pain, Testicular Swelling, Hesitancy, Dribbling, Decreased stream Musculoskeletal: DENIES: Joint pain, Muscle aches, Stiffness, Joint Swelling, Back pain, Neck pain, Decreased range of motion Integumentary: DENIES: Abnormal pigmentation, Nail changes, Pruritus, Rash, Nodules, Tumors, Excessive dryness, Non-healing sores Hematologic/Lymphatics: DENIES: Bruising, Lymphadenopathy, Prolonged bleed w/ proced, History of transfusions Immunologic/Allergic: DENIES: Eczema, Urticaria Neurologic: COMPLAINS OF: Tremor Psychiatric: COMPLAINS OF: Anxiety Past Family Social History Coded Allergies: No Known Allergies (Unverified Allergy, Unknown, 09/25/17) Past Medical History Oxygen dependent COPD Diabetes mellitus Hypertension Elevated BMI . Past Surgical History Left humerus fracture from a, status post surgery Reported Medications Reported Meds & Active Scripts Active Prednisone 20 Mg Tab 40 Mg PO DAILY Cefuroxime (Cefuroxime Axetil) 500 Mg Tab 500 Mg PO Q12HR Prednisone 50 Mg Tab 50 Mg PO DAILY Fluticasone Nasal R[place] 50 Mcg/Act Naspr 1 [place] NASAL BID 50 mcg/spray Propranolol (Propranolol HCl) 20 Mg Tab 20 Mg PO Q12HR Amoxicillin-Clavulanate 875-125 mg Tab 875 Mg PO Q12H not for use in CrCl <30 mL/minute Coreg (Carvedilol) 6.25 Mg Tab 6.25 Mg PO Q12HR Ventolin Hfa 18 GM Inh (Albuterol Sulfate) 90 Mcg/Act Aer 2 Puff INH Q4-6H PRN Metformin (Metformin HCl) 500 Mg Tab 500 Mg PO BIDPC With meals Symbicort Inh (Budesonide/Formoterol Fumarate) 160-4.5 Mcg/Act Aero 1 Puff INH Q12HR 30 Days Nifedipine ER 24 HR (Nifedipine) 60 Mg Tab 60 Mg PO DAILY Current Medications Medications (Trade) Dose Ordered Sig/Justina Route Start Time Stop Time Status Last Admin (NS Flush) 2 ml UNSCH PRN IV FLUSH 12/23/17 11:45 (NS Flush) 2 ml BID IV FLUSH 12/23/17 21:00 12/24/17 08:12 (Prevacid Odt) 30 mg DAILY G-TUBE 12/24/17 09:00 12/24/17 08:12 (Zofran Inj) 4 mg Q6H PRN IV PUSH 12/23/17 11:45 (Duoneb Neb) 1 ampule Q4HR NEB INH 12/23/17 12:00 12/24/17 10:43 (Albuterol Neb) 2.5 mg Q2HR NEB PRN INH 12/23/17 11:45 (Heparin Inj) 5,000 units Q8H SQ 12/23/17 13:00 12/24/17 04:17 ([facility] Information) 1 Q361D XX 12/23/17 11:45 (Chlorhexidine 2% Cloth) 3 pack Taper DAILY@04 TOP 12/24/17 04:00 12/20/18 03:59 12/24/17 04:00 (Chlorhexidine 2% Cloth) 3 pack UNSCH PRN TOP 12/23/17 11:45 (Ashley-Colace) 1 tab BID PO 12/23/17 21:00 12/24/17 08:12 (Milk Of Magnesia Liq) 30 ml Q12H PRN PO 12/23/17 11:45 (Senokot) 17.2 mg Q12H PRN PO 12/23/17 11:45 (Dulcolax Supp) 10 mg DAILY PRN RECTAL 12/23/17 11:45 (Lactulose Liq) 30 ml DAILY PRN PO 12/23/17 11:45 (Peridex 0.12% Liq) 15 ml BID@08,20 MT 12/23/17 20:00 12/24/17 08:13 Propofol 100 ml @ 2.85 mls/hr TITRATE PRN IV 12/23/17 11:45 12/24/17 08:13 Fentanyl Citrate 250 ml @ 5 mls/hr TITRATE PRN IV 12/23/17 11:45 (Tears Naturale Opth Soln) 1 drop Q8HR EACH EYE 12/23/17 14:00 12/24/17 04:17 (Tylenol 650 Mg/ 20 ml Liq) 650 mg Q6H PRN PO 12/23/17 12:00 Potassium Chloride 100 ml @ 50 mls/hr Q2H PRN IV 12/23/17 12:00 Potassium Chloride 100 ml @ 50 mls/hr Q2H PRN IV 12/23/17 12:00 (K-Lyte Cl Eff) 50 meq UNSCH PRN PO 12/23/17 12:00 Potassium Chloride 100 ml @ 25 mls/hr UNSCH PRN IV 12/23/17 12:00 Potassium Chloride 100 ml @ 50 mls/hr Q2H PRN IV 12/23/17 12:00 Magnesium Sulfate 4 gm/Sodium Chloride 100 ml @ 50 mls/hr UNSCH PRN IV 12/23/17 12:00 (Mag-Ox) 800 mg UNSCH PRN PO 12/23/17 12:00 Magnesium Sulfate 2 gm/Sodium Chloride 100 ml @ 50 mls/hr UNSCH PRN IV 12/23/17 12:00 (K-Phos) 2,000 mg Q4H PRN PO 12/23/17 12:00 Sodium Phosphate 30 mmol/Sodium Chloride 250 ml @ 42 mls/hr UNSCH PRN IV 12/23/17 12:00 12/24/17 05:26 (K-Phos) 2,000 mg UNSCH PRN PO/TUBE 12/23/17 12:00 Potassium Phosphate 30 mmol/ Sodium Chloride 260 ml @ 42 mls/hr UNSCH PRN IV 12/23/17 12:00 (D50w (Vial) Inj) 50 ml UNSCH PRN IV PUSH 12/23/17 12:00 (Glucagon Inj) 1 mg UNSCH PRN OTHER 12/23/17 12:00 (NovoLIN R SUPPLEMENTAL SCALE) 1 Q6HR SQ 12/23/17 12:00 12/23/17 12:37 (SoluMEDROL INJ) 40 mg Q8HR IV PUSH 12/23/17 14:00 12/24/17 04:17 (Pulmicort Respule Neb) 0.5 mg Q12HR NEB NEB 12/23/17 20:00 12/24/17 07:26 Ceftriaxone Sodium 1000 mg/ Sodium Chloride 100 ml @ 200 mls/hr Q24H IV 12/23/17 13:00 12/23/17 12:46 Azithromycin 500 mg/Sodium Chloride 250 ml @ 250 mls/hr Q24H IV 12/23/17 14:00 12/23/17 14:23 Lactated Ringer's 1,000 ml @ 100 mls/hr Q10H IV 12/23/17 19:00 12/24/17 04:17 Family History He has been estranged from his family for over 30 years he has no knowledge of the medical history. . Substance Use Tobacco: Alcohol: Prescription med abuse: Illicits: Psychosocial History He was born in [place] and graduated high school there, and listing in the [employer] in 1970 and remaining there until 1997. He worked as a tank commander. He states he was never and had no children. He is reluctant to answer further questions. . Spiritual/Cultural Factors Mailmaster available, patient declines. . Living Will: Never completed Health Care Surrogate: Never completed Durable Power of Flask Cleaner: Never completed Date completed: Refuses. . Health Care Surrogate(s): Refuses to point anyone as healthcare surrogate. He states he would rather have a court appointed guardian then anyone that he knows in his life. He is estranged from all of his family for greater than 30 years. . Documented care wishes: He refuses the option of filling out a living will. . Today's verbally stated goals: He had previously stated today that he "wanted to ". He then said "it was just a bad dream" and that he would accept intubation and resuscitation again. . Family/friends goals: No family or friends at bedside. . Ethical and Legal Issues Patient refusing to a point a decision maker voluntarily. If decisions need to be made and patient unable, he prefers a court appointed guardian. . Physical Exam Vital Signs Date Time Temp Pulse Resp B/P (MAP) Pulse Ox O2 Delivery O2 Flow Rate FiO2 12/24/17 11:08 97 Nasal Cannula 3.00 12/24/17 10:15 98 35 12/24/17 10:15 98 BiPAP/CPAP 35 12/24/17 08:38 40 12/24/17 07:27 96 45 12/24/17 04:18 100 50 12/24/17 04:00 98.1 104 23 136/67 (90) 100 12/24/17 04:00 50 12/24/17 04:00 104 12/24/17 02:00 100 12/24/17 00:12 98 50 12/24/17 00:00 50 12/24/17 00:00 99.1 102 22 143/64 (90) 98 12/24/17 00:00 102 12/23/17 22:00 102 12/23/17 21:18 98 50 12/23/17 20:00 50 12/23/17 20:00 95 12/23/17 20:00 98.7 95 19 147/70 (95) 99 12/23/17 19:30 95 19 154/73 (100) 100 12/23/17 19:15 97 19 157/74 (101) 100 12/23/17 19:00 96 18 157/74 (101) 100 12/23/17 18:45 96 18 156/73 (100) 100 12/23/17 18:30 92 18 147/69 (95) 100 12/23/17 18:15 90 18 149/69 (95) 100 12/23/17 18:00 94 19 149/64 (92) 100 12/23/17 17:15 98.9 103 21 161/84 (109) 100 12/23/17 17:12 105 12/23/17 17:12 12/23/17 17:00 50 12/23/17 16:34 92 16 148/73 (98) 100 Auto-Vent 12/23/17 15:30 97 16 139/65 (89) 99 Auto-Vent 12/23/17 14:35 99 50 12/23/17 14:21 93 16 139/64 (89) 99 Auto-Vent 12/23/17 13:35 92 16 126/60 (82) 100 Auto-Vent 12/23/17 12:33 88 16 126/60 (82) 100 Auto-Vent Exam CONSTITUTIONAL/GENERAL: This is an adequately nourished patient, in no apparent distress. TUBES/LINES/DRAINS: Bilateral PIV's, Yee SKIN: No jaundice, rashes, or lesions. Ecchymoses on upper extremities. No wounds seen anteriorly. Skin temperature appropriate. Not diaphoretic. HEAD: Atraumatic. Normocephalic. EYES: Pupils equal and round and reactive. Extraocular motions intact. No scleral icterus. No injection or drainage. Fundi not examined. ENT: Mildly diminished hearing. Nose without bleeding or purulent drainage. Patient uncooperative with throat exam. NECK: Trachea midline. Supple, nontender. No palpable thyroid enlargement or nodularity. CARDIOVASCULAR: S1, S2, tachycardic rate, regular rhythm, no rub murmur or gallop. RESPIRATORY/CHEST: Symmetric, unlabored respirations. Lungs diminished, no wheezes crackles or rhonchi. GASTROINTESTINAL: Abdomen soft, non-tender, nondistended. No hepato-splenomegaly , or palpable masses. No guarding. Bowel sounds present. GENITOURINARY: Without palpable bladder distension. Yee catheter in place. MUSCULOSKELETAL: Extremities without clubbing, cyanosis, or edema. No joint tenderness or effusion noted. No calf tenderness. No mottling or clubbing. LYMPHATICS: No palpable cervical or supraclavicular adenopathy. NEUROLOGICAL: Awake and alert. Motor and sensory grossly within normal limits. Follows commands. Moves all extremities. PSYCHIATRIC: Somewhat uncooperative, visibly anxious. . Diagnostic Tests Laboratory Laboratory Tests Test 12/23/17 10:15 12/23/17 10:20 12/23/17 10:41 12/23/17 17:45 White Blood Count 11.6 TH/MM3 (4.0-11.0) Red Blood Count 4.64 MIL/MM3 (4.50-5.90) Hemoglobin 13.9 GM/DL (13.0-17.0) Hematocrit 42.4 % (39.0-51.0) Mean Corpuscular Volume 91.6 FL (80.0-100.0) Mean Corpuscular Hemoglobin 30.1 PG (27.0-34.0) Mean Corpuscular Hemoglobin Concent 32.8 % (32.0-36.0) Red Cell Distribution Width 14.6 % (11.6-17.2) Platelet Count 289 TH/MM3 (150-450) Mean Platelet Volume 9.2 FL (7.0-11.0) Neutrophils (%) (Auto) 64.0 % (16.0-70.0) Lymphocytes (%) (Auto) 22.8 % (9.0-44.0) Monocytes (%) (Auto) 9.0 % (0.0-8.0) Eosinophils (%) (Auto) 3.7 % (0.0-4.0) Basophils (%) (Auto) 0.5 % (0.0-2.0) Neutrophils # (Auto) 7.4 TH/MM3 (1.8-7.7) Lymphocytes # (Auto) 2.6 TH/MM3 (1.0-4.8) Monocytes # (Auto) 1.0 TH/MM3 (0-0.9) Eosinophils # (Auto) 0.4 TH/MM3 (0-0.4) Basophils # (Auto) 0.1 TH/MM3 (0-0.2) CBC Comment DIFF FINAL Differential Comment Blood Urea Nitrogen 14 MG/DL (7-18) Creatinine 1.18 MG/DL (0.60-1.30) Random Glucose 171 MG/DL (74-106) Total Protein 7.0 GM/DL (6.4-8.2) Albumin 3.3 GM/DL (3.4-5.0) Calcium Level 8.4 MG/DL (8.5-10.1) Alkaline Phosphatase 84 U/L (45-117) Aspartate Amino Transf (AST/SGOT) 30 U/L (15-37) Alanine Aminotransferase (ALT/SGPT) 26 U/L (12-78) Total Bilirubin 0.6 MG/DL (0.2-1.0) Sodium Level 144 MEQ/L (136-145) Potassium Level 4.2 MEQ/L (3.5-5.1) Chloride Level 108 MEQ/L (98-107) Carbon Dioxide Level 28.9 MEQ/L (21.0-32.0) Anion Gap 7 MEQ/L (5-15) Estimat Glomerular Filtration Rate 61 ML/MIN (>89) Phosphorus Level 4.3 MG/DL (2.5-4.9) Urine Color LIGHT-YELLOW (YELLW/STRAW) Urine Turbidity CLEAR (CLEAR) Urine pH 6.5 (5.0-8.5) Urine Specific Lincoln 1.018 (1.002-1.035) Urine Protein 30 mg/dL (NEG-TRACE) Urine Glucose (UA) NEG mg/dL (NEG) Urine Ketones NEG mg/dL (NEG) Urine Occult Blood NEG (NEG) Urine Nitrite NEG (NEG) Urine Bilirubin NEG (NEG) Urine Urobilinogen LESS THAN 2.0 MG/DL (LESS Urine Leukocyte Esterase NEG (NEG) Urine RBC 1 /hpf (0-3) Urine WBC LESS THAN 1 /hpf (0-5) Urine Squamous Epithelial Cells <1 /hpf (0-5) Urine Mucus FEW /lpf (OCC) Microscopic Urinalysis Comment CATH-CULT NOT IND Blood Gas Puncture Site RT RADIAL Blood Gas Patient Temperature 98.6 Blood Gas HCO3 29 mmol/L (22-26) Blood Gas Base Excess 2.3 mmol/L (-2-2) Blood Gas Oxygen Saturation 98 % (90-100) Arterial Blood pH 7.26 (7.380-7.420) Arterial Blood Partial Pressure CO2 67 mmHg (38-42) Arterial Blood Partial Pressure O2 262 mmHG (61-120) Arterial Blood Oxygen Content 18.4 Vol % (12.0-20.0) Arterial Blood Carboxyhemoglobin 1.1 % (0-4) Arterial Blood Methemoglobin 0.8 % (0-2) Blood Gas Hemoglobin 12.9 G/DL (12.0-16.0) Oxygen Delivery Device VENTILATOR Blood Gas Ventilator Setting 16/550/+5 Blood Gas Inspired Oxygen 70 % Nasal Screen MRSA (PCR) MRSA NOT DETECTED (NOT Test 12/24/17 03:47 12/24/17 06:14 White Blood Count 9.1 TH/MM3 (4.0-11.0) Red Blood Count 4.45 MIL/MM3 (4.50-5.90) Hemoglobin 13.2 GM/DL (13.0-17.0) Hematocrit 39.9 % (39.0-51.0) Mean Corpuscular Volume 89.7 FL (80.0-100.0) Mean Corpuscular Hemoglobin 29.8 PG (27.0-34.0) Mean Corpuscular Hemoglobin Concent 33.2 % (32.0-36.0) Red Cell Distribution Width 14.2 % (11.6-17.2) Platelet Count 201 TH/MM3 (150-450) Mean Platelet Volume 9.2 FL (7.0-11.0) Neutrophils (%) (Auto) 92.2 % (16.0-70.0) Lymphocytes (%) (Auto) 6.5 % (9.0-44.0) Monocytes (%) (Auto) 1.3 % (0.0-8.0) Eosinophils (%) (Auto) 0.0 % (0.0-4.0) Basophils (%) (Auto) 0.0 % (0.0-2.0) Neutrophils # (Auto) 8.4 TH/MM3 (1.8-7.7) Lymphocytes # (Auto) 0.6 TH/MM3 (1.0-4.8) Monocytes # (Auto) 0.1 TH/MM3 (0-0.9) Eosinophils # (Auto) 0.0 TH/MM3 (0-0.4) Basophils # (Auto) 0.0 TH/MM3 (0-0.2) CBC Comment DIFF FINAL Differential Comment Prothrombin Time 10.4 SEC (9.8-11.6) Prothromb Time International Ratio 1.0 RATIO Activated Partial Thromboplast Time 24.1 SEC (24.3-30.1) Blood Urea Nitrogen 15 MG/DL (7-18) Creatinine 1.14 MG/DL (0.60-1.30) Random Glucose 171 MG/DL (74-106) Total Protein 6.3 GM/DL (6.4-8.2) Albumin 3.0 GM/DL (3.4-5.0) Calcium Level 8.7 MG/DL (8.5-10.1) Phosphorus Level 2.2 MG/DL (2.5-4.9) Magnesium Level 2.0 MG/DL (1.5-2.5) Alkaline Phosphatase 68 U/L (45-117) Aspartate Amino Transf (AST/SGOT) 15 U/L (15-37) Alanine Aminotransferase (ALT/SGPT) 20 U/L (12-78) Total Bilirubin 0.3 MG/DL (0.2-1.0) Sodium Level 143 MEQ/L (136-145) Potassium Level 3.9 MEQ/L (3.5-5.1) Chloride Level 106 MEQ/L (98-107) Carbon Dioxide Level 29.8 MEQ/L (21.0-32.0) Anion Gap 7 MEQ/L (5-15) Estimat Glomerular Filtration Rate 64 ML/MIN (>89) Lactic Acid Level 1.2 mmol/L (0.4-2.0) Blood Gas Puncture Site RT RADIAL Blood Gas Patient Temperature 98.6 Blood Gas HCO3 30 mmol/L (22-26) Blood Gas Base Excess 5.2 mmol/L (-2-2) Blood Gas Oxygen Saturation 94 % (90-100) Arterial Blood pH 7.42 (7.380-7.420) Arterial Blood Partial Pressure CO2 47 mmHg (38-42) Arterial Blood Partial Pressure O2 80 mmHg (61-120) Arterial Blood Oxygen Content 16.4 Vol % (12.0-20.0) Arterial Blood Carboxyhemoglobin 1.0 % (0-4) Arterial Blood Methemoglobin 1.4 % (0-2) Blood Gas Hemoglobin 12.4 G/DL (12.0-16.0) Oxygen Delivery Device VENTILATOR Blood Gas Ventilator Setting SEE COMMENTS Blood Gas Inspired Oxygen 50 % Result Diagram: 12/24/17 0347 12/24/17 0347 Microbiology Microbiology Date/Time Source Procedure Growth Status 12/23/17 12:40 Blood Peripheral Aerobic Blood Culture - Preliminary NO GROWTH IN 1 DAY Resulted 12/23/17 12:40 Blood Peripheral Anaerobic Blood Culture - Preliminary NO GROWTH IN 1 DAY Resulted 12/23/17 12:30 Blood Peripheral Aerobic Blood Culture - Preliminary NO GROWTH IN 1 DAY Resulted 12/23/17 12:30 Blood Peripheral Anaerobic Blood Culture - Preliminary NO GROWTH IN 1 DAY Resulted 12/23/17 12:45 Nasal Aspirate Influenza Types A,B Antigen ([place]) - Final NEGATIVE FOR FLU A AND B ANTIGEN.... Complete 12/23/17 10:20 Urine Catheterized Urine Legionella Antigen - Final PRESUMPTIVE NEGATIVE FOR LEGIONELLA P... Complete 12/23/17 10:20 Urine Catheterized Urine Streptococcus pneumoniae Antigen (M - Final PRESUMPTIVE NEGATIVE FOR STREPTOCOCCU... Complete Imaging Last Impressions Chest X-Ray 12/24/17 0600 Signed Impressions: Service Date/Time: Sunday, December 24, 2017 03:31 - CONCLUSION: Normal examination. ET tube and NG tube in good position. Fransico Malhotra MD Procedures 12/23: Intubation 12/24: Extubation . Patient/Family Conference Present at Family Conference: No family at bedside. Attempted to discuss palliative care with patient, however patient was unwilling to discuss to any extent. . Issues Discussed: * Palliative care role, purpose, approach * Additional medical, psychosocial, and spiritual history * Patients goals of care as best understood from advance directives and/or conversations and/or values * Palliative care contact information provided . 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 He worked as a tank commander. He states he was never and had no children. He is reluctant to answer further questions. Spiritual: Mailmaster available, patient declines request for visit. Legal: Patient refusing to name a healthcare surrogate. States he would prefer a court appointed guardian. Ethical issues impacting care: No alternate decision-maker. . Important Contacts Friend: Miguel Davis . Prognosis His prognosis is guarded. He is being seen more frequently in the emergency department for COPD exacerbations, and was seen September 25, November 27 and this admission, December 23. His presenting ABG showed hypercarbia with PCO2 of 67. This is consistent with his prior admissions. He has oxygen dependent COPD and questionable compliance with medical therapy. He remains on DuoNeb, azithromycin, Rocephin and Solu-Medrol. He wishes to be discharged home. Given his poor performance status and poor compliance, he is likely to have recurrent admissions, complications and decline. . Code Status: Full Code Plan PLAN: Legal decision maker: Currently, the patient m when the physician may be capacitated to make his own decisions, however this is not clear due to his vacillating, sometimes conflicting, answers and difficulty with forgetting answers to recently ask questions. He denies having any friends that he would be willing to name as a surrogate and has been estranged from his family for years. [place] statute hierarchy was explained to him and he stated he would rather have the court appointed guardian make decisions. He also refused to fill out a living will to delineate his wishes. He may have advanced directives at the [place] where he is chronically followed. Goals: Aggressive. CODE STATUS: FULL CODE SYMPTOMS: * Dyspnea: He remains dyspneic at rest. He was just extubated this morning and BiPAP was attempted however the patient would not tolerate the mask and pulled it off. He is tolerating the nasal cannula but pursed lip breathes almost constantly and becomes dyspneic with any conversation. Oxygen saturation is seen to decline with even monosyllabic answers. States he wishes to go home, however, he lives on the second floor and would have to walk up stairs, which could be problematic. He states he is at his baseline on his current therapy. He does have access to medical care through the [place]. * Cough: He denies any muscle pain with cough but does state that his chest feels tight. Cough is dry, hacking, frequent and worse at night. It is currently controlled on medications. * Anxiety: He is significantly anxious and seen to have a mild tremor, however is on Solu-Medrol. He states he is claustrophobic and does not wish to be transferred in the room that he cannot see out of. There is no medication on his chart for anxiety and he would be at risk for respiratory compromise from any extensive sedation, especially given his chronic hypercarbia. Would recommend Ativan 0.5 mg p.o. twice daily, PRN, anxiety, which may help his chronic feeling of air hunger. Would also recommend psychiatry consultation to evaluate capacity to make his own decisions. Additionally, I will consult case management for any advanced directives that may be at the [place] where he chronically receives care. SUMMARY This is a 67-year-old male with greater than 49-veom-wunx history of tobacco use , mostly cigars, that presents to the emergency department with severe dyspnea and hypercarbia intubated in the field. He has been stabilized on medication and is now extubated and asking to go home. He has severe anxiety, which is exacerbating his dyspneic episodes. He has had 3 visits to [facility] so far in 2018 and is at elevated risk for recurrent admissions due to his severe disease , untreated anxiety and medical noncompliance. He would be hospice appropriate if goals were consistent, which they are not at this time. Palliative care will continue to follow the patient during hospital course as condition evolves, to assist patient/decision-maker with understanding of their medical conditions, weighing benefits/burdens of treatment options, for clarification of goals of treatment. Additionally will assist with any symptoms of palliative concern. . Thank you for the opportunity to participate in the care of Mr. Li. Attestation To help prompt me to consider important information that might be impacting today's encounter and assessment, information from prior notes written by myself or my colleagues may have been "brought forward" into today's note. My signature on this note, however, is an attestation that I personally performed the exam, history, and/or decision-making noted today, and, unless otherwise indicated, the interactions with patient, family, and staff as well as the review of records all occurred today. I also attest that the listed assessment and stated plan reflect my best clinical judgment today based on the combination of historical information, prior notes, and today's exam/ interactions. When time spent is documented, it refers only to time spent today by the signer, or if indicated, combined time spent today by collaborating physician/nurse practitioner. . Gilma Washington December 24, 2017 1:05 pm
[2017-12-24] MEDS: AZITHROMYCIN INJ 500 MG in SODIUM CHLOR 0.9% 250 ML INJ 250 ML IV SCH (14:25)
[2017-12-24] MEDS: METOPROLOL TARTRATE 25 MG TAB PO SCH ×2 (16:33→20:31)
[2017-12-24] MEDS ORDERED: METOPROLOL TARTRATE 5 MG/5 ML VIAL IV PUSH ONE (22:00)
[2017-12-24] MEDS: DILTIAZEM HCL 30 MG TAB PO SCH (23:13)
[2017-12-25] VITALS (11 sets, daily range): BP systolic 126–168; BP diastolic 63–75; PULSE 92–121; RESP 16–19; TEMP 97.6–98.6; O2SAT 93–97
[2017-12-25] MEDS: RESP: ALBUTEROL 2.5 MG/IPRATROPIUM 0.5 MG NEB (SCH) INH ×6 (00:07→19:06)
[2017-12-25] MEDS: LACTATED RINGER'S 1000 ML INJ 1,000 ML IV SCH (00:28)
[2017-12-25] MEDS: CHLORHEXIDINE GLUCONATE 2 % 1 PACK (2 CLOTHS) TOP SCH (04:00)
[2017-12-25] MEDS: ARTIFICIAL TEARS OPTH SOLN 15 ML BTL EACH EYE SCH ×3 (04:17→22:25)
[2017-12-25] MEDS: methylPREDNISolone SOD SUCC 40 MG/1 ML VIAL IV PUSH SCH (05:12)
[2017-12-25] MEDS: HEPARIN SODIUM - SQ 10,000 UNITS/ML VIAL SQ SCH ×3 (05:12→22:13)
[2017-12-25] MEDS: DILTIAZEM HCL 30 MG TAB PO SCH ×3 (05:12→18:19)
[2017-12-25] MEDS: INSULIN NovoLIN REGULAR SUPPLEMENTAL SCALE SQ SCH ×4 (05:13→23:11)
[2017-12-25 05:43] LABS: AUTOMATED NEUTROPHIL # 10.4 TH/MM3 (1.8-7.7); BASOPHIL % 0.1 % (0.0-2.0); HEMATOCRIT 36.3 % (39.0-51.0); LYMPH % 6.4 % (9.0-44.0); LYMPHOCYTE # 0.8 TH/MM3 (1.0-4.8); MEAN CELL VOLUME 90.1 FL (80.0-100.0); MEAN CORPUSCULAR HEMOGLOBIN 29.7 PG (27.0-34.0); MEAN CORPUSCULAR HGB CONC 32.9 % (32.0-36.0); MEAN PLATELET VOLUME 9.5 FL (7.0-11.0); MONO % 4.6 % (0.0-8.0); MONOCYTE # 0.5 TH/MM3 (0-0.9); NEUT % 88.9 % (16.0-70.0); PLATELET COUNT 193 TH/MM3 (150-450); RED BLOOD COUNT 4.03 MIL/MM3 (4.50-5.90); RED CELL DISTRIBUTION WIDTH 14.6 % (11.6-17.2); WHITE BLOOD COUNT 11.7 TH/MM3 (4.0-11.0)
[2017-12-25 06:08] LABS: ALBUMIN 2.7 GM/DL (3.4-5.0); AST (GOT) 15 U/L (15-37); BICARBONATE 29.4 MEQ/L (21.0-32.0); BLOOD UREA NITROGEN 19 MG/DL (7-18); CALCIUM 8.7 MG/DL (8.5-10.1); CHLORIDE 107 MEQ/L (98-107); CREATININE 1.19 MG/DL (0.60-1.30); GLOMERULAR FILTRATION RATE 61 ML/MIN (>89); GLUCOSE,RANDOM 157 MG/DL (74-106); MAGNESIUM 2.2 MG/DL (1.5-2.5); SODIUM (NA) 144 MEQ/L (136-145)
[2017-12-25 06:09] LABS: ALT (GPT) 18 U/L (12-78); PHOSPHORUS 2.8 MG/DL (2.5-4.9)
[2017-12-25 06:19] LABS: ALKALINE PHOSPHATASE 63 U/L (45-117); TOTAL BILIRUBIN ADULT 0.2 MG/DL (0.2-1.0); TOTAL PROTEIN 5.7 GM/DL (6.4-8.2); TROPONIN I LESS THAN 0.02 NG/ML (0.02-0.05)
--- NOTE | 2017-12-25 07:16 | HHI.PR ---
Subjective Remarks Follow-up respiratory failure and COPD. States he is improving has not been out of bed. On 4 L nasal cannula at home. Does not see a pulmonary doctor. Objective Vitals Vital Signs Date Time Temp Pulse Resp B/P (MAP) Pulse Ox O2 Delivery O2 Flow Rate FiO2 12/25/17 06:00 100 12/25/17 04:00 98.6 98 18 146/70 (95) 96 12/25/17 04:00 98 12/25/17 02:00 111 12/25/17 00:00 121 12/25/17 00:00 98.5 121 19 154/70 (98) 93 12/24/17 22:00 128 12/24/17 20:55 96 Nasal Cannula 3.00 12/24/17 20:00 98.6 128 21 137/64 (88) 93 12/24/17 20:00 128 12/24/17 18:00 135 12/24/17 16:00 127 12/24/17 16:00 98.2 127 16 137/65 (89) 94 12/24/17 14:00 127 12/24/17 12:00 98.1 127 26 143/63 (89) 92 12/24/17 12:00 127 12/24/17 11:08 97 Nasal Cannula 3.00 12/24/17 10:15 98 35 12/24/17 10:15 98 BiPAP/CPAP 35 12/24/17 10:00 109 12/24/17 08:38 40 12/24/17 08:00 86 12/24/17 08:00 45 12/24/17 08:00 98.0 86 37 130/62 (84) 98 12/24/17 07:27 96 45 I/O 12/24/17 12/24/17 12/24/17 12/25/17 12/25/17 12/25/17 07:00 15:00 23:00 07:00 15:00 23:00 Intake Total 1200 ml 1050 ml 2200 ml Output Total 850 ml 1950 ml 1400 ml Balance 350 ml -900 ml 800 ml Intake Oral 0 ml 450 ml 1200 ml IV Total 1200 ml 600 ml 1000 ml Output Urine Total 650 ml 1650 ml 1400 ml Stool Total 0 ml 0 ml 0 ml Gastric Drainage Total 200 ml 300 ml Result Diagram: 5/9/18 0443 5/9/18 0443 Imaging Last Impressions Chest X-Ray 12/24/17 0600 Signed Impressions: Service Date/Time: Sunday, December 24, 2017 03:31 - CONCLUSION: Normal examination. ET tube and NG tube in good position. Fransico Malhotra MD Objective Remarks GENERAL: Elderly gentleman, SKIN: Warm and dry. No rash. Areas of ecchymoses bilateral lower extremities. CARDIOVASCULAR: Heart sounds are regular, no murmurs appreciated. RESPIRATORY: Improved air entry bilateral, no wheezes, no rales. GASTROINTESTINAL: Abdomen soft, not distended, appears nontender. Bowel sounds present. MUSCULOSKELETAL: Warm and well-perfused. Bilateral lower extremity pitting edema. Peripheral pulses present. NEUROLOGICAL: Pupils are equal and reactive. Procedures Intubation A/P Problem List: (1) Hypercapnic respiratory failure ICD Code: J96.92 - Respiratory failure, unspecified with hypercapnia Status: Acute (2) COPD with acute exacerbation ICD Code: J44.1 - Chronic obstructive pulmonary disease with (acute) exacerbation (3) Diabetes mellitus type 2 in obese ICD Code: E11.69 - Type 2 diabetes mellitus with other specified complication; E66.9 - Obesity, unspecified (4) Essential hypertension ICD Code: I10 - Essential (primary) hypertension (5) Hypoalbuminemia ICD Code: E88.09 - Other disorders of plasma-protein metabolism, not elsewhere classified (6) Leukocytosis ICD Code: D72.829 - Elevated white blood cell count, unspecified (7) Acute kidney injury ICD Code: N17.9 - Acute kidney failure, unspecified Assessment and Plan 1. Acute on chronic hypercapnic and hypoxic respiratory failure. Currently on 4 L. Increase activity consult physical therapy 2. Acute COPD exacerbation. Improved switch to p.o. Zithromax and prednisone. Consult pulmonary 3. Chronic prednisone use. Wean as tolerated 4. Diabetes. Expect hyperglycemia from steroids. Monitor fingersticks with sliding scale coverage. Hold metformin for now 5. Hypertension. Improved on Lopressor and Cardizem 6. Leukocytosis -from steroids DVT prophylaxis with heparin and SCD's Discharge Planning Stable for transfer to floor hopefully discharge with home care in 1-2 days Problem Qualifiers (1) Hypercapnic respiratory failure: Qualified Codes: J96.02 - Acute respiratory failure with hypercapnia (2) Leukocytosis: Qualified Codes: D72.829 - Elevated white blood cell count, unspecified Shayan Gutierrez MD December 25, 2017 07:16
[2017-12-25] MEDS: RESP: BUDESONIDE 0.5 MG/2 ML NEB NEB SCH (07:24)
[2017-12-25] MEDS: CHLORHEXIDINE 0.12% (ORAL KIT) 15 ML CUP MT SCH ×2 (08:00→20:00)
[2017-12-25] MEDS: SODIUM CHLORIDE 0.9% FLUSH 10 ML FLUSH IV FLUSH SCH ×2 (08:39→22:14)
[2017-12-25] MEDS: LANSOPRAZOLE SOLUTAB 30 MG TAB G-TUBE SCH (08:39)
[2017-12-25] MEDS: DOCUSATE SODIUM 50 MG/SENNA 8.6 MG TAB PO SCH ×2 (08:39→21:00)
[2017-12-25] MEDS: METOPROLOL TARTRATE 25 MG TAB PO SCH ×2 (08:39→22:12)
[2017-12-25 08:45] LABS: FREE T3 1.55 PG/ML (2.18-3.98); FREE T4 1.04 NG/DL (0.76-1.46)
--- NOTE | 2017-12-25 09:16 | EKG ---
Date Performed: 12/24/2017 Time Performed: 22:25:12 PTAGE: 67 years EKG: Sinus tachycardia. Lead(s) unsuitable for analysis: V2 Normal ECG except for rate PREVIOUS TRACING : 12/23/2017 10.00 DOCTOR: Fransico Robles Interpretating Date/Time 12/25/2017 09:13:10
[2017-12-25] MEDS ORDERED: METO25TA3 PO (10:12)
[2017-12-25] MEDS ORDERED: CARD120C4 PO (10:12)
[2017-12-25] MEDS ORDERED: PRED20 PO (10:13)
--- NOTE | 2017-12-25 10:13 | EKG ---
Date Performed: 12/23/2017 Time Performed: 10:00:30 PTAGE: 67 years EKG: Sinus rhythm ABNORMAL RHYTHM ECG NO PREVIOUS TRACING DOCTOR: Fransico Robles Interpretating Date/Time 12/25/2017 10:12:47
--- NOTE | 2017-12-25 10:13 | HHI.FF ---
Face to Face Verification Diagnosis: (1) COPD with acute exacerbation Physical Therapy Order: Evaluate and Treat, Improve ambulation, Strength and gait training Home Health Nursing Order: Medical education Oxygen administration education Nursing assessment with vital signs I have seen patient Sundar Li on 12/25/17. My clinical findings support the need for the requested home health care services because: Patient has SOB Deconditioned w/ increased weakness I certify that my clinical findings support that this patient is homebound because: Hx COPD- exertion dyspnea/weakness hSayan Gutierrez MD December 25, 2017 10:13
--- NOTE | 2017-12-25 10:13 | HHI.DCPOC ---
Discharge Care Plan Diagnosis: (1) COPD with acute exacerbation Your Health Problems Are: Difficulty with ADL Exercise Tolerance Goals to Promote Your Health * To prevent worsening of your condition and complications * To maintain your health at the optimal level Directions to Meet Your Goals Take your medications as prescribed Follow your dietary instruction Follow activity as directed Keep your appointments as scheduled Take your immunizations and boosters as scheduled If your symptoms worsen call your PCP, if no PCP go to Urgent Care Center or Emergency Room Smoking is Dangerous to Your Health. Avoid second hand smoke Call the 24-hour hour crisis hotline for domestic abuse at Shayan Gutierrez MD December 25, 2017 10:13
[2017-12-25] MEDS: BUDESONIDE-FORMOTEROL 160/4.5 MCG INHALER INH SCH ×2 (10:15→21:00)
[2017-12-25] MEDS: predniSONE 20 MG TAB PO SCH (12:36)
[2017-12-25] MEDS: AZITHROMYCIN 250 MG TAB PO SCH (15:55)
--- NOTE | 2017-12-25 21:59 | MB ---
cc: Juan Jose Hyman MD DATE: 12/25/2017 REQUESTING PHYSICIAN: Dr. Treviño REASON FOR CONSULTATION: COPD exacerbation. HISTORY OF PRESENT ILLNESS: Mr. Li is a 67-year-old male who has longstanding history of COPD. He is oxygen dependent. He feels that over the last 2 months, his shortness of breath is getting worse to the extent that walking from one room to another room is difficult. The patient was brought by the [facility] because of the respiratory distress and he was intubated in the field. He has been extubated. Currently, he is on 4 liter nasal cannula. He feels weak, has cough, occasional sputum production. No fever or chills. No night sweats, no chest pain. PAST MEDICAL HISTORY: Significant for history of COPD, hypertension, diabetes mellitus. PAST SURGICAL HISTORY: No major surgery. MEDICATIONS: He is currently taking Zithromax 500 mg b.i.d., Symbicort 160/4.5 one puff twice a day, prednisone 40 mg, diltiazem 30 mg every 6 hours, metoprolol 25 mg every 12 hours, Prevacid 30 mg a day, heparin 5000 every 8 hours, albuterol and Atrovent nebulizer treatment. ALLERGIES: NO KNOWN DRUG ALLERGIES. SOCIAL HISTORY: He has a history of smoking 2-3 pack a day for 50 years, which he quit 6 years ago. No alcohol or drug abuse. 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 FAMILY HISTORY: He is single, never , no children. He lives alone. He has 1 brother who may be alive in [place]. He has not seen him in 30 years. REVIEW OF SYSTEMS: He walks only short distance. Weighty is stable. No DVT, pulmonary embolism, no malignancy. PHYSICAL EXAMINATION: GENERAL: Elderly male, mild short of breath. VITAL SIGNS: Blood pressure 168/75, heart rate 101, respirations 18, temperature 97.9. HEENT: Pupils are equal and reactive to light. He has bilateral cataracts. Oral mucosa and nasal mucosa normal. NECK: Supple. JVD noted. CHEST: He is hyperresonant chest, decreased chest excursion, few rhonchi. CARDIOVASCULAR: S1, S2 normal. ABDOMEN: Soft, nondistended. Bowel sounds are present. EXTREMITIES: No edema. CENTRAL NERVOUS SYSTEM: Alert and oriented x 3. No focal deficit. IMAGING, LABORATORY DATA: His chest x-ray shows normal examination. WBC count is 11.7, hemoglobin 12, hematocrit 36.3, MCV 90, platelet count 193. Sodium 144, potassium 3.9, chloride 107, CO2 29, BUN 19, creatinine 1.19. Blood gas, pH 7.42, pCO2 47, pO2 80, bicarbonate 30, on 50% oxygen, on ventilator. IMPRESSION: 1. Chronic obstructive pulmonary disease exacerbation, acute respiratory failure, status post extubation. 2. Hypertension. 3. Diabetes mellitus. PLAN: I discussed with the patient. I will check his pulmonary function studies, p.o. steroids aerosol treatment. Continue antibiotic. Encouraged him to ambulate. Check his pulmonary function study. He has difficulty sleeping and did not sleep for the last 3 nights. I will put him on temazepam 7.5 mg at nighttime and see the response. Further treatment will depend on the course in the hospital. Thank you, Dr. Treviño, for this consult. MD KIRSTEN Broderick/RENE , 08:58 PM , 09:58 PM
[2017-12-26] VITALS (9 sets, daily range): BP systolic 137–167; BP diastolic 64–80; PULSE 87–116; RESP 18–20; TEMP 97.3–97.9; O2SAT 93–98
[2017-12-26] MEDS: TEMAZEPAM 7.5 MG CAP PO PRN ×2 (00:41→21:09)
[2017-12-26] MEDS: DILTIAZEM HCL 30 MG TAB PO SCH ×5 (00:41→23:12)
[2017-12-26] MEDS: RESP: ALBUTEROL 2.5 MG/IPRATROPIUM 0.5 MG NEB (SCH) INH ×6 (04:00→20:00)
[2017-12-26] MEDS: CHLORHEXIDINE GLUCONATE 2 % 1 PACK (2 CLOTHS) TOP SCH ×2 (04:00→19:12)
[2017-12-26] MEDS: INSULIN NovoLIN REGULAR SUPPLEMENTAL SCALE SQ SCH ×4 (06:00→21:07)
[2017-12-26] MEDS: ARTIFICIAL TEARS OPTH SOLN 15 ML BTL EACH EYE SCH ×3 (06:51→21:09)
[2017-12-26] MEDS: HEPARIN SODIUM - SQ 10,000 UNITS/ML VIAL SQ SCH ×3 (06:54→21:09)
[2017-12-26] MEDS: CHLORHEXIDINE 0.12% (ORAL KIT) 15 ML CUP MT SCH ×2 (08:00→19:11)
[2017-12-26] MEDS: BUDESONIDE-FORMOTEROL 160/4.5 MCG INHALER INH SCH ×2 (08:19→21:08)
[2017-12-26] MEDS: predniSONE 20 MG TAB PO SCH (08:20)
[2017-12-26] MEDS: LANSOPRAZOLE SOLUTAB 30 MG TAB G-TUBE SCH (08:20)
[2017-12-26] MEDS: SODIUM CHLORIDE 0.9% FLUSH 10 ML FLUSH IV FLUSH SCH ×2 (08:21→21:00)
[2017-12-26] MEDS: METOPROLOL TARTRATE 25 MG TAB PO SCH ×2 (08:21→21:09)
[2017-12-26] MEDS: DOCUSATE SODIUM 50 MG/SENNA 8.6 MG TAB PO SCH ×2 (08:21→21:00)
[2017-12-26] MEDS: AZITHROMYCIN 250 MG TAB PO SCH (11:47)
--- NOTE | 2017-12-26 12:02 | HHI.HCPN ---
Met with Mr. Li for ongoing assistance with communication and support. Mr. Li is currently sitting up in bedside chair, alert, oriented, and able to make his needs known. He is pleasant and appreciative of time spent with him. Participated in some life review through story telling and provided active listening. Mr. Li appears to have lived a free spirit kind of life and enjoyed traveling around the world. He is currently reflecting on life while facing his own mortality. Gently discussed goals of care regarding his wishes for end of life. He is adamant he does not want his family contacted under any circumstances. He tells me he has one living brother in [place] somewhere, his mother, father and sister are . Further reports he was not mentioned in his sister's obituary which he feels speaks to the nature of his family wanting to be in contact with him. Quality of life is very important to Mr. Li. He verbalizes his independence is priority number one to him. Elected to complete a living will indicating he would not want his life prolonged by artificial means if he had a terminal condition, end-stage condition, or was in a persistent vegetative state. He further requests it to be written that he does not want his family contacted under any circumstances. Requests he not be buried as he is claustrophobic and desires his ashes to be spread at sea. Explained [place] Statutes in terms of medical proxy decision makers and he confirms he desires for a Licensed Clinical Food Service Supervisor (SW advantage) to serve in this role should he be unable to make his own medical decisions. Living will completed, signed and faxed to HIM to be scanned into EMR. Palliative care will continue to follow throughout hospitalization. SW will continue to follow for emotional and social support. Chrissy Mejia, QUALITY MANAGER December 26, 2017 12:01
--- NOTE | 2017-12-26 16:03 | HHI.PR ---
Subjective Remarks Patient reports he is feeling better. Wheezing less. Still requiring 4 L NC. Objective Vitals Vital Signs Date Time Temp Pulse Resp B/P (MAP) Pulse Ox O2 Delivery O2 Flow Rate FiO2 12/26/17 15:39 95 Nasal Cannula 4.00 12/26/17 12:00 107 12/26/17 12:00 97.9 107 19 167/80 (109) 95 12/26/17 09:29 Nasal Cannula 4.00 12/26/17 08:43 98 Nasal Cannula 4.00 12/26/17 08:00 87 12/26/17 08:00 97.5 92 18 155/73 (100) 93 12/26/17 04:00 97 12/26/17 04:00 97.6 88 20 146/70 (95) 98 12/26/17 01:58 95 Nasal Cannula 4.00 12/26/17 00:00 97.4 102 20 162/75 (104) 96 12/26/17 00:00 102 12/25/17 20:00 Nasal Cannula 4.00 12/25/17 20:00 108 12/25/17 20:00 97.6 105 18 135/66 (89) 97 I/O 12/25/17 12/25/17 12/25/17 12/26/17 12/26/17 12/26/17 06:59 14:59 22:59 06:59 14:59 22:59 Intake Total 2200 ml 325 ml 220 ml Output Total 1400 ml 850 ml 400 ml 600 ml Balance 800 ml -525 ml -400 ml -380 ml Intake Oral 1200 ml 325 ml 220 ml IV Total 1000 ml Output Urine Total 1400 ml 850 ml 400 ml 600 ml Stool Total 0 ml 0 ml Result Diagram: 12/25/17 0443 12/25/17 0443 Objective Remarks GENERAL: This is a well-nourished, well-developed patient, in no apparent distress. CARDIOVASCULAR: Regular rate and rhythm without murmurs, gallops, or rubs. RESPIRATORY: Diminished breath sounds at the bases, faint end expiratory wheezing. GASTROINTESTINAL: Abdomen soft, non-tender, nondistended. Normal active bowel sounds MUSCULOSKELETAL: Extremities without clubbing, cyanosis, or edema. NEURO: Alert & Oriented x4 to person, place, time, situation. Moves all ext x4 Procedures Intubation A/P Problem List: (1) Hypercapnic respiratory failure ICD Code: J96.92 - Respiratory failure, unspecified with hypercapnia Status: Acute (2) COPD with acute exacerbation ICD Code: J44.1 - Chronic obstructive pulmonary disease with (acute) exacerbation (3) Diabetes mellitus type 2 in obese ICD Code: E11.69 - Type 2 diabetes mellitus with other specified complication; E66.9 - Obesity, unspecified (4) Essential hypertension ICD Code: I10 - Essential (primary) hypertension (5) Hypoalbuminemia ICD Code: E88.09 - Other disorders of plasma-protein metabolism, not elsewhere classified (6) Leukocytosis ICD Code: D72.829 - Elevated white blood cell count, unspecified (7) Acute kidney injury ICD Code: N17.9 - Acute kidney failure, unspecified Assessment and Plan 1. Acute on chronic hypercapnic and hypoxic respiratory failure. Currently on 4 L. Increase activity consult physical therapy 2D echo pending to rule out right sided heart failure. 2. Acute COPD exacerbation. Improved switched to p.o. Zithromax and prednisone. Pulmonology following 3. Chronic prednisone use. Wean as tolerated 4. Diabetes. Expect hyperglycemia from steroids. Monitor fingersticks with sliding scale coverage. Hold metformin for now 5. Hypertension. Improved on Lopressor and Cardizem 6. Leukocytosis -from steroids DVT prophylaxis with heparin and SCD's Discharge Planning Plan to DC home in AM with oxygen. Problem Qualifiers (1) Hypercapnic respiratory failure: Qualified Codes: J96.02 - Acute respiratory failure with hypercapnia (2) Leukocytosis: Qualified Codes: D72.829 - Elevated white blood cell count, unspecified Deirdre Reyes MD December 26, 2017 16:03
--- NOTE | 2017-12-26 17:50 | HHI.PR ---
Subjective Remarks 67 YOWM with RF, s/p extubation, COPD exac Feels better On 4LNC Wheezing improved Objective Vital Signs Vital Signs Date Time Temp Pulse Resp B/P (MAP) Pulse Ox O2 Delivery O2 Flow Rate FiO2 12/26/17 16:00 116 12/26/17 16:00 97.9 109 18 158/79 (105) 95 12/26/17 15:39 95 Nasal Cannula 4.00 12/26/17 12:00 107 12/26/17 12:00 97.9 107 19 167/80 (109) 95 12/26/17 09:29 Nasal Cannula 4.00 12/26/17 08:43 98 Nasal Cannula 4.00 12/26/17 08:00 87 12/26/17 08:00 97.5 92 18 155/73 (100) 93 12/26/17 04:00 97 12/26/17 04:00 97.6 88 20 146/70 (95) 98 12/26/17 01:58 95 Nasal Cannula 4.00 12/26/17 00:00 97.4 102 20 162/75 (104) 96 12/26/17 00:00 102 12/25/17 20:00 Nasal Cannula 4.00 12/25/17 20:00 108 12/25/17 20:00 97.6 105 18 135/66 (89) 97 I/O 12/25/17 12/25/17 12/25/17 12/26/17 12/26/17 12/26/17 07:00 15:00 23:00 07:00 15:00 23:00 Intake Total 2200 ml 325 ml 220 ml Output Total 1400 ml 850 ml 400 ml 600 ml Balance 800 ml -525 ml -400 ml -380 ml Intake Oral 1200 ml 325 ml 220 ml IV Total 1000 ml Output Urine Total 1400 ml 850 ml 400 ml 600 ml Stool Total 0 ml 0 ml Result Diagram: 12/25/1744212/25/17442 Objective Remarks GENERAL: MBMN Wm, mild sob SKIN: Warm and dry. HEAD: Normocephalic. EYES: No scleral icterus. No injection or drainage. NECK: Supple, trachea midline. No JVD or lymphadenopathy. CARDIOVASCULAR: Regular rate and rhythm without murmurs, gallops, or rubs. RESPIRATORY: Breath sounds equal bilaterally. No accessory muscle use. Decreased chest excursion Mild wheezing GASTROINTESTINAL: Abdomen soft, non-tender, nondistended. MUSCULOSKELETAL: No cyanosis, or edema. BACK: Nontender without obvious deformity. No CVA tenderness. A/P Assessment and Plan IMPRESSION: 1. Chronic obstructive pulmonary disease exacerbation, acute respiratory failure, status post extubation. 2. Hypertension. 3. Diabetes mellitus. PLAN: Aerosol nebs supplement 02 with 4LNC PO Prednisone OOB and ambulate DC plans for home. Juan Jose Hyman MD December 26, 2017 17:50
[2017-12-27] VITALS: BP 149/75; PULSE 110; PULSE 97; RESP 20; TEMP 97.4; O2SAT 95
[2017-12-27] MEDS: RESP: ALBUTEROL 2.5 MG/IPRATROPIUM 0.5 MG NEB (SCH) INH ×4 (03:56→11:29)
[2017-12-27 04:00] VITALS: BP 154/84; PULSE 88; PULSE 90; RESP 20; TEMP 98.4; O2SAT 98
[2017-12-27] MEDS: HEPARIN SODIUM - SQ 10,000 UNITS/ML VIAL SQ SCH ×2 (04:13→11:57)
[2017-12-27] MEDS: ARTIFICIAL TEARS OPTH SOLN 15 ML BTL EACH EYE SCH ×2 (04:13→11:57)
[2017-12-27] MEDS: INSULIN NovoLIN REGULAR SUPPLEMENTAL SCALE SQ SCH ×2 (04:14→11:49)
[2017-12-27] MEDS: DILTIAZEM HCL 30 MG TAB PO SCH ×2 (04:14→11:57)
[2017-12-27 07:49] VITALS: O2SAT 96
[2017-12-27] MEDS: CHLORHEXIDINE 0.12% (ORAL KIT) 15 ML CUP MT SCH (07:52)
[2017-12-27] MEDS: METOPROLOL TARTRATE 25 MG TAB PO SCH (07:53)
[2017-12-27] MEDS: predniSONE 20 MG TAB PO SCH (07:53)
[2017-12-27] MEDS: LANSOPRAZOLE SOLUTAB 30 MG TAB G-TUBE SCH (07:53)
[2017-12-27] MEDS: BUDESONIDE-FORMOTEROL 160/4.5 MCG INHALER INH SCH (07:54)
[2017-12-27] MEDS: DOCUSATE SODIUM 50 MG/SENNA 8.6 MG TAB PO SCH (07:55)
[2017-12-27] MEDS: SODIUM CHLORIDE 0.9% FLUSH 10 ML FLUSH IV FLUSH SCH (07:55)
[2017-12-27 08:00] VITALS: BP 144/74; PULSE 89; PULSE 93; RESP 18; TEMP 97.9; O2SAT 96
--- NOTE | 2017-12-27 08:55 | HHI.DS ---
Discharge Summary Admission Date December 23, 2017 at 11:31 Discharge Date: December 27, 2017 Admitting Diagnosis hypercarbic respiratory failure (1) Hypercapnic respiratory failure ICD Code: J96.92 - Respiratory failure, unspecified with hypercapnia Diagnosis: Principal Status: Acute (2) COPD with acute exacerbation ICD Code: J44.1 - Chronic obstructive pulmonary disease with (acute) exacerbation Diagnosis: Principal (3) Diabetes mellitus type 2 in obese ICD Code: E11.69 - Type 2 diabetes mellitus with other specified complication; E66.9 - Obesity, unspecified Diagnosis: Secondary (4) Essential hypertension ICD Code: I10 - Essential (primary) hypertension Diagnosis: Secondary (5) Hypoalbuminemia ICD Code: E88.09 - Other disorders of plasma-protein metabolism, not elsewhere classified Diagnosis: Secondary (6) Leukocytosis ICD Code: D72.829 - Elevated white blood cell count, unspecified Diagnosis: Secondary (7) Acute kidney injury ICD Code: N17.9 - Acute kidney failure, unspecified Diagnosis: Secondary Procedures Intubation Brief History - From Admission HPI from the admitting physician This is a 59-year-old male. The admission 12/23/2017. Past medical history includes oxygen dependent COPD, hypertension, dyslipidemia and morbid obesity. This patient presents to the [facility] emergency department having been found by EMS in his apartment in respiratory distress imminent respiratory failure patient was trying to use his nebulizer machine but was in severe respiratory distress. Is unclear how long the duration has been short of breath. He is recently admitted to [facility] in November with similar findings of COPD. EMS got him out to the ambulance but he was becoming increasingly lethargic so the decision was made to intubate the patient. He was given etomidate and midazolam. The intubation was uncomplicated per ER records. He was given a bronchodilator treatment and IV steroids in the field. Chest x-ray revealed no acute cardiopulmonary findings. Patient is currently on a propofol drip and seen in room E 50. Minimally responsive on the ventilator. OG-tube is in place. CBC/BMP: 12/25/17 0443 12/25/17 0443 Significant Findings Laboratory Tests Test 12/25/17 04:43 White Blood Count 11.7 TH/MM3 (4.0-11.0) Red Blood Count 4.03 MIL/MM3 (4.50-5.90) Hemoglobin 12.0 GM/DL (13.0-17.0) Hematocrit 36.3 % (39.0-51.0) Neutrophils (%) (Auto) 88.9 % (16.0-70.0) Lymphocytes (%) (Auto) 6.4 % (9.0-44.0) Neutrophils # (Auto) 10.4 TH/MM3 (1.8-7.7) Lymphocytes # (Auto) 0.8 TH/MM3 (1.0-4.8) Blood Urea Nitrogen 19 MG/DL (7-18) Random Glucose 157 MG/DL (74-106) Total Protein 5.7 GM/DL (6.4-8.2) Albumin 2.7 GM/DL (3.4-5.0) Estimat Glomerular Filtration Rate 61 ML/MIN (>89) Troponin I LESS THAN 0.02 NG/ML Free Triiodothyronine (T3) pg/dL 1.55 PG/ML (2.18-3.98) Thyroid Stimulating Hormone 3rd Gen 0.277 uIU/ML (0.358-3.740) Imaging Last Impressions Chest X-Ray 12/24/17 0600 Signed Impressions: Service Date/Time: Sunday, December 24, 2017 03:31 - CONCLUSION: Normal examination. ET tube and NG tube in good position. Fransico Malhotra MD PE at Discharge GENERAL: This is a well-nourished, well-developed patient, in no apparent distress. CARDIOVASCULAR: Regular rate and rhythm without murmurs, gallops, or rubs. RESPIRATORY: Diminished breath sounds at the bases, faint end expiratory wheezing. GASTROINTESTINAL: Abdomen soft, non-tender, nondistended. Normal active bowel sounds MUSCULOSKELETAL: Extremities without clubbing, cyanosis, or edema. NEURO: Alert & Oriented x4 to person, place, time, situation. Moves all ext x4 Pt update on day of discharge Patient reports he is feeling much better. Breathing more comfortable. Stable on 4 L nasal cannula which is what he uses at home. Hospital Course 67-year-old male admitted and treated for the followin. Acute on chronic hypercapnic and hypoxic respiratory failure. Patient initially required intubation. He was treated with steroids and antibiotics. He was weaned off the vent. Patient was followed by pulmonology. He is to follow-up outpatient with pulmonology. He was weaned down to his home dose oxygen. 2. Acute COPD exacerbation. Improved switched to p.o. Zithromax and prednisone. Pulmonology followed 3. Diabetes. Treated with sliding scale insulin with Accu-Cheks. Resume home medications on discharge. 4. Hypertension. Improved on Lopressor and Cardizem Pt Condition on Discharge: Good Discharge Disposition: Disch w/ Home Health Serv Discharge Time: > 30 minutes Discharge Instructions DIET: Follow Instructions for: Heart Healthy Diet Activities you can perform: Regular-No Restrictions Follow up Referrals: PCP Follow-up - 1 Week PCP [facility]IC[facility] Pulmonology - 1 Week Pulmonology @ [facility] with Juan Jose Hyman MD New Medications: Diltiazem CD 24 HR (Cardizem CD 24 HR) 120 Mg Caper 120 MG PO DAILY for Blood Pressure Management, #30 CAP 0 Refills Metoprolol Tartrate (Metoprolol Tartrate) 25 Mg Tab 25 MG PO Q12HR for Blood Pressure Management, #60 TAB Prednisone (Prednisone) 20 Mg Tab 40 MG PO DAILY for Control Inflammation, #8 TAB Continued Medications: Albuterol 18 GM Inh (Ventolin Hfa 18 GM Inh) 90 Mcg/Act Aer 2 PUFF INH Q4-6H PRN for SHORTNESS OF BREATH, #1 INHALER 0 Refills Budesonide-Formoterol Inh (Symbicort Inh) 160-4.5 Mcg/Act Aero 1 PUFF INH Q12HR for COPD for 30 Days, INHALER Fluticasone Nasal [place] (Fluticasone Nasal [place]) 50 Mcg/Act Naspr 1 SPRAY NASAL BID for allergies, #1 BOTTLE 0 Refills 50 mcg/spray Metformin (Metformin) 500 Mg Tab 500 MG PO BIDPC for Blood Sugar Management, #60 TAB 0 Refills With meals Deirdre Reyes MD December 27, 2017 08:55
[2017-12-27] MEDS: AZITHROMYCIN 250 MG TAB PO SCH (11:57)
[2017-12-27 12:00] VITALS: PULSE 111
--- NOTE | 2017-12-27 17:41 | ECHRPT ---
Indication: Heart failure, unspecified CONCLUSIONS The left ventricular systolic function cannot be seen at all in parasternal views and normal or mild ly reduced in the apical views. Cannot exclude mild concentric left ventricular hypertro Normal left ventricular size. The aortic root is normal in size on limited imaging. Probaly trileaflet aortic valve. Structurally normal tricuspid valve on limited imaging. The pulmonary valve is not well visualized. The inferior vena cava is not adequately visualized. BP: / HR: Rhythm: Sinus MEASUREMENTS (Male / Female) Normal Values Technical Quality:Poor 2D ECHO LV Diastolic Diameter PLAX 4.9 cm 4.2 - 5.9 / 3.9 - 5.3 cm LV Systolic Diameter PLAX 3.9 cm IVS Diastolic Thickness 1.4 cm 0.6 - 1.0 / 0.6 - 0.9 cm LVPW Diastolic Thickness 1.4 cm 0.6 - 1.0 / 0.6 - 0.9 cm LV Relative Wall Thickness 0.6 LVOT Diameter 2.6 cm M-MODE Aortic Root Diameter MM 3.0 cm LA Systolic Diameter MM 3.8 cm LA Ao Ratio MM 1.3 AV Cusp Separation MM 2.3 cm DOPPLER AV Peak Velocity 113.0 cm/s AV Peak Gradient 5.1 mmHg LVOT Peak Velocity 93.3 cm/s LVOT Peak Gradient 3.5 mmHg AV Area Cont Eq pk 4.4 cm Mitral E Point Velocity 100.0 cm/s Mitral A Point Velocity 94.8 cm/s Mitral E to A Ratio 1.1 LV E' Septal Velocity 7.1 cm/s Mitral E to LV E' Septal Ratio 14.0 PV Peak Velocity 97.7 cm/s PV Peak Gradient 3.8 mmHg FINDINGS LEFT VENTRICLE The left ventricular systolic function cannot be seen at all in parasternal views and normal or mild ly reduced in the apical views. Cannot exclude mild concentric left ventricular hypertro Normal left ventricular size. RIGHT VENTRICLE Normal right ventricular size and systolic function. LEFT ATRIUM The left atrial size is normal. RIGHT ATRIUM The right atrial size is normal. AORTA The aortic root is normal in size on limited imaging. MITRAL VALVE Structurally normal mitral valve. No mitral valve stenosis or regurgitation. AORTIC VALVE Probaly trileaflet aortic valve. No aortic valve stenosis or regurgitation. TRICUSPID VALVE Structurally normal tricuspid valve on limited imaging. No tricuspid valve stenosis or regurgitation . PULMONARY VALVE The pulmonary valve is not well visualized. VESSELS The inferior vena cava is not adequately visualized. PERICARDIUM No pericardial effusion. Fracisco Barajas MD (Electronically Signed) Final Date:27 Dec 2017 17:40
--- NOTE | 2017-12-30 13:08 | RSPPFT ---
DATE OF PROCEDURE: 12/27/17 COMMENTS: Spirometry shows FVC of 1.7 at 45% of predicted, FEV1 of 0.7 at 25%, FEV1/FVC ratio is decreased. Flow is decreased at FEF 25, FEF 50, FEF 75 and FEF 25-75. There is no response after bronchodilator treatment. Flow volume loop indicates an obstructive pattern. IMPRESSION: 1. Severe obstructive lung disease. 2. No response after bronchodilator treatment.
== END 2017-12-27 14:10 | disposition home health service (06) | DRG 208 ==
LOC: NEPE 09:54 → NEDA 11:31 → HIMW 16:50 → N04A 12-25 11:11
PROVIDERS: ADMIT Family Medicine; ATTEND Family Medicine
PROC: 5A1935Z Respiratory Ventilation, Less than 24 Consecutive Hours (ICD-10-PCS; principal; 2017-12-23)
DX: J96.21 Acute and chronic respiratory failure with hypoxia (principal); N17.9 Acute kidney failure, unspecified; J44.1 Chronic obstructive pulmonary disease with (acute) exacerbation; E11.65 Type 2 diabetes mellitus with hyperglycemia; Z99.81 Dependence on supplemental oxygen; F41.9 Anxiety disorder, unspecified; E88.09 Other disorders of plasma-protein metabolism, not elsewhere classified; I10 Essential (primary) hypertension; J96.22 Acute and chronic respiratory failure with hypercapnia; D72.829 Elevated white blood cell count, unspecified; E66.01 Morbid (severe) obesity due to excess calories; Z51.5 Encounter for palliative care; Z68.32 Body mass index [BMI] 32.0-32.9, adult; Z79.52 Long term (current) use of systemic steroids; Z79.899 Other long term (current) drug therapy; Z87.891 Personal history of nicotine dependence
CPT/HCPCS: 36600; 71045; 80053; 81001; 82550; 82805; 82948; 83605; 83735; 84100; 84439; 84443; 84481; 84484; 85025; 85610; 85730; 87040; 87449; 87641; 87804; 93005; 93306; 94002; 94003; 94060; 94640; 94664; 96365; J0456; J0696; J1644; J2920; J7030; J7050; J7120; J7512; J7613; J7626